=== PATIENT | female | born 1945 | race African-American/Black ===

== ENCOUNTER → 2016-07-31 | Outpatient (CLI) | payer MEDICARE ==
[2016-05-04 09:45] VITALS: BP 132/86
[~2016-07-31] MED LIST: ALLO300T PO; AMLO5TAB2 PO; ASPI325T4 PO; BIOT25005 PO; CA C1TAB28 PO; COLE625T2 PO; CRESTOR10 MG PO; DIAZ5TAB PO; ESOM40CA PO; HYDR-2666 PO; HYDR10SO PO; LIDO700A4 TP; LOSA50TA6 PO; METO-269 PO; MOVANTIK25 MG PO; SULF1TAB24 PO; SULI150T PO
--- NOTE | 2016-07-31 11:24 | RAD ---
Indication lung cancer. Lymphoma. Follow-up. Noncontrast imaging through the chest was performed and is compared to a study 01/31/2016. The ascending thoracic aorta is prominent measuring approximately 4.3 cm in greatest dimension similar to the previous exam. Some coronary artery calcification is noted. An acute finding in the mediastinum is not seen. Significant hilar or mediastinal adenopathy is not seen. No significant axillary adenopathy is seen. Imaging through the upper abdomen demonstrates several low-density masses in the liver compatible with cysts. The appearance is very similar to the previous exam. Some scarring is noted in the left upper lobe, likely on a postradiation basis. The appearance is similar. An acute finding in the chest is not seen. There is no dominant soft tissue mass. Evidence of tumor recurrence is not seen. IMPRESSION: Stable chest. No evidence of an acute process or tumor recurrence. Stable scarring in the left upper lobe likely on a postradiation basis. Hepatic cysts. Unchanged dilatation of the ascending thoracic aorta PQRS Compliance Statement: One or more of the following individualized dose reduction techniques were utilized for this examination: 1. Automated exposure control 2. Adjustment of the mA and/or kV according to patient size 3. Use of iterative reconstruction technique
== END | disposition home or self-care (01) ==
LOC: CT 10:15
PROVIDERS: ATTEND Radiology Radiation Oncology
DX: C34.90 Malignant neoplasm of unspecified part of unspecified bronchus or lung (principal); Z85.72 Personal history of non-Hodgkin lymphomas; K76.89 Other specified diseases of liver
CPT/HCPCS: 71250

== ENCOUNTER → 2017-02-05 | Outpatient (CLI) | payer MEDICARE ==
[2016-05-04 09:45] VITALS: BP 132/86
[~2017-02-05] MED LIST changes: -ASPI325T4 PO; +ASPI325T8 PO; -BIOT25005 PO; +BIOT25006 PO; +COLE625T12 PO; -COLE625T2 PO; -HYDR-2666 PO; +HYDR-2758 PO
--- NOTE | 2017-02-05 10:44 | RAD ---
EXAM: CT of the chest without intravenous contrast. HISTORY: Left upper lobe lung cancer. TECHNIQUE: Computed tomography of the chest was performed without intravenous contrast. COMPARISON: 07/31/2016. FINDINGS: Images of the upper abdomen reveal multiple stable cysts in the liver that measure up to 5 cm. Bone windows reveal no suspicious lesions. There is a nondisplaced fracture of the left anterior 3rd rib. There are no pathologically enlarged mediastinal or axillary lymph nodes. There is no pleural or pericardial effusion. The heart is not enlarged. There are atherosclerotic calcifications of the coronary arteries. A scarlike density in the left upper lobe measures 5.7 x 2.7 cm and is decreased in size. This is mostly posttreatment change about the previously noted lesion. There are no clearly new nodules. IMPRESSION: 1. A region of posttreatment change in the left upper lobe has decreased in size. No evidence of metastatic disease. *One or more of the following individualized dose reduction techniques were utilized for this examination: 1. Automated exposure control. 2. Adjustment of the mA and/or kV according to patient size. 3. Use of iterative reconstruction technique.
== END | disposition home or self-care (01) ==
LOC: CT 09:32
PROVIDERS: ATTEND Radiology Radiation Oncology
DX: C34.12 Malignant neoplasm of upper lobe, left bronchus or lung (principal)
CPT/HCPCS: 71250

== ENCOUNTER 2017-07-03 08:10 | Emergency (ER) | payer MEDICARE ==
[2017-07-03 08:47] LABS: ADD MAN DIFF? YES; BASO % 1 % (0-3); EOS # 0.1 x10^3/uL (0.0-0.7); EOS % 1 % (0-3); HEMATOCRIT 42.1 % (36.0-47.0); HEMOGLOBIN 14.2 g/dL (12.0-15.5); LYMPH # 2.3 x10^3/uL (1.0-4.8); LYMPH % 47 % (24-48); MEAN CORPUSCULAR HEMOGLOBIN 31 pg (25-35); MEAN CORPUSCULAR HGB CONC 34 g/dL (31-37); MEAN CORPUSCULAR VOLUME 92 fL (79-100); MONO # 0.4 x10^3/uL (0.0-1.1); MONO % 9 % (0-9); NEUT # 2.2 x10^3uL (1.8-7.7); NEUT % 43 % (31-73); PLATELET COUNT 236 x10^3/uL (140-400); RED BLOOD COUNT 4.59 x10^6/uL (3.50-5.40); RED CELL DISTRIBUTION WIDTH 14.1 % (11.5-14.5)
[2017-07-03] MEDS: DOCUSATE 100 MG/10 ML SOLUTION. AS (08:51)
[2017-07-03] MEDS: MECLIZINE HCL 12.5 MG TABLET. PO (08:51)
[2017-07-03] MEDS: ONDANSETRON PF 4 MG/2 ML VIAL. IV (08:51)
[2017-07-03] MEDS: IV NORMAL SALINE 1000ML BAG 1,000 ML IV (08:51)
[2017-07-03 08:57] LABS: ANION GAP 10 (6-14); BLOOD UREA NITROGEN 15 mg/dL (7-20); BUN/CREATININE RATIO 19 (6-20); CALCIUM 9.4 mg/dL (8.5-10.1); CARBON DIOXIDE 30 mmol/L (21-32); CHLORIDE 101 mmol/L (98-107); CREATININE 0.8 mg/dL (0.6-1.0); GFR 85.3; GLUCOSE 115 mg/dL (70-99); POTASSIUM 3.4 mmol/L (3.5-5.1); SODIUM 141 mmol/L (136-145)
[2017-07-03 09:03] LABS: ALBUMIN 3.6 g/dL (3.4-5.0); ALBUMIN/GLOBULIN RATIO 0.7 (1.0-1.7); ALK PHOS 91 U/L (46-116); ALT (SGPT) 37 U/L (14-59); AST (SGOT) 35 U/L (15-37); LIPASE 191 U/L (73-393); MAGNESIUM 1.6 mg/dL (1.8-2.4); TOTAL BILIRUBIN 0.4 mg/dL (0.2-1.0); TOTAL PROTEIN 8.6 g/dL (6.4-8.2)
[2017-07-03 09:05] LABS: TROPONINI < 0.017 ng/mL (0.000-0.055)
[2017-07-03 09:10] LABS: CKMB INDEX 0.9 % (0-4); CKMB MASS 1.4 ng/mL (0.0-3.6); CREATINE KINASE 163 U/L (26-192)
[2017-07-03 09:10] LABS: NT-PRO BNP 102 pg/mL (0-124)
[2017-07-03 09:11] LABS: THYROID STIM HORMONE (TSH) 2.718 uIU/mL (0.358-3.74)
[2017-07-03 11:07] LABS: % BANDS 1 % (0-9); % EOS 1 % (0-5); % LYMPHS 43 % (24-48); % MONOS 9 % (0-10); % SEGS 46 % (35-66); PLT ESTIMATE ADEQUATE (ADEQUATE)
== END 2017-07-03 11:17 | disposition home or self-care (01) ==
LOC: ER 08:10
DX: R42 Dizziness and giddiness (principal); H61.23 Impacted cerumen, bilateral; K21.9 Gastro-esophageal reflux disease without esophagitis; E78.00 Pure hypercholesterolemia, unspecified; I10 Essential (primary) hypertension; Z90.710 Acquired absence of both cervix and uterus; Z88.5 Allergy status to narcotic agent
CPT/HCPCS: 36415; 71045; 80053; 82553; 83690; 83735; 83880; 84443; 84484; 85007; 85025; 93005; 96361; 96374; 99285-25; J2405; J7030; J8597

== ENCOUNTER → 2017-07-26 | Outpatient (CLI) | payer MEDICARE ==
[2017-07-26] MEDS: IOHEXOL 300 MG/ML 100ML VIAL. IV (09:04)
[2017-07-26] MEDS: IOHEXOL 240 MG/ML 50ML VIAL. PO (09:05)
== END | disposition home or self-care (01) ==
LOC: CT 07:22
DX: C83.39 Diffuse large B-cell lymphoma, extranodal and solid organ sites (principal); M47.896 Other spondylosis, lumbar region; K42.9 Umbilical hernia without obstruction or gangrene; R91.1 Solitary pulmonary nodule
CPT/HCPCS: 71260; 74177; Q9966; Q9967

== ENCOUNTER → 2017-08-05 | Outpatient (CLI) | payer MEDICARE | END | disposition home or self-care (01) | LOC: PETSC 11:13 | DX: C34.92 Malignant neoplasm of unspecified part of left bronchus or lung (principal); K76.9 Liver disease, unspecified; Z90.710 Acquired absence of both cervix and uterus | CPT/HCPCS: 78815; A9552 ==

== ENCOUNTER 2017-10-03 08:48 | Emergency (ER) | payer MEDICARE ==
[2017-10-03] MEDS: DIPHTH,PERTUSS(ACELL),TET TOX 0.5 ML DISP.SYRIN. VAX IM (10:14)
== END 2017-10-03 10:28 | disposition home or self-care (01) ==
LOC: ER 08:48
DX: L02.211 Cutaneous abscess of abdominal wall (principal); E78.00 Pure hypercholesterolemia, unspecified; E03.9 Hypothyroidism, unspecified; I10 Essential (primary) hypertension; Z90.710 Acquired absence of both cervix and uterus
CPT/HCPCS: 90471; 90715; 99283-25

== ENCOUNTER → 2018-02-14 | Outpatient (CLI) | payer MEDICARE ==
[2017-10-03 09:19] VITALS: BP 132/76
[~2018-02-14] MED LIST changes: -AMLO5TAB2 PO; +AMLO5TAB7 PO; +CLIN150C14 PO; +CONTRAST GIVEN. MC PRN; +IOHEXOL 240 MG/ML 50ML VIAL. PO ONE; +IOHEXOL 300 MG/ML 100ML VIAL. IV ONE; -LOSA50TA6 PO; +LOSA50TA7 PO; +MECL12.52 PO; +MUPI15CR TP
--- NOTE | 2018-02-14 10:59 | RAD ---
CT of the chest, abdomen, and pelvis with contrast 02/14/2018 INDICATION: History of lymphoma. COMPARISON STUDY: PET/CT August 05, 2017 TECHNIQUE: Multidetector CT imaging of the chest was performed following administration of IV contrast. FINDINGS: CHEST: No pathologically enlarged axillary adenopathy or supraclavicular adenopathy is identified. No mediastinal adenopathy is seen. Heart size is top normal. No pericardial effusion is seen. Some coronary calcification is noted. Area of consolidation in the left upper lobe with associated volume loss is stable in the interim since comparison exam. Small subpleural nodule in the left upper lobe measuring 3 mm in diameter is also stable (axial image 15). No other new masses or consolidations are identified. No pleural effusion is seen. Abdomen pelvis: Multiple low density lesions involving the liver are unchanged from comparison study, consistent with cysts/hamartoma. Solid viscera of the abdomen demonstrate no acute abnormality. There is no evidence of bowel obstruction. No acute inflammatory changes involving visualized bowel are identified. The appendix is unremarkable. The bladder is unremarkable. No free fluid or free air is seen in the abdomen or pelvis. Patient is status post hysterectomy. No pathologically enlarged inguinal, abdominal, or pelvic adenopathy is identified. No evidence of acute osseous abnormality is seen. Degenerative changes of the thoracic and lumbosacral spine noted. IMPRESSION: 1.Stable CT appearance of the chest abdomen and pelvis 2. Stable focal consolidation the left upper lobe with associated mild volume loss 3. No acute intra-abdominal findings CT DOSING PQRS STATEMENT: One or more of the following individualized dose reduction techniques were utilized for this examination: 1. Automated exposure control 2. Adjustment of the mA and/or kV according to patient size 3. Use of iterative reconstruction technique Electronically signed by: Ricco Jay MD (02/14/2018 10:56 AM) [id number]
== END | disposition home or self-care (01) ==
LOC: CT 08:54
PROVIDERS: ATTEND Internal Medicine Hematology & Oncology
DX: M51.37 Other intervertebral disc degeneration, lumbosacral region (principal); M51.34 Other intervertebral disc degeneration, thoracic region; Z90.710 Acquired absence of both cervix and uterus; Z85.71 Personal history of Hodgkin lymphoma
CPT/HCPCS: 71260; 74177; Q9966; Q9967

== ENCOUNTER 2018-05-02 04:29 | Emergency (ER) | payer MEDICARE ==
[~2018-05-02] VITALS: Ht 154.9 cm; Wt 88.5 kg
[~2018-05-02 04:29] MED LIST changes: -CONTRAST GIVEN. MC PRN; -HYDR-2758 PO; +HYDR-2761 PO; -IOHEXOL 240 MG/ML 50ML VIAL. PO ONE; -IOHEXOL 300 MG/ML 100ML VIAL. IV ONE; +LOSA-73 PO; -LOSA50TA7 PO
--- NOTE | 2018-05-02 05:00 | PHYS DOC ---
Past Medical History Past Medical History: Cancer, GERD, High Cholesterol, Hypertension, Other Additional Past Medical Histor: Non-Hodgkins lymphoma Past Surgical History: Hysterectomy, Tonsillectomy, Other Additional Past Surgical Histo: CATARACT SX Alcohol Use: None Drug Use: None Adult General Chief Complaint Chief Complaint: COUGH HPI HPI Patient is a 72 year old female who presents with coughing up blood. This started as a small amount approximately 8 days ago but became much worse since she woke up this morning. Patient denies any recent changes in weight. Cough seems to make this worse. Patient called her division chair and had doxycycline as well as prednisone prescribed which she has been on for the past 8 days. Patient notes that she has had some subjective fever, no chills, and has not taken her temperature. [] Review of Systems Review of Systems Constitutional: Denies fever or chills [] Eyes: Denies change in visual acuity, redness, or eye pain [] HENT: Denies nasal congestion or sore throat [] Respiratory: See history of present illness[] Cardiovascular: No chest pain or palpitations[] GI: Denies abdominal pain, nausea, vomiting, bloody stools or diarrhea [] : Denies dysuria or hematuria [] Musculoskeletal: Denies back pain or joint pain [] Integument: Denies rash or skin lesions [] Neurologic: Denies headache, focal weakness or sensory changes [] Endocrine: Denies polyuria or polydipsia [] All other systems were reviewed and found to be within normal limits, except as documented in this note. Current Medications Current Medications Current Medications Medications (Trade) Dose Ordered Sig/Gerardo Start Time Stop Time Status Last Admin Dose Admin Info (CONTRAST GIVEN -- Rx MONITORING) 1 each PRN DAILY PRN 05/02/18 05:45 05/04/18 05:44 Iohexol (Omnipaque 300 Mg/ml) 75 ml 1X ONCE 05/02/18 06:00 05/02/18 06:01 DC 05/02/18 05:49 75 ML Magnesium Sulfate 50 ml @ 25 mls/hr 1X ONCE 05/02/18 06:30 05/02/18 08:29 05/02/18 06:29 25 MLS/HR Potassium Chloride (Klor-Con) 40 meq 1X ONCE 05/02/18 06:00 05/02/18 06:01 DC 05/02/18 06:29 40 MEQ Allergies Allergies Allergies Coded Allergies Type Severity Reaction Last Updated Verified codeine Allergy Intermediate Itching 08/17/13 Yes Penicillins Allergy Unknown 10/03/17 Yes Physical Exam Physical Exam Constitutional: Well developed, well nourished, no acute distress, non-toxic appearance. [] HENT: Normocephalic, atraumatic, bilateral external ears normal, oropharynx moist, no oral exudates, nose normal. [] Eyes: PERRLA, EOMI, conjunctiva normal, no discharge. [] Neck: Normal range of motion, no tenderness, supple, no stridor. [] Cardiovascular:Heart rate regular rhythm, no murmur [] Lungs & Thorax: Bilateral breath sounds clear to auscultation [] Abdomen: Bowel sounds normal, soft, no tenderness, no masses, no pulsatile masses. [] Skin: Warm, dry, no erythema, no rash. [] Back: No tenderness, no CVA tenderness. [] Extremities: No tenderness, no cyanosis, no clubbing, ROM intact, no edema. [] Neurologic: Alert and oriented X 3, normal motor function, normal sensory function, no focal deficits noted. [] Psychologic: Affect normal, judgement normal, mood normal. [] Current Patient Data Vital Signs Vital Signs Date Time Temp Pulse Resp B/P (MAP) Pulse Ox O2 Delivery O2 Flow Rate FiO2 05/02/18 05:15 71 117/69 (85) 94 Room Air 05/02/18 04:35 98.2 15 98.2 Lab Values Laboratory Tests Test 05/02/18 05:10 White Blood Count 8.1 x10^3/uL (4.0-11.0) Red Blood Count 4.21 x10^6/uL (3.50-5.40) Hemoglobin 13.2 g/dL (12.0-15.5) Hematocrit 38.6 % (36.0-47.0) Mean Corpuscular Volume 92 fL (79-100) Mean Corpuscular Hemoglobin 31 pg (25-35) Mean Corpuscular Hemoglobin Concent 34 g/dL (31-37) Red Cell Distribution Width 13.5 % (11.5-14.5) Platelet Count 234 x10^3/uL (140-400) Neutrophils (%) (Auto) 43 % (31-73) Lymphocytes (%) (Auto) 49 % (24-48) H Monocytes (%) (Auto) 7 % (0-9) Eosinophils (%) (Auto) 0 % (0-3) Basophils (%) (Auto) 1 % (0-3) Neutrophils # (Auto) 3.5 x10^3uL (1.8-7.7) Lymphocytes # (Auto) 4.0 x10^3/uL (1.0-4.8) Monocytes # (Auto) 0.6 x10^3/uL (0.0-1.1) Eosinophils # (Auto) 0.0 x10^3/uL (0.0-0.7) Basophils # (Auto) 0.1 x10^3/uL (0.0-0.2) Prothrombin Time 14.0 SEC (11.7-14.0) Prothrombin Time INR 1.1 (0.8-1.1) Sodium Level 144 mmol/L (136-145) Potassium Level 2.8 mmol/L (3.5-5.1) *L Chloride Level 106 mmol/L (98-107) Carbon Dioxide Level 33 mmol/L (21-32) H Anion Gap 5 (6-14) L Blood Urea Nitrogen 23 mg/dL (7-20) H Creatinine 1.0 mg/dL (0.6-1.0) Estimated GFR (Cockcroft-Gault) 65.9 Glucose Level 103 mg/dL (70-99) H Calcium Level 9.6 mg/dL (8.5-10.1) Magnesium Level 1.4 mg/dL (1.8-2.4) L Laboratory Tests 05/02/18 05:10 Laboratory Tests 05/02/18 05:10 EKG EKG [] Radiology/Procedures Radiology/Procedures [PROCEDURE: CT CHEST W/CONTRAST CT chest with contrast 05/02/2018. Reason for exam: Worsening hemoptysis. History of lung cancer. Helical CT images were made through the chest using an infusion of 75 mL Omnipaque 300. Sagittal and coronal reconstructions were obtained. Exposure: One or more of the following individualized dose reduction techniques were utilized for this examination: 1. Automated exposure control 2. Adjustment of the mA and/or kV according to patient size 3. Use of iterative reconstruction technique. Comparison is made with a prior study of 07/26/2017. FINDINGS: A bandlike opacity persists in the left upper lobe and appears similar to the prior exam. This could be posttreatment in nature. There is now a small area of groundglass infiltrate medially in the right lower lobe. It is noted that there is a vessel supplying this region apparently arising from the aorta, and this is consistent with pulmonary sequestration. No other pulmonary parenchymal abnormality is seen. The central airways show no obstruction. There appear to be secretions or fluid in right lower lobe bronchi. No enlarged lymph nodes have become apparent. Images through the upper abdomen again show multiple well-defined low-density liver lesions possibly indicating cysts. These appear unchanged. No new abnormality is seen. IMPRESSION: There is a small area of infiltrate in the right lower lobe. This could indicate an area of hemorrhage in the lung. There is a small systemic artery arising from the aorta and supplying this region. This suggests pulmonary sequestration, although the cause for hemorrhage, if present, is unknown. ] Course & Med Decision Making Course & Med Decision Making Pertinent Labs and Imaging studies reviewed. (See chart for details) ED course: Patient arrived, was placed in bed, in tolerated exam well. After the return of the low potassium, oral supplementation was administered and a magnesium level was ordered. Patient was transported to and from CT without any complications. At 6 AM, patient care was endorsed to Dr. Alvarado with CT results pending. Magnesium replacement was additionally ordered. Medical decision making: Patient does not appear to be anemic. Patient does have hypokalemia and hypomagnesemia. Given her history of previous lung cancer and the hemoptysis, concern is present for new tumor versus infection. Less likely based on her history is pulmonary embolism.[] 6:35 AM: Pt care assumed from Dr Ritter at 6 AM shift change. Patient has been reassessed. Patient states that for the past 10 days or so, she has had a cough productive of some sputum, which initially started out as whitish, but became increasingly bloody. She states that over the past 24 hours she has coughed up 3 specimens of mucus, none bigger than a quarter dollar, but the last one of which this morning was more bright red blood and mucus. She states that yesterday the blood that was mixed with her mucus seemed somewhat darker and she thought that it was clearing up. She called her division chair office, as she has a past history of lung cancer, and was prescribed doxycycline and prednisone, which she has been taking for the past 8 days. She denies any significant shortness of breath, different than her baseline. She does use an inhaler chronically. She has not had any pleuritic pain. On exam, she appears nontoxic, is coherent, has some faint expiratory wheezes in her right lower lobe. Her CT and labs have been reviewed. She feels well enough to go home. I discussed the patient's case and imaging and lab results with her division chair , Dr. Echols. He recommended starting the patient on a quinolone, and will see the patient in the office on Wednesday at 3:30 PM. The patient feels well enough to go home, and I discussed test results, the need for close follow-up and return precautions. Dragon Disclaimer Dragon Disclaimer This electronic medical record was generated, in whole or in part, using a voice recognition dictation system. Departure Departure Impression: Primary Impression: Pneumonia Additional Impressions: Hemoptysis Hypokalemia Hypomagnesemia Disposition: 01 HOME, SELF-CARE Condition: STABLE Referrals: ANNE LUNA MD (PCP) KENIA ECHOLS MD Patient Instructions: Hemoptysis, Pneumonia, Adult Additional Instructions: Return to medical care for any new or worsening symptoms, development of increasing shortness of breath, development of significant or increased blood and urine mucus, fevers, dizziness, lightheadedness, or any other new, or concerning symptoms. Dr. Echols will see you in the office at 3:30 PM on Wednesday. Please call Wednesday morning to confirm the appointment time. Scripts Magnesium Oxide (MAGNESIUM OXIDE) 400 Mg Tablet 1 TAB PO BID for 14 Days, #28 TAB 0 Refills Prov: MAGED ALVARADO MD 05/02/18 Potassium Chloride (POTASSIUM CHLORIDE) 20 Meq Tablet.er 20 MEQ PO DAILY for 14 Days, #14 TAB.SR Prov: MAGED ALVARADO MD 05/02/18 Levofloxacin (LEVAQUIN) 750 Mg Tablet 1 TAB PO DAILY, #7 TAB Prov: MAGED ALVARADO MD 05/02/18 Problem Qualifiers EZRARASHADDIANA DO May 02, 2018 05:00 MAGED ALVARADO MD May 02, 2018 06:41
[2018-05-02 05:22] LABS: BASO # 0.1 x10^3/uL (0.0-0.2); BASO % 1 % (0-3); EOS % 0 % (0-3); HEMATOCRIT 38.6 % (36.0-47.0); HEMOGLOBIN 13.2 g/dL (12.0-15.5); LYMPH % 49 % (24-48); MEAN CORPUSCULAR HEMOGLOBIN 31 pg (25-35); MEAN CORPUSCULAR HGB CONC 34 g/dL (31-37); MEAN CORPUSCULAR VOLUME 92 fL (79-100); MONO # 0.6 x10^3/uL (0.0-1.1); MONO % 7 % (0-9); NEUT # 3.5 x10^3uL (1.8-7.7); NEUT % 43 % (31-73); PLATELET COUNT 234 x10^3/uL (140-400); RED BLOOD COUNT 4.21 x10^6/uL (3.50-5.40); RED CELL DISTRIBUTION WIDTH 13.5 % (11.5-14.5); WHITE BLOOD COUNT 8.1 x10^3/uL (4.0-11.0)
[2018-05-02 05:27] LABS: CALCIUM 9.6 mg/dL (8.5-10.1); GFR 65.9
[2018-05-02 05:30] LABS: POTASSIUM 2.8 mmol/L (3.5-5.1)
[2018-05-02] MEDS ORDERED: CONTRAST GIVEN. MC PRN (05:45)
[2018-05-02] MEDS ORDERED: POTASSIUM CHLORIDE 20 MEQ TABLET.ER. PO ONE (06:00)
[2018-05-02] MEDS ORDERED: IOHEXOL 300 MG/ML 100ML VIAL. IV ONE (06:00)
--- NOTE | 2018-05-02 06:13 | RAD ---
CT chest with contrast 05/02/2018. Reason for exam: Worsening hemoptysis. History of lung cancer. Helical CT images were made through the chest using an infusion of 75 mL Omnipaque 300. Sagittal and coronal reconstructions were obtained. Exposure: One or more of the following individualized dose reduction techniques were utilized for this examination: 1. Automated exposure control 2. Adjustment of the mA and/or kV according to patient size 3. Use of iterative reconstruction technique. Comparison is made with a prior study of 07/26/2017. FINDINGS: A bandlike opacity persists in the left upper lobe and appears similar to the prior exam. This could be posttreatment in nature. There is now a small area of groundglass infiltrate medially in the right lower lobe. It is noted that there is a vessel supplying this region apparently arising from the aorta, and this is consistent with pulmonary sequestration. No other pulmonary parenchymal abnormality is seen. The central airways show no obstruction. There appear to be secretions or fluid in right lower lobe bronchi. No enlarged lymph nodes have become apparent. Images through the upper abdomen again show multiple well-defined low-density liver lesions possibly indicating cysts. These appear unchanged. No new abnormality is seen. IMPRESSION: There is a small area of infiltrate in the right lower lobe. This could indicate an area of hemorrhage in the lung. There is a small systemic artery arising from the aorta and supplying this region. This suggests pulmonary sequestration, although the cause for hemorrhage, if present, is unknown. Electronically signed by: Rancho Pedroza Jr., MD (05/02/2018 6:09 AM) [facility]
[2018-05-02] MEDS ORDERED: MAGNESIUM SULFATE 2GM 50 ML IV ONE (06:30)
[2018-05-02] MEDS ORDERED: POTA20TA82 PO (06:46)
[2018-05-02] MEDS ORDERED: MAGN400T3 PO (06:46)
[2018-05-02] MEDS ORDERED: LEVO750T31 PO (06:46)
[2018-05-02 07:24] VITALS: BP 133/69
== END 2018-05-02 07:38 | disposition home or self-care (01) ==
LOC: ER 04:29
DX: J18.9 Pneumonia, unspecified organism (principal); R04.2 Hemoptysis; E87.6 Hypokalemia; E83.42 Hypomagnesemia; E78.00 Pure hypercholesterolemia, unspecified; K21.9 Gastro-esophageal reflux disease without esophagitis; I10 Essential (primary) hypertension; Z88.0 Allergy status to penicillin; Z88.5 Allergy status to narcotic agent
CPT/HCPCS: 36415; 71260; 80048; 83735; 85025; 85610; 96365; 99283; J3475; Q9967

== ENCOUNTER 2018-07-17 09:04 | Inpatient (IN) | payer MEDICARE ==
[~2018-07-17] VITALS: Ht 165.1 cm; Wt 88.9 kg
[~2018-07-17 09:04] MED LIST changes: +AMLO5TAB10 PO; -AMLO5TAB7 PO; +LEVO750T31 PO; +MAGN400T3 PO; +POTA20TA82 PO
[2018-07-17] MEDS ORDERED: ALBUTEROL SULFATE 2.5 MG/3 ML NEBU. NEB ONE (09:15)
[2018-07-17] MEDS ORDERED: IPRATRPIUM/ALBUTEROL 0.5/2.5MG 3 ML NEBU. NEB ONE (09:15)
[2018-07-17 09:35] LABS: BASO % 1 % (0-3); EOS % 1 % (0-3); HEMATOCRIT 42.6 % (36.0-47.0); HEMOGLOBIN 14.1 g/dL (12.0-15.5); LYMPH # 2.7 x10^3/uL (1.0-4.8); LYMPH % 38 % (24-48); MEAN CORPUSCULAR HEMOGLOBIN 31 pg (25-35); MEAN CORPUSCULAR HGB CONC 33 g/dL (31-37); MEAN CORPUSCULAR VOLUME 93 fL (79-100); MONO # 0.4 x10^3/uL (0.0-1.1); MONO % 6 % (0-9); NEUT # 3.9 x10^3uL (1.8-7.7); NEUT % 55 % (31-73); PLATELET COUNT 238 x10^3/uL (140-400); RED CELL DISTRIBUTION WIDTH 14.6 % (11.5-14.5); WHITE BLOOD COUNT 7.1 x10^3/uL (4.0-11.0)
--- NOTE | 2018-07-17 09:45 | RAD ---
AP chest. HISTORY: Cough, short of breath AP view was taken of the chest. There is linear scarring on the left without change compared to an old study from June 2017. Heart is normal in size. There are no acute infiltrates. There is no effusion. There is arthritis in both shoulders. IMPRESSION: 1. No acute infiltrates. Electronically signed by: Chavez Bautista MD (07/17/2018 9:42 AM) [facility]
[2018-07-17 09:55] LABS: CALCIUM 9.2 mg/dL (8.5-10.1); CREATININE 0.9 mg/dL (0.6-1.0); GFR 74.3; POTASSIUM 3.6 mmol/L (3.5-5.1)
[2018-07-17 10:00] LABS: ALBUMIN 3.5 g/dL (3.4-5.0); ALBUMIN/GLOBULIN RATIO 0.9 (1.0-1.7); TOTAL BILIRUBIN 0.4 mg/dL (0.2-1.0); TOTAL PROTEIN 7.4 g/dL (6.4-8.2)
[2018-07-17 10:19] LABS: INFLUENZA A PATIENT NEGATIVE (NEGATIVE); INFLUENZA B PATIENT NEGATIVE (NEGATIVE)
[2018-07-17] MEDS ORDERED: methylPREDNISolone SOD SUCC PF 125 MG/2 ML VIAL. IV ONE (11:00)
[2018-07-17] MEDS ORDERED: ALBUTEROL SULFATE 2.5 MG/3 ML NEBU. CONT NEB ONE (11:00)
--- NOTE | 2018-07-17 11:02 | PHYS DOC ---
Past Medical History Past Medical History: Cancer, GERD, High Cholesterol, Hypertension, Other Additional Past Medical Histor: Non-Hodgkins lymphoma Past Surgical History: Hysterectomy, Tonsillectomy, Other Additional Past Surgical Histo: CATARACT SX Alcohol Use: None Drug Use: None Adult General Chief Complaint Chief Complaint: DYSPNEA/RESPIRATOY DISTRESS HPI HPI Patient is a 73 year old female who presents with shortness of breath. This is been going on for approximately the past week or so. Patient was seen by her heel edge inker machine and started on additional treatment to include doxycycline. She reports that this is not getting any better and in fact getting worse over time. Patient notes that she is unable to lay flat due to increased shortness of breath which is also new for her. Exertion as well as laying flat make it worse. Her medicines help but not fully. Denies any fever. Notes that there is a cough that is nonproductive.[] Review of Systems Review of Systems Constitutional: Denies fever or chills [] Eyes: Denies change in visual acuity, redness, or eye pain [] HENT: Denies nasal congestion or sore throat [] Respiratory: See history of present illness[] Cardiovascular: No chest pain or palpitations[] GI: Denies abdominal pain, nausea, vomiting, bloody stools or diarrhea [] : Denies dysuria or hematuria [] Musculoskeletal: Denies back pain or joint pain [] Integument: Denies rash or skin lesions [] Neurologic: Denies headache, focal weakness or sensory changes [] Endocrine: Denies polyuria or polydipsia [] All other systems were reviewed and found to be within normal limits, except as documented in this note. Current Medications Current Medications Current Medications Medications (Trade) Dose Ordered Sig/Gerardo Start Time Stop Time Status Last Admin Dose Admin Albuterol Sulfate (Ventolin Neb Soln) 10 mg 1X ONCE 07/17/18 11:00 07/17/18 11:01 DC 07/17/18 11:20 10 MG Albuterol/ Ipratropium (Duoneb) 3 ml 1X ONCE 07/17/18 09:15 07/17/18 09:16 DC 07/17/18 09:32 3 ML Methylprednisolone Sodium Succinate (SOLU-Medrol 125MG VIAL) 125 mg 1X ONCE 07/17/18 11:00 07/17/18 11:01 DC 07/17/18 11:00 125 MG Allergies Allergies Allergies Coded Allergies Type Severity Reaction Last Updated Verified codeine Allergy Intermediate Itching 08/17/13 Yes Penicillins Allergy Unknown 10/03/17 Yes Physical Exam Physical Exam Constitutional: Well developed, well nourished, moderate discomfort, non-toxic appearance. [] HENT: Normocephalic, atraumatic, bilateral external ears normal, oropharynx moist, no oral exudates, nose normal. [] Eyes: PERRLA, EOMI, conjunctiva normal, no discharge. [] Neck: Normal range of motion, no tenderness, supple, no stridor. [] Cardiovascular:Heart rate regular rhythm, no murmur [] Lungs & Thorax: Bilateral breath sounds with inspiratory and expiratory wheezes , increased work of breathing[] Abdomen: Bowel sounds normal, soft, no tenderness, no masses, no pulsatile masses. [] Skin: Warm, dry, no erythema, no rash. [] Back: No tenderness, no CVA tenderness. [] Extremities: No tenderness, no cyanosis, no clubbing, ROM intact, no edema. [] Neurologic: Alert and oriented X 3, normal motor function, normal sensory function, no focal deficits noted. [] Psychologic: Affect normal, judgement normal, mood normal. [] Current Patient Data Vital Signs Vital Signs Date Time Temp Pulse Resp B/P (MAP) Pulse Ox O2 Delivery O2 Flow Rate FiO2 07/17/18 11:27 94 Nasal Cannula 3.0 07/17/18 09:10 97.4 106 24 164/94 (117) 97.4 Lab Values Laboratory Tests Test 07/17/18 09:20 07/17/18 09:50 White Blood Count 7.1 x10^3/uL (4.0-11.0) Red Blood Count 4.60 x10^6/uL (3.50-5.40) Hemoglobin 14.1 g/dL (12.0-15.5) Hematocrit 42.6 % (36.0-47.0) Mean Corpuscular Volume 93 fL (79-100) Mean Corpuscular Hemoglobin 31 pg (25-35) Mean Corpuscular Hemoglobin Concent 33 g/dL (31-37) Red Cell Distribution Width 14.6 % (11.5-14.5) H Platelet Count 238 x10^3/uL (140-400) Neutrophils (%) (Auto) 55 % (31-73) Lymphocytes (%) (Auto) 38 % (24-48) Monocytes (%) (Auto) 6 % (0-9) Eosinophils (%) (Auto) 1 % (0-3) Basophils (%) (Auto) 1 % (0-3) Neutrophils # (Auto) 3.9 x10^3uL (1.8-7.7) Lymphocytes # (Auto) 2.7 x10^3/uL (1.0-4.8) Monocytes # (Auto) 0.4 x10^3/uL (0.0-1.1) Eosinophils # (Auto) 0.0 x10^3/uL (0.0-0.7) Basophils # (Auto) 0.0 x10^3/uL (0.0-0.2) D-Dimer (Mary Beth) 0.68 ug/mlFEU (0.00-0.50) H Sodium Level 140 mmol/L (136-145) Potassium Level 3.6 mmol/L (3.5-5.1) Chloride Level 99 mmol/L (98-107) Carbon Dioxide Level 32 mmol/L (21-32) Anion Gap 9 (6-14) Blood Urea Nitrogen 12 mg/dL (7-20) Creatinine 0.9 mg/dL (0.6-1.0) Estimated GFR (Cockcroft-Gault) 74.3 BUN/Creatinine Ratio 13 (6-20) Glucose Level 144 mg/dL (70-99) H Calcium Level 9.2 mg/dL (8.5-10.1) Total Bilirubin 0.4 mg/dL (0.2-1.0) Aspartate Amino Transferase (AST) 24 U/L (15-37) Alanine Aminotransferase (ALT) 28 U/L (14-59) Alkaline Phosphatase 81 U/L (46-116) Troponin I Quantitative < 0.017 ng/mL (0.000-0.055) MT-Svg-V-Type Natriuretic Peptide 129 pg/mL (0-124) H Total Protein 7.4 g/dL (6.4-8.2) Albumin 3.5 g/dL (3.4-5.0) Albumin/Globulin Ratio 0.9 (1.0-1.7) L Influenza Type A Antigen Negative (NEGATIVE) Influenza Type B Antigen Negative (NEGATIVE) Laboratory Tests 07/17/18 09:20 Laboratory Tests 07/17/18 09:20 EKG EKG EKG shows a sinus rhythm at 72 bpm, left axis deviation, QTC of 429 ms, no ST elevations, interpreted by me at 0946 [] Radiology/Procedures Radiology/Procedures AP chest. HISTORY: Cough, short of breath AP view was taken of the chest. There is linear scarring on the left without change compared to an old study from June 2017. Heart is normal in size. There are no acute infiltrates. There is no effusion. There is arthritis in both shoulders. IMPRESSION: 1. No acute infiltrates. [] Course & Med Decision Making Course & Med Decision Making Pertinent Labs and Imaging studies reviewed. (See chart for details) ED course: Patient arrived, was placed in bed, in tolerated exam well. She was given a breathing treatment which didn't improve airflow and patient reported feeling better however there was still significant inspiratory and expiratory wheezes so an hour-long nebulizer treatment was administered along with IV steroids. 1240: After hour-long nebulizer treatment, lung sounds were improved however with trial of ambulation she desaturated to 88% with walking 10-15 feet. Consultation was made with her primary care physician who graciously admitted her. Medical decision making: Do not see any evidence of this being acute coronary syndrome nor CHF. Concerned about possibility of pulmonary embolism however her age-adjusted d-dimer is within normal limits and there is no respirophasic chest pain. Believe this to be asthma/COPD exacerbation especially in light of clearing with nebulizer treatments.[] Dragon Disclaimer Dragon Disclaimer This electronic medical record was generated, in whole or in part, using a voice recognition dictation system. Departure Departure Impression: Primary Impression: COPD exacerbation Disposition: ADMITTED INPATIENT Admitting Physician: Andres Fernández Condition: IMPROVED Referrals: ANDRES FERNÁNDEZ MD (PCP) DIANA MUNGUIA DO Jul 17, 2018 11:02
[2018-07-17] MEDS ORDERED: ONDANSETRON PF 4 MG/2 ML VIAL. IV PRN (13:00)
[2018-07-17] MEDS ORDERED: ACETAMINOPHEN 325 MG TABLET. PO PRN ×2 (13:00→15:15)
[2018-07-17 15:00] VITALS: BP 117/61
[2018-07-17] MEDS ORDERED: HYDROcodone/APAP 5/325MG 1 TAB TABLET PO PRN (15:15)
[2018-07-17] MEDS ORDERED: MAGNESIUM HYDROXIDE 2,400 MG/30 ML ORAL.SUSP. PO PRN (15:15)
[2018-07-17] MEDS ORDERED: guaiFENesin DM 200MG/20MG 10 ML SYRUP PO PRN (15:15)
[2018-07-17] MEDS ORDERED: diazePAM 5 MG TABLET PO PRN (15:15)
--- NOTE | 2018-07-17 15:17 | PDOC ---
Provider Note Provider Note history and physical dictated # [id number] ANNE LUNA MD Jul 17, 2018 15:17
[2018-07-17] MEDS ORDERED: ALBUTEROL SULFATE 2.5 MG/3 ML NEBU. NEB PRN (15:30)
[2018-07-17] MEDS: amLODIPine BESYLATE 10 MG TABLET PO SCH (16:00)
[2018-07-17] MEDS: METOPROLOL SUCC 24HR ER 25 MG TAB.ER.24H. PO SCH (16:00)
[2018-07-17] MEDS: IPRATRPIUM/ALBUTEROL 0.5/2.5MG 3 ML NEBU. NEB SCH ×2 (16:00→20:14)
[2018-07-17] MEDS: LOSARTAN POTASSIUM 50 MG TABLET. PO SCH (16:00)
[2018-07-17] MEDS: PANTOPRAZOLE 40 MG TABLET.DR. PO SCH (16:30)
[2018-07-17] MEDS ORDERED: MULT-317 PO (16:51)
[2018-07-17] MEDS ORDERED: CALC600T4 PO (16:51)
[2018-07-17] MEDS ORDERED: DOXY100C2 PO (16:58)
[2018-07-17] MEDS ORDERED: PRED-220 PO (16:58)
[2018-07-17] MEDS ORDERED: BENZ-8 PO (16:58)
[2018-07-17 16:59] LABS: BILIRUBIN,URINE NEGATIVE (NEG); CLARITY,URINE CLEAR; COLOR,URINE YELLOW; NITRITE,URINE NEGATIVE (NEG); PROTEIN,URINE NEGATIVE (NEG-TRACE); UROBILINOGEN,URINE 0.2 mg/dL (0.2 mg/dL)
[2018-07-17] MEDS: methylPREDNISolone SOD SUCC PF 40 MG/ML VIAL. IV SCH ×2 (17:10→21:04)
[2018-07-17] MEDS: ENOXAPARIN 40 MG/0.4 ML SYRINGE. SQ SCH (17:11)
[2018-07-17 17:14] LABS: BACTERIA,URINE 0 /HPF (0-FEW); RBC,URINE RARE /HPF (0-2); SQUAMOUS EPITHELIAL CELL,UR MOD /LPF; WBC,URINE 0 /HPF (0-4)
[2018-07-17] MEDS ORDERED: C.DIFF MED SCREEN BY RX. MC ONE (18:15)
--- NOTE | 2018-07-17 19:11 | HP ---
ADMIT DATE: 07/17/2018 LOCATION: She is in room 434. 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 She was short of breath with walking short distances and also when lying supine. She apparently spoke with her customer support agent, Dr. Echols who ordered doxycycline 100 mg b.i.d. and prednisone 30 mg daily for 5 days and Tessalon Perles 100 mg b.i.d., but her symptoms worsened and she sought help in the [facility] Emergency Room where she was noted to be hypoxic with oxygen saturations dropping to about 88% with walking in the Emergency Room. The patient's chest x-ray showed no infiltrate, but due to the hypoxia and dyspnea on exertion and bronchospasm, she was subsequently admitted to the hospital for further evaluation and treatment. ALLERGIES AND INTOLERANCES: INCLUDE PENICILLIN AND CODEINE. MEDICATIONS: Include amlodipine 10 mg every day, Crestor 10 mg every day, Wallace 5/325 one every 4 hours p.r.n., losartan 50 mg every day, metoprolol succinate 50 mg every day, Nexium 40 mg every day, potassium chloride 20 mEq every day, sulindac mg b.i.d., Valium 5 mg at bedtime p.r.n. and vitamin D 1000 units every day. 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 She also has a history of diverticulosis, non-Hodgkin's lymphoma in 2013, treated with chemo and radiation therapy. She had a colonoscopy in 2009, tonsillectomy, cataract extractions, colon polypectomy, bladder tacking procedure. SOCIAL HISTORY: She does not drink alcohol nor does she smoke cigarettes and she has not done so in the past. FAMILY HISTORY: Noncontributory. REVIEW OF SYSTEMS: GENERAL: There has been no fever, chills or sweats in the last 3 days. CARDIOVASCULAR: No chest pain. PULMONARY: She had shortness of breath and wheezing and coughing, dyspnea on exertion. GASTROINTESTINAL: She has had some loose stools since she started on her oral medication 3 days ago for her cough, which included the doxycycline, Tessalon Perles and the prednisone. SKIN: No rashes. The rest of systems reviewed are negative except as stated in history of present illness. PHYSICAL EXAMINATION: VITAL SIGNS: The temperature is 97.4 degrees, apical pulse is 80, respiratory rate is 18, blood pressure is 121/65, oxygen saturation 95% on 3 liters per nasal cannula. HEENT: Eyes: Gaze is conjugate. Mouth: Tongue is midline. NECK: There is no cervical lymphadenopathy or thyroid enlargement. HEART: Reveals an S1, S2. There is no S3 or murmur. LUNGS: Reveal some decreased breath sounds and bilateral expiratory wheezes. ABDOMEN: Soft, nontender. EXTREMITIES: Lower extremities without edema. SKIN: No rashes. NEUROLOGIC: Revealed no focal weakness of the extremity or facial asymmetry. She is coughing quite a bit in the room and had a dry cough while I was there. LABORATORY TESTS: White count was normal at 7.1, hemoglobin 14.1, platelet count 238,000, 55 polys, 38 lymphocytes. D-dimer was 0.68. Sodium 140, potassium 3.6, chloride 99, total CO2 is 32, BUN 12, creatinine 0.9, blood sugar 144. Liver function tests normal, proBNP 129. Troponin level less than 0.017. Albumin 3.5. Influenza A and B serology negative. Chest x-ray showed no acute infiltrate. Heart is normal in size. No pleural effusion seen. An electrocardiogram was ordered, but I do not see the EKG in the chart as of yet. ASSESSMENT: 1. Acute bronchitis with bronchospasm. She failed outpatient oral antibiotics and oral prednisone. 2. Hypoxia noted in the Emergency Room, the oxygen saturation is dropping 88% on room air with walking. She had dyspnea on exertion also then. 3. 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 4. History of non-Hodgkin's lymphoma treated with chemo and radiation therapy in 2013. 5. Hypertension. 6. Hyperlipidemia. 7. Fibromyalgia. PLAN: At this time is admitted to the hospital. She will be treated with oxygen, DuoNeb nebulizer treatments, IV Solu-Medrol and Levaquin. We will order a sputum culture. We will get a CAT scan of the chest to rule out pneumonia and also, we will consult Dr. Echols for Pulmonary. As mentioned, we will obtain a sputum for Gram stain and culture. We will put her on Lovenox for deep vein thrombosis prophylaxis. We will also decrease the metoprolol and maybe we can even taper off of it. Other medications will be resumed except the Crestor is not formulary and she can get that from home. We will hold sulindac for the time being as she is going to be on some IV Solu-Medrol. Repeat CBC and BMP tomorrow. ANNE LUNA MD DR: ALBAN/josé JOB#: [id number] / [id number]
[2018-07-17 19:30] VITALS: BP 137/76
[2018-07-17 23:00] VITALS: BP 108/68
[2018-07-18 03:00] VITALS: BP 144/89
[2018-07-18 05:40] LABS: CALCIUM 9.5 mg/dL (8.5-10.1); CREATININE 0.8 mg/dL (0.6-1.0); GFR 85.1; POTASSIUM 4.2 mmol/L (3.5-5.1)
[2018-07-18 05:49] LABS: BASO % 0 % (0-3); EOS % 0 % (0-3); HEMATOCRIT 40.9 % (36.0-47.0); HEMOGLOBIN 13.7 g/dL (12.0-15.5); LYMPH % 22 % (24-48); MEAN CORPUSCULAR HEMOGLOBIN 31 pg (25-35); MEAN CORPUSCULAR HGB CONC 34 g/dL (31-37); MEAN CORPUSCULAR VOLUME 92 fL (79-100); MONO # 0.2 x10^3/uL (0.0-1.1); MONO % 3 % (0-9); NEUT # 3.5 x10^3uL (1.8-7.7); NEUT % 74 % (31-73); PLATELET COUNT 237 x10^3/uL (140-400); RED BLOOD COUNT 4.43 x10^6/uL (3.50-5.40); RED CELL DISTRIBUTION WIDTH 14.4 % (11.5-14.5); WHITE BLOOD COUNT 4.7 x10^3/uL (4.0-11.0)
[2018-07-18] MEDS: methylPREDNISolone SOD SUCC PF 40 MG/ML VIAL. IV SCH ×3 (05:55→22:13)
[2018-07-18 07:00] VITALS: BP 138/84
--- NOTE | 2018-07-18 07:07 | EKG ---
[facility] [address] [place] [address] Test Date: 2018-07-17 Test Time: 09:41:25 Pat Name: REYNALDO RICO Department: Room: 434 1 Gender: F Cremator: : 1945 Requested By: DIANA MUNGUIA Order Number: [id number] Reading MD: Jordan Jorge MD Measurements Intervals [place] Rate: 72 P: 45 AK: 164 QRS: -41 QRSD: 94 T: 74 QT: 390 QTc: 429 Interpretive Statements SINUS RHYTHM ABNORMAL LEFT AXIS DEVIATION LEFT ANTERIOR FASCICULAR BLOCK T ABNORMALITY IN HIGH LATERAL LEADS ABNORMAL ECG Electronically Signed On 07-26-2018 22:19:25 CDT by Jordan Jorge MD
[2018-07-18] MEDS: PANTOPRAZOLE 40 MG TABLET.DR. PO SCH (07:30)
[2018-07-18] MEDS: IPRATRPIUM/ALBUTEROL 0.5/2.5MG 3 ML NEBU. NEB SCH ×4 (07:32→19:54)
[2018-07-18] MEDS ORDERED: POTASSIUM CHLORIDE 20 MEQ TABLET.ER. PO SCH (08:00)
[2018-07-18] MEDS: LOSARTAN POTASSIUM 50 MG TABLET. PO SCH (08:10)
[2018-07-18] MEDS: CHOLECALCIFEROL (VITAMIN D3) 1,000 UNIT TABLET PO SCH (08:10)
[2018-07-18] MEDS: amLODIPine BESYLATE 10 MG TABLET PO SCH (08:10)
[2018-07-18] MEDS: METOPROLOL SUCC 24HR ER 25 MG TAB.ER.24H. PO SCH (09:00)
[2018-07-18] MEDS ORDERED: C.DIFF MED SCREEN BY RX. MC PRN (09:00)
--- NOTE | 2018-07-18 09:42 | RAD ---
PQRS Compliance Statement: One or more of the following individualized dose reduction techniques were utilized for this examination: 1. Automated exposure control 2. Adjustment of the mA and/or kV according to patient size 3. Use of iterative reconstruction technique CT CHEST WO CONTRAST Clinical Indication: COUGH /pneumonia HX: LUNG CA Comparison: CT chest with contrast, some are 2017. TECHNIQUE: Helical CT imaging of the chest is performed without IV contrast. Findings: No adenopathy in the chest. Limited evaluation of the mike without IV contrast. Ectasia of the ascending thoracic aorta is stable. Coronary artery disease. Cardiac size normal, no pericardial effusion. There is no pleural effusion. Linear opacity in the left upper lobe is stable and may be sequela of prior therapy. Tiny tracheal diverticulum is stable, image 10. 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 Groundglass opacity in this location on the prior study has resolved. The lungs are otherwise clear. Multiple probable hepatic cysts are stable. Old nonunited fracture of the left anterolateral third rib. Degenerative endplate spurring of the thoracic spine. IMPRESSION: 1. Groundglass opacity in the medial right lower lobe noted on the prior study has resolved. 2. Stable probable scarring in the left upper lobe. Electronically signed by: Jose Sloan MD (07/18/2018 9:39 AM) [id number]
--- NOTE | 2018-07-18 10:07 | PDOC2 ---
GI CONSULT Reason For Consult: Solid food dysphagia HPI: HPI: 73 y/o female admitted w/ bronchitis. H/o lung cancer s/p radiation and h/o NHL s/p chemo/radiation. GI asked to see re: dysphagia. She reports intermittent dysphagia w/ pills and solid foods x 1 month. Gets stuck in upper throat or midchest - no regurg, coughing, vomiting - eventually passes. No odynophagia. Denies h/o GERD but takes Nexium QD. Had some abdominal pain prior to admission - says was really sore from coughing and this has resolved. No diarrhea, constipation, hematemesis, hematochezia, or melena. Not really sure about weight loss but doesn't think so. Hungry this morning - was NPO for chest CT. Reports having EGD w/ dilation for similar symptoms w/ Dr. Snyder ~2 years ago. Other notes indicate last colonoscopy was in 2009, also h/o colon polyps. Past imaging notes diverticulosis and chest CT this admission notes hepatic cysts. No GB or pancreas history. Takes ASA 325mg QD and recently prednisone for pulm issues. PMH: PMH: lung cancer and NHL as above, HTN, HLD, ?GERD, diverticulosis, colon polyp bone marrow biopsy, hysterectomy, bladder tuck, tonsillectomy, cataract removal FH: Family History: Cancer (niece - breast cancer in her 30s) Social History: Smoke: No ALCOHOL: none Drugs: None ROS: GEN: Denies fevers, chills, sweats HEENT: Denies blurred vision, sore throat CV: Denies chest pain RESP: +SOA +cough GI: Per HPI : Denies hematuria, dysuria ENDO: Denies weight changes NEURO: Denies confusion, dizziness MSK: Denies weakness, joint pain/swelling SKIN: Denies jaundice, pruritus Vitals: Vitals: Vital Signs Date Time Temp Pulse Resp B/P (MAP) Pulse Ox O2 Delivery O2 Flow Rate FiO2 07/18/18 07:34 94 Nasal Cannula 2.0 07/18/18 07:00 98.4 98 3 138/84 (102) 98.4 Labs: Labs: Laboratory Tests Test 07/17/18 16:45 07/18/18 05:05 Urine Collection Type Unknown Urine Color Yellow Urine Clarity Clear Urine pH 6.0 Urine Specific [place] <=1.005 Urine Protein Negative mg/dL (NEG-TRACE) Urine Glucose (UA) Negative mg/dL (NEG) Urine Ketones (Stick) Negative mg/dL (NEG) Urine Blood Negative (NEG) Urine Nitrite Negative (NEG) Urine Bilirubin Negative (NEG) Urine Urobilinogen Dipstick 0.2 mg/dL (0.2 mg/dL) Urine Leukocyte Esterase Negative (NEG) Urine RBC Rare /HPF (0-2) Urine WBC 0 /HPF (0-4) Urine Squamous Epithelial Cells Mod /LPF Urine Bacteria 0 /HPF (0-FEW) White Blood Count 4.7 x10^3/uL (4.0-11.0) Red Blood Count 4.43 x10^6/uL (3.50-5.40) Hemoglobin 13.7 g/dL (12.0-15.5) Hematocrit 40.9 % (36.0-47.0) Mean Corpuscular Volume 92 fL (79-100) Mean Corpuscular Hemoglobin 31 pg (25-35) Mean Corpuscular Hemoglobin Concent 34 g/dL (31-37) Red Cell Distribution Width 14.4 % (11.5-14.5) Platelet Count 237 x10^3/uL (140-400) Neutrophils (%) (Auto) 74 % (31-73) Lymphocytes (%) (Auto) 22 % (24-48) Monocytes (%) (Auto) 3 % (0-9) Eosinophils (%) (Auto) 0 % (0-3) Basophils (%) (Auto) 0 % (0-3) Neutrophils # (Auto) 3.5 x10^3uL (1.8-7.7) Lymphocytes # (Auto) 1.0 x10^3/uL (1.0-4.8) Monocytes # (Auto) 0.2 x10^3/uL (0.0-1.1) Eosinophils # (Auto) 0.0 x10^3/uL (0.0-0.7) Basophils # (Auto) 0.0 x10^3/uL (0.0-0.2) Sodium Level 140 mmol/L (136-145) Potassium Level 4.2 mmol/L (3.5-5.1) Chloride Level 100 mmol/L (98-107) Carbon Dioxide Level 33 mmol/L (21-32) Anion Gap 7 (6-14) Blood Urea Nitrogen 15 mg/dL (7-20) Creatinine 0.8 mg/dL (0.6-1.0) Estimated GFR (Cockcroft-Gault) 85.1 Glucose Level 137 mg/dL (70-99) Calcium Level 9.5 mg/dL (8.5-10.1) Allergies: Coded Allergies: codeine (Verified Allergy, Intermediate, Itching, 08/17/13) Penicillins (Verified Allergy, Unknown, 10/03/17) Medications: Current Medications Medications (Trade) Dose Ordered Sig/Gerardo Route PRN Reason Start Time Stop Time Status Last Admin Dose Admin Albuterol Sulfate (Ventolin Neb Soln) 10 mg 1X ONCE CONT NEB 07/17/18 11:00 07/17/18 11:01 DC 07/17/18 11:20 Methylprednisolone Sodium Succinate (SOLU-Medrol 125MG VIAL) 125 mg 1X ONCE IV 07/17/18 11:00 07/17/18 11:01 DC 07/17/18 11:00 Levofloxacin/ Dextrose 150 ml @ 100 mls/hr 1X ONCE IV 07/17/18 14:15 07/17/18 15:44 DC 07/17/18 15:08 Methylprednisolone Sodium Succinate (SOLU-Medrol 40MG VIAL) 40 mg Q8HRS IV 07/17/18 15:30 07/18/18 05:55 Albuterol/ Ipratropium (Duoneb) 3 ml RTQID NEB 07/17/18 16:00 07/18/18 07:32 Enoxaparin Sodium (Lovenox 40mg Syringe) 40 mg Q24H SQ 07/17/18 16:00 07/17/18 17:11 Diazepam (Valium) 5 mg PRN QHS PRN PO ANXIETY 07/17/18 15:15 07/18/18 00:57 Imaging: Imaging: CXR IMPRESSION: 1. No acute infiltrates. Chest CT IMPRESSION: 1. Groundglass opacity in the medial right lower lobe noted on the prior study has resolved. 2. Stable probable scarring in the left upper lobe. PE: GEN: NAD HEENT: Atraumatic, PERRL LUNGS: NC, clear anteriorly HEART: RRR ABD: NABS, S/ND/NT EXTREMITY: No edema SKIN: No rashes, no jaundice NEURO/PSYCH: A & O 3 A/P: A/P: Bronchitis H/o lung cancer and NHL w/ chemo/rad Dysphagia - intermittent, solids and pills, past EGD w/ esophageal dilation ?GERD CRC screen, h/o polyp Diverticulosis Probable hepatic cysts - stable on chest CT -- Agree w/ PPI. Consider EGD at some point. Okay for PO today per GI. Will attempt to review records of past 'scopes. FELICIA QUEVEDO Jul 18, 2018 10:06
--- NOTE | 2018-07-18 10:17 | PDOC ---
PROGRESS NOTES Subjective Subjective coughing a lot. difficulty expectorating sputum and is thick and white when she does. afebrile. wbc normal. ct chest showed no pneumonia or recurrent tumor Objective Objective Vital Signs Date Time Temp Pulse Resp B/P (MAP) Pulse Ox O2 Delivery O2 Flow Rate FiO2 07/18/18 07:34 94 Nasal Cannula 2.0 07/18/18 07:00 98.4 98 3 138/84 (102) 98.4 Intake and Output 07/18/18 06:59 Intake Total 900 ml Output Total 1300 ml Balance -400 ml Intake Oral 900 ml Output Urine Total 1300 ml Physical Exam Abdomen: Soft Heart: Normal S1, Normal S2 Extremities: No edema General: Alert HEENT: Atraumatic Lungs: Other (mild rhonchi) Neuro: Normal speech Psych/Mental Status: Mental status NL Skin: No rashes Assessment Assessment 1. Acute bronchitis with bronchospasm. She failed outpatient oral antibiotics and oral prednisone. 2. Hypoxia noted in the Emergency Room, the oxygen saturation is dropping 88% on room air with walking. She had dyspnea on exertion also then. 3. 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 4. History of non-Hodgkin's lymphoma treated with chemo and radiation therapy in 2013. 5. Hypertension. 6. Hyperlipidemia. 7. Fibromyalgia. solid food and pill dysphagia Plan Plan of Care continue oxygen and nebulizer rx and iv solumedrol add mucinex sputum culture pulmonary consult GI consult noted consult SP for swallow eval. video swallow if necessary start mucinex 6 min RA walk today continue protonix Comment Review of Relevant I have reviewed the following items bernard (where applicable) has been applied. Labs Laboratory Tests Test 07/17/18 09:20 07/17/18 09:50 07/17/18 16:45 07/18/18 05:05 White Blood Count 7.1 x10^3/uL (4.0-11.0) 4.7 x10^3/uL (4.0-11.0) Red Blood Count 4.60 x10^6/uL (3.50-5.40) 4.43 x10^6/uL (3.50-5.40) Hemoglobin 14.1 g/dL (12.0-15.5) 13.7 g/dL (12.0-15.5) Hematocrit 42.6 % (36.0-47.0) 40.9 % (36.0-47.0) Mean Corpuscular Volume 93 fL (79-100) 92 fL (79-100) Mean Corpuscular Hemoglobin 31 pg (25-35) 31 pg (25-35) Mean Corpuscular Hemoglobin Concent 33 g/dL (31-37) 34 g/dL (31-37) Red Cell Distribution Width 14.6 % (11.5-14.5) 14.4 % (11.5-14.5) Platelet Count 238 x10^3/uL (140-400) 237 x10^3/uL (140-400) Neutrophils (%) (Auto) 55 % (31-73) 74 % (31-73) Lymphocytes (%) (Auto) 38 % (24-48) 22 % (24-48) Monocytes (%) (Auto) 6 % (0-9) 3 % (0-9) Eosinophils (%) (Auto) 1 % (0-3) 0 % (0-3) Basophils (%) (Auto) 1 % (0-3) 0 % (0-3) Neutrophils # (Auto) 3.9 x10^3uL (1.8-7.7) 3.5 x10^3uL (1.8-7.7) Lymphocytes # (Auto) 2.7 x10^3/uL (1.0-4.8) 1.0 x10^3/uL (1.0-4.8) Monocytes # (Auto) 0.4 x10^3/uL (0.0-1.1) 0.2 x10^3/uL (0.0-1.1) Eosinophils # (Auto) 0.0 x10^3/uL (0.0-0.7) 0.0 x10^3/uL (0.0-0.7) Basophils # (Auto) 0.0 x10^3/uL (0.0-0.2) 0.0 x10^3/uL (0.0-0.2) D-Dimer (Mary Beth) 0.68 ug/mlFEU (0.00-0.50) Sodium Level 140 mmol/L (136-145) 140 mmol/L (136-145) Potassium Level 3.6 mmol/L (3.5-5.1) 4.2 mmol/L (3.5-5.1) Chloride Level 99 mmol/L (98-107) 100 mmol/L (98-107) Carbon Dioxide Level 32 mmol/L (21-32) 33 mmol/L (21-32) Anion Gap 9 (6-14) 7 (6-14) Blood Urea Nitrogen 12 mg/dL (7-20) 15 mg/dL (7-20) Creatinine 0.9 mg/dL (0.6-1.0) 0.8 mg/dL (0.6-1.0) Estimated GFR (Cockcroft-Gault) 74.3 85.1 BUN/Creatinine Ratio 13 (6-20) Glucose Level 144 mg/dL (70-99) 137 mg/dL (70-99) Calcium Level 9.2 mg/dL (8.5-10.1) 9.5 mg/dL (8.5-10.1) Total Bilirubin 0.4 mg/dL (0.2-1.0) Aspartate Amino Transf (AST/SGOT) 24 U/L (15-37) Alanine Aminotransferase (ALT/SGPT) 28 U/L (14-59) Alkaline Phosphatase 81 U/L (46-116) Troponin I Quantitative < 0.017 ng/mL (0.000-0.055) VH-Uyo-O-Type Natriuretic Peptide 129 pg/mL (0-124) Total Protein 7.4 g/dL (6.4-8.2) Albumin 3.5 g/dL (3.4-5.0) Albumin/Globulin Ratio 0.9 (1.0-1.7) Influenza Type A Antigen Negative (NEGATIVE) Influenza Type B Antigen Negative (NEGATIVE) Urine Collection Type Unknown Urine Color Yellow Urine Clarity Clear Urine pH 6.0 Urine Specific [place] <=1.005 Urine Protein Negative mg/dL (NEG-TRACE) Urine Glucose (UA) Negative mg/dL (NEG) Urine Ketones (Stick) Negative mg/dL (NEG) Urine Blood Negative (NEG) Urine Nitrite Negative (NEG) Urine Bilirubin Negative (NEG) Urine Urobilinogen Dipstick 0.2 mg/dL (0.2 mg/dL) Urine Leukocyte Esterase Negative (NEG) Urine RBC Rare /HPF (0-2) Urine WBC 0 /HPF (0-4) Urine Squamous Epithelial Cells Mod /LPF Urine Bacteria 0 /HPF (0-FEW) Laboratory Tests Test 07/17/18 16:45 07/18/18 05:05 Urine Collection Type Unknown Urine Color Yellow Urine Clarity Clear Urine pH 6.0 Urine Specific [place] <=1.005 Urine Protein Negative mg/dL (NEG-TRACE) Urine Glucose (UA) Negative mg/dL (NEG) Urine Ketones (Stick) Negative mg/dL (NEG) Urine Blood Negative (NEG) Urine Nitrite Negative (NEG) Urine Bilirubin Negative (NEG) Urine Urobilinogen Dipstick 0.2 mg/dL (0.2 mg/dL) Urine Leukocyte Esterase Negative (NEG) Urine RBC Rare /HPF (0-2) Urine WBC 0 /HPF (0-4) Urine Squamous Epithelial Cells Mod /LPF Urine Bacteria 0 /HPF (0-FEW) White Blood Count 4.7 x10^3/uL (4.0-11.0) Red Blood Count 4.43 x10^6/uL (3.50-5.40) Hemoglobin 13.7 g/dL (12.0-15.5) Hematocrit 40.9 % (36.0-47.0) Mean Corpuscular Volume 92 fL (79-100) Mean Corpuscular Hemoglobin 31 pg (25-35) Mean Corpuscular Hemoglobin Concent 34 g/dL (31-37) Red Cell Distribution Width 14.4 % (11.5-14.5) Platelet Count 237 x10^3/uL (140-400) Neutrophils (%) (Auto) 74 % (31-73) Lymphocytes (%) (Auto) 22 % (24-48) Monocytes (%) (Auto) 3 % (0-9) Eosinophils (%) (Auto) 0 % (0-3) Basophils (%) (Auto) 0 % (0-3) Neutrophils # (Auto) 3.5 x10^3uL (1.8-7.7) Lymphocytes # (Auto) 1.0 x10^3/uL (1.0-4.8) Monocytes # (Auto) 0.2 x10^3/uL (0.0-1.1) Eosinophils # (Auto) 0.0 x10^3/uL (0.0-0.7) Basophils # (Auto) 0.0 x10^3/uL (0.0-0.2) Sodium Level 140 mmol/L (136-145) Potassium Level 4.2 mmol/L (3.5-5.1) Chloride Level 100 mmol/L (98-107) Carbon Dioxide Level 33 mmol/L (21-32) Anion Gap 7 (6-14) Blood Urea Nitrogen 15 mg/dL (7-20) Creatinine 0.8 mg/dL (0.6-1.0) Estimated GFR (Cockcroft-Gault) 85.1 Glucose Level 137 mg/dL (70-99) Calcium Level 9.5 mg/dL (8.5-10.1) Medications Current Medications Albuterol/ Ipratropium (Duoneb) 3 ml 1X ONCE NEB Last administered on at 09:32; Start 07/17/18 at 09:15; Stop 07/17/18 at 09:16; Status DC Albuterol Sulfate (Ventolin Neb Soln) 2.5 mg 1X ONCE NEB Last administered on 07/17/18at 09:32; Start 07/17/18 at 09:15; Stop 07/17/18 at 09:16; Status DC Albuterol Sulfate (Ventolin Neb Soln) 10 mg 1X ONCE CONT NEB Last administered on 07/17/18at 11:20; Start 07/17/18 at 11:00; Stop 07/17/18 at 11:01 ; Status DC Methylprednisolone Sodium Succinate (SOLU-Medrol 125MG VIAL) 125 mg 1X ONCE IV Last administered on 07/17/18at 11:00; Start 07/17/18 at 11:00; Stop 07/17/18 at 11:01; Status DC Ondansetron HCl (Zofran) 4 mg PRN Q8HRS PRN IV NAUSEA/VOMITING; Start 07/17/18 at 13:00; Stop 07/18/18 at 12:59 Acetaminophen (Tylenol) 650 mg PRN Q4HRS PRN PO FEVER; Start 07/17/18 at 13:00 ; Stop 07/18/18 at 12:59 Levofloxacin/ Dextrose 150 ml @ 100 mls/hr 1X ONCE IV Last administered on 02/25at 15:08; Start 07/17/18 at 14:15; Stop 07/17/18 at 15:44; Status DC Methylprednisolone Sodium Succinate (SOLU-Medrol 40MG VIAL) 40 mg Q8HRS IV Last administered on 07/18/18at 05:55; Start 07/17/18 at 15:30 Albuterol/ Ipratropium (Duoneb) 3 ml RTQID NEB Last administered on 07/18/18at 07:32; Start 07/17/18 at 16:00 Albuterol Sulfate (Ventolin Neb Soln) 2.5 mg PRN Q4HRS PRN NEB WHEEZING; Start 07/17/18 at 15:30 Enoxaparin Sodium (Lovenox 40mg Syringe) 40 mg Q24H SQ Last administered on 02/25at 17:11; Start 07/17/18 at 16:00 Amlodipine Besylate (Norvasc) 10 mg DAILY PO ; Start 07/17/18 at 16:00 Acetaminophen/ Hydrocodone Bitart (Lortab 5/325) 1 tab PRN Q4HRS PRN PO MODERATE PAIN; Start 07/17/18 at 15:15 Losartan Potassium (Cozaar) 50 mg DAILY PO ; Start 07/17/18 at 16:00 Metoprolol Succinate (Toprol Xl) 25 mg DAILY PO ; Start 07/17/18 at 16:00 Pantoprazole Sodium (Protonix) 40 mg DAILYAC PO ; Start 07/17/18 at 16:30 Potassium Chloride (Klor-Con) 20 meq DAILYWBKFT PO ; Start 07/18/18 at 08:00 Diazepam (Valium) 5 mg PRN QHS PRN PO ANXIETY Last administered on 07/18/18at 00 :57; Start 07/17/18 at 15:15 Vitamin D (Vitamin D3) 1,000 unit DAILY PO ; Start 07/18/18 at 09:00 Guaifenesin (Robitussin Dm) 10 ml PRN Q6HRS PRN PO COUGH; Start 07/17/18 at 15: 15 Acetaminophen (Tylenol) 650 mg PRN Q6HRS PRN PO MILD PAIN / TEMP; Start at 15:15 Magnesium Hydroxide (Milk Of Magnesia) 2,400 mg PRN DAILY PRN PO CONSTIPATION; Start 07/17/18 at 15:15 Levofloxacin (Levaquin) 500 mg DAILY06 PO ; Start 07/17/18 at 16:00 Pharmacy Consult (C.diff Med Screen By Rx) 1 each 1X ONCE MC ; Start 07/17/18 at 18:15; Stop 07/17/18 at 18:20; Status DC Pharmacy Consult (C.diff Med Screen By Rx) 1 each PRN 1X PRN MC PER PHARMACY; Start 07/18/18 at 09:00; Stop 07/18/18 at 09:01; Status DC Active Scripts Active Reported Benzonatate 100 Mg Capsule 1 Cap PO BID Prednisone (Prednisone) 10 Mg Tablet 30 Mg PO DAILY 5 Days Doxycycline Hyclate 100 Mg Capsule 1 Cap PO BID One Daily Complete (Multivitamin With Minerals) 1 Each Tablet 1 Each PO DAILY Calcium (Calcium Carbonate) 600 Mg Tablet 600 Mg PO DAILY Aspirin 325 Mg Tablet 1 Tab PO DAILY Biotin 2,500 Mcg Capsule 5,000 Mcg PO DAILY Nexium Capsule (Esomeprazole Magnesium) 40 Mg Capsule.dr 40 Mg PO DAILY Amlodipine Besylate 5 Mg Tablet 10 Mg PO DAILY Crestor (Rosuvastatin Calcium) 10 Mg Tablet 10 Mg PO DAILY Valium (Diazepam) 5 Mg Tablet 5 Mg PO Q 6 HRS PRN Losartan Potassium 50 Mg Tablet 50 Mg PO DAILY Toprol Xl (Metoprolol Succinate) 50 Mg Tab.er.24h 50 Mg PO DAILY 1/2 TAB Sulindac 150 Mg Tablet 150 Mg PO BID Vitamin D3 1,000 Unit Tablet (Ca Cmb No.1/Vit D3/B-6/Fa/B12) 1 Each Tablet 1 Each PO DAILY Vitals/I & O Vital Sign - Last 24 Hours 07/17/18 07/17/18 07/17/18 07/17/18 10:30 11:00 11:27 11:30 Pulse 68 70 70 B/P (MAP) 119/63 (81) 114/61 (78) 125/65 (85) Pulse Ox 94 93 94 93 O2 Delivery Nasal Cannula Nasal Cannula Nasal Cannula Nasal Cannula O2 Flow Rate 3.0 3.0 3.0 3.0 07/17/18 07/17/18 07/17/18 07/17/18 12:00 13:00 15:00 16:59 Temp 97.9 97.9 Pulse 70 80 83 Resp 19 B/P (MAP) 121/65 (83) 117/61 (79) Pulse Ox 93 95 94 O2 Delivery Nasal Cannula Nasal Cannula Nasal Cannula Nasal Cannula O2 Flow Rate 3.0 3.0 3.0 3.0 07/17/18 07/17/18 07/17/18 07/17/18 19:30 19:30 19:56 23:00 Temp 98.1 98.2 98.1 98.2 Pulse 89 79 Resp 18 18 B/P (MAP) 137/76 (96) 108/68 (81) Pulse Ox 93 96 97 O2 Delivery Nasal Cannula Nasal Cannula Nasal Cannula Nasal Cannula O2 Flow Rate 3.0 3.0 3.0 2.0 07/18/18 07/18/18 07/18/18 03:00 07:00 07:34 Temp 97.6 98.4 97.6 98.4 Pulse 94 98 Resp 18 3 B/P (MAP) 144/89 (107) 138/84 (102) Pulse Ox 95 91 94 O2 Delivery Room Air Nasal Cannula Nasal Cannula O2 Flow Rate 2.0 Intake and Output 07/17/18 07/17/18 07/18/18 14:59 22:59 06:59 Intake Total 900 ml Output Total 1300 ml Balance 900 ml -1300 ml ANNE LUNA MD Jul 18, 2018 10:17
[2018-07-18 11:00] VITALS: BP 150/81
[2018-07-18 15:00] VITALS: BP 106/71
--- NOTE | 2018-07-18 16:00 | CONS ---
DATE OF CONSULTATION: ATTENDING PHYSICIAN: Dr. Fernández. REASON FOR CONSULTATION: Dyspnea. HISTORY OF PRESENT ILLNESS: The patient is a 73-year-old who usually sees my partner, Dr. Echols. She has history of adenocarcinoma of the left upper lobe, status post radiation treatment. She also has prior history of diffuse large cell non-Hodgkin lymphoma and completed chemoradiation in 2013. The patient was brought into the hospital with 1 week history of a cough productive of clear to white sputum. She had some shortness of breath and wheezing. The patient talked to Dr. Echols who ordered outpatient doxycycline and oral prednisone and Tessalon Perles, but symptoms did not improve. As a result, she was seen in the ER, she was noted to be hypoxic on arrival at 88% saturation. Her chest x-ray did not reveal any definite infiltrates. The patient feels much better. I have been asked to see her for further evaluation. She underwent a noncontrast CT chest today, which was reviewed by me. The previously seen ground glass opacity in the right lower lobe has resolved. She has unchanged and stable left upper lobe parenchymal opacity. I have reviewed the scans as far back as 2014 and it has been not significantly changed. Her PET scan from 07/2017 did not show any hypermetabolic activity in the left upper lobe. PAST MEDICAL HISTORY: As discussed above. History of adenocarcinoma of the left upper lobe treated with radiation in 2014, history of non-Hodgkin lymphoma in 2013 treated with chemo and radiation. Other past medical history and surgical history per Dr. Fernández's note. SOCIAL HISTORY: Does not drink and does not smoke cigarettes. FAMILY HISTORY: Noncontributory to lungs. REVIEW OF SYSTEMS: Twelve-point system obtained. Pertinent positives discussed in my history of present illness, otherwise noncontributory. All systems that were negative were reviewed as well. ALLERGIES: PENICILLIN AND CODEINE. MEDICATIONS: All reviewed as listed in the [facility]AD including IV steroids, DuoNeb, and Lovenox for DVT prophylaxis. PHYSICAL EXAMINATION: VITAL SIGNS: Reviewed, stable. Pulse ox 92% on room air now. HEENT: Sclerae nonicteric. NECK: Supple. LUNGS: Clear. CARDIOVASCULAR: Regular rate and rhythm. ABDOMEN: Soft and obese. EXTREMITIES: With no pitting edema. LABORATORY DATA: Reviewed. White cell count 4.7, hemoglobin 13.7 and platelets are 237. BUN and creatinine 15 and 0.8. IMPRESSION: 1. Dyspnea with bronchospasm along with cough. This is a patient who failed outpatient oral antibiotics and oral steroids, now admitted with bronchospasm and acute bronchitis. She has no known tobacco history, no known history of asthma. Bronchospasm is probably triggered by acute bronchitis. 2. The patient with history of left upper lobe adenocarcinoma, status post radiation treatment and latest scans and PET scan showing stability with unchanged, stable left upper lobe chronic parenchymal scarring. 3. History of non-Hodgkin lymphoma treated with chemoradiation in 2013. 4. Fibromyalgia. RECOMMENDATIONS: 1. From a pulmonary standpoint, she is doing reasonably well. I will wean her off of oxygen. I will also recommend tapering off the steroids and continue with oral antibiotics. 2. Continue DuoNebs. 3. Lovenox for venous thrombosis prophylaxis. 4. Likely discharge in the next 24 hours. Discussed with the patient. KLAUDIA PLUNKETT MD DR: KISHORE/josé JOB#: [id number] / [id number]
--- NOTE | 2018-07-18 16:13 | NUR ---
SW following. Discussed with RN, pt is from home alone. Pt using O2 here but not at home. Per Pulmonary note, pt will be weaned off O2. SW will continue to follow.
[2018-07-18] MEDS: ENOXAPARIN 40 MG/0.4 ML SYRINGE. SQ SCH (16:46)
[2018-07-18 19:00] VITALS: BP 130/73
[2018-07-18] MEDS: LACTOBACILLUS RHAMNOSUS GG 1 CAPSULE. PO SCH (20:58)
[2018-07-18 23:00] VITALS: BP 125/72
[2018-07-19 03:00] VITALS: BP 121/72
[2018-07-19] MEDS: methylPREDNISolone SOD SUCC PF 40 MG/ML VIAL. IV SCH (06:05)
[2018-07-19 07:00] VITALS: BP 142/68
[2018-07-19] MEDS: IPRATRPIUM/ALBUTEROL 0.5/2.5MG 3 ML NEBU. NEB SCH (07:14)
[2018-07-19] MEDS: PANTOPRAZOLE 40 MG TABLET.DR. PO SCH (07:48)
[2018-07-19] MEDS: LACTOBACILLUS RHAMNOSUS GG 1 CAPSULE. PO SCH (08:33)
[2018-07-19] MEDS: CHOLECALCIFEROL (VITAMIN D3) 1,000 UNIT TABLET PO SCH (08:33)
[2018-07-19] MEDS: LOSARTAN POTASSIUM 50 MG TABLET. PO SCH (08:33)
[2018-07-19 08:34] VITALS: BP 142/68
[2018-07-19] MEDS: amLODIPine BESYLATE 10 MG TABLET PO SCH (08:34)
--- NOTE | 2018-07-19 09:53 | PDOC ---
PROGRESS NOTES Subjective Subjective feels better. breathing well. off of oxygen. passed ST swallow evaluation. Objective Objective Vital Signs Date Time Temp Pulse Resp B/P (MAP) Pulse Ox O2 Delivery O2 Flow Rate FiO2 07/19/18 08:34 110 142/68 07/19/18 07:15 93 Room Air 07/19/18 07:00 97.9 18 97.9 07/18/18 20:00 2.0 Intake and Output 07/19/18 06:59 Intake Total 480 ml Balance 480 ml Intake Oral 480 ml # Voids 2 Physical Exam Abdomen: Soft Heart: Regular rate, Normal S1, Normal S2 Extremities: No edema General: Alert HEENT: Atraumatic Lungs: Clear to auscultation Neuro: Normal speech Psych/Mental Status: Mental status NL Skin: No rashes Assessment Assessment 1. Acute bronchitis with bronchospasm. She failed outpatient oral antibiotics and oral prednisone. improved 2. Hypoxia noted in the Emergency Room, the oxygen saturation is dropping 88% on room air with walking. She had dyspnea on exertion also then. hypoxia resolved 3. 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 4. History of non-Hodgkin's lymphoma treated with chemo and radiation therapy in 2013. 5. Hypertension. 6. Hyperlipidemia. 7. Fibromyalgia. solid food and pill dysphagia Plan Plan of Care switch to prednisone taper levaquin out patient egd dismiss today Comment Review of Relevant I have reviewed the following items bernard (where applicable) has been applied. Labs Laboratory Tests Test 07/17/18 16:45 07/18/18 05:05 Urine Collection Type Unknown Urine Color Yellow Urine Clarity Clear Urine pH 6.0 Urine Specific Norris <=1.005 Urine Protein Negative mg/dL (NEG-TRACE) Urine Glucose (UA) Negative mg/dL (NEG) Urine Ketones (Stick) Negative mg/dL (NEG) Urine Blood Negative (NEG) Urine Nitrite Negative (NEG) Urine Bilirubin Negative (NEG) Urine Urobilinogen Dipstick 0.2 mg/dL (0.2 mg/dL) Urine Leukocyte Esterase Negative (NEG) Urine RBC Rare /HPF (0-2) Urine WBC 0 /HPF (0-4) Urine Squamous Epithelial Cells Mod /LPF Urine Bacteria 0 /HPF (0-FEW) White Blood Count 4.7 x10^3/uL (4.0-11.0) Red Blood Count 4.43 x10^6/uL (3.50-5.40) Hemoglobin 13.7 g/dL (12.0-15.5) Hematocrit 40.9 % (36.0-47.0) Mean Corpuscular Volume 92 fL (79-100) Mean Corpuscular Hemoglobin 31 pg (25-35) Mean Corpuscular Hemoglobin Concent 34 g/dL (31-37) Red Cell Distribution Width 14.4 % (11.5-14.5) Platelet Count 237 x10^3/uL (140-400) Neutrophils (%) (Auto) 74 % (31-73) Lymphocytes (%) (Auto) 22 % (24-48) Monocytes (%) (Auto) 3 % (0-9) Eosinophils (%) (Auto) 0 % (0-3) Basophils (%) (Auto) 0 % (0-3) Neutrophils # (Auto) 3.5 x10^3uL (1.8-7.7) Lymphocytes # (Auto) 1.0 x10^3/uL (1.0-4.8) Monocytes # (Auto) 0.2 x10^3/uL (0.0-1.1) Eosinophils # (Auto) 0.0 x10^3/uL (0.0-0.7) Basophils # (Auto) 0.0 x10^3/uL (0.0-0.2) Sodium Level 140 mmol/L (136-145) Potassium Level 4.2 mmol/L (3.5-5.1) Chloride Level 100 mmol/L (98-107) Carbon Dioxide Level 33 mmol/L (21-32) Anion Gap 7 (6-14) Blood Urea Nitrogen 15 mg/dL (7-20) Creatinine 0.8 mg/dL (0.6-1.0) Estimated GFR (Cockcroft-Gault) 85.1 Glucose Level 137 mg/dL (70-99) Calcium Level 9.5 mg/dL (8.5-10.1) Medications Current Medications Albuterol/ Ipratropium (Duoneb) 3 ml 1X ONCE NEB Last administered on at 09:32; Start 07/17/18 at 09:15; Stop 07/17/18 at 09:16; Status DC Albuterol Sulfate (Ventolin Neb Soln) 2.5 mg 1X ONCE NEB Last administered on 07/17/18at 09:32; Start 07/17/18 at 09:15; Stop 07/17/18 at 09:16; Status DC Albuterol Sulfate (Ventolin Neb Soln) 10 mg 1X ONCE CONT NEB Last administered on 07/17/18at 11:20; Start 07/17/18 at 11:00; Stop 07/17/18 at 11:01 ; Status DC Methylprednisolone Sodium Succinate (SOLU-Medrol 125MG VIAL) 125 mg 1X ONCE IV Last administered on 07/17/18at 11:00; Start 07/17/18 at 11:00; Stop 07/17/18 at 11:01; Status DC Ondansetron HCl (Zofran) 4 mg PRN Q8HRS PRN IV NAUSEA/VOMITING; Start 07/17/18 at 13:00; Stop 07/18/18 at 12:59; Status DC Acetaminophen (Tylenol) 650 mg PRN Q4HRS PRN PO FEVER; Start 07/17/18 at 13:00 ; Stop 07/18/18 at 12:03; Status DC Levofloxacin/ Dextrose 150 ml @ 100 mls/hr 1X ONCE IV Last administered on 02/25at 15:08; Start 07/17/18 at 14:15; Stop 07/17/18 at 15:44; Status DC Methylprednisolone Sodium Succinate (SOLU-Medrol 40MG VIAL) 40 mg Q8HRS IV Last administered on 07/19/18at 06:05; Start 07/17/18 at 15:30 Albuterol/ Ipratropium (Duoneb) 3 ml RTQID NEB Last administered on 07/19/18at 07:14; Start 07/17/18 at 16:00 Albuterol Sulfate (Ventolin Neb Soln) 2.5 mg PRN Q4HRS PRN NEB WHEEZING; Start 07/17/18 at 15:30 Enoxaparin Sodium (Lovenox 40mg Syringe) 40 mg Q24H SQ Last administered on 03/28at 16:46; Start 07/17/18 at 16:00 Amlodipine Besylate (Norvasc) 10 mg DAILY PO Last administered on 07/19/18at 08: 34; Start 07/17/18 at 16:00 Acetaminophen/ Hydrocodone Bitart (Lortab 5/325) 1 tab PRN Q4HRS PRN PO MODERATE PAIN; Start 07/17/18 at 15:15 Losartan Potassium (Cozaar) 50 mg DAILY PO Last administered on 07/19/18at 08:33 ; Start 07/17/18 at 16:00 Metoprolol Succinate (Toprol Xl) 25 mg DAILY PO ; Start 07/17/18 at 16:00; Stop 07/18/18 at 10:20; Status DC Pantoprazole Sodium (Protonix) 40 mg DAILYAC PO Last administered on 07/19/18at 07:48; Start 07/17/18 at 16:30 Potassium Chloride (Klor-Con) 20 meq DAILYWBKFT PO ; Start 07/18/18 at 08:00; Stop 07/18/18 at 10:20; Status DC Diazepam (Valium) 5 mg PRN QHS PRN PO ANXIETY Last administered on 07/18/18at 00 :57; Start 07/17/18 at 15:15 Vitamin D (Vitamin D3) 1,000 unit DAILY PO Last administered on 07/19/18at 08:33 ; Start 07/18/18 at 09:00 Guaifenesin (Robitussin Dm) 10 ml PRN Q6HRS PRN PO COUGH; Start 07/17/18 at 15: 15 Acetaminophen (Tylenol) 650 mg PRN Q6HRS PRN PO MILD PAIN / TEMP; Start at 15:15 Magnesium Hydroxide (Milk Of Magnesia) 2,400 mg PRN DAILY PRN PO CONSTIPATION; Start 07/17/18 at 15:15 Levofloxacin (Levaquin) 500 mg DAILY06 PO Last administered on 07/19/18at 06:03 ; Start 07/17/18 at 16:00 Pharmacy Consult (C.diff Med Screen By Rx) 1 each 1X ONCE MC ; Start 07/17/18 at 18:15; Stop 07/17/18 at 18:20; Status DC Pharmacy Consult (C.diff Med Screen By Rx) 1 each PRN 1X PRN [facility] PER PHARMACY; Start 07/18/18 at 09:00; Stop 07/18/18 at 09:01; Status DC Guaifenesin (Mucinex) 1,200 mg BID PO Last administered on 07/19/18at 08:34; Start 07/18/18 at 11:00 Lactobacillus Rhamnosus (Culturelle) 1 cap BID PO Last administered on at 08:33; Start 07/18/18 at 21:00 Active Scripts Active Reported Benzonatate 100 Mg Capsule 1 Cap PO BID Prednisone (Prednisone) 10 Mg Tablet 30 Mg PO DAILY 5 Days Doxycycline Hyclate 100 Mg Capsule 1 Cap PO BID One Daily Complete (Multivitamin With Minerals) 1 Each Tablet 1 Each PO DAILY Calcium (Calcium Carbonate) 600 Mg Tablet 600 Mg PO DAILY Aspirin 325 Mg Tablet 1 Tab PO DAILY Biotin 2,500 Mcg Capsule 5,000 Mcg PO DAILY Nexium Capsule (Esomeprazole Magnesium) 40 Mg Capsule.dr 40 Mg PO DAILY Amlodipine Besylate 5 Mg Tablet 10 Mg PO DAILY Crestor (Rosuvastatin Calcium) 10 Mg Tablet 10 Mg PO DAILY Valium (Diazepam) 5 Mg Tablet 5 Mg PO Q 6 HRS PRN Losartan Potassium 50 Mg Tablet 50 Mg PO DAILY Toprol Xl (Metoprolol Succinate) 50 Mg Tab.er.24h 50 Mg PO DAILY 1/2 TAB Sulindac 150 Mg Tablet 150 Mg PO BID Vitamin D3 1,000 Unit Tablet (Ca Cmb No.1/Vit D3/B-6/Fa/B12) 1 Each Tablet 1 Each PO DAILY Vitals/I & O Vital Sign - Last 24 Hours 07/18/18 07/18/18 07/18/18 07/18/18 11:00 15:00 19:00 19:55 Temp 98.1 97.9 97.7 98.1 97.9 97.7 Pulse 107 100 96 Resp 18 B/P (MAP) 150/81 (104) 106/71 (83) 130/73 (92) Pulse Ox 92 91 97 93 O2 Delivery Room Air Room Air Room Air Room Air 07/18/18 07/18/18 07/18/18 07/19/18 20:00 20:00 23:00 03:00 Temp 98.2 98.1 98.2 98.1 Pulse 89 78 Resp 18 18 B/P (MAP) 125/72 (89) 121/72 (88) Pulse Ox 92 93 O2 Delivery Nasal Cannula Nasal Cannula Room Air Room Air O2 Flow Rate 2.0 2.0 07/19/18 07/19/18 07/19/18 07/19/18 07:00 07:15 08:33 08:34 Temp 97.9 97.9 Pulse 119 110 110 Resp 18 B/P (MAP) 142/68 (92) 142/68 142/68 Pulse Ox 92 93 O2 Delivery Room Air Room Air Intake and Output 07/18/18 07/18/18 07/19/18 14:59 22:59 06:59 Intake Total 240 ml 240 ml Balance 240 ml 240 ml ANNE LUNA MD Jul 19, 2018 09:53
[2018-07-19] MEDS ORDERED: LEVO500T59 PO (10:01)
[2018-07-19] MEDS ORDERED: GUAI600T47 PO (10:01)
[2018-07-19] MEDS ORDERED: DIAZ5TAB4 PO (10:01)
[2018-07-19] MEDS ORDERED: PRED20TA PO (10:01)
--- NOTE | 2018-07-19 10:02 | DISCH ---
DISCHARGE INSTRUCTIONS Condition on Discharge Condition on Discharge: Stable Activity After Discharge Activity Instructions for Disc: Activity as tolerated, Avoid exertion Bathing Instructions: Shower-keep dressing dry Lifting Instructions after Dis: No heavy lifting, No pulling or pushing Exercise Instruction after Dis: Walk 30 min, 3 x per week Driving Instructions after Dis: Do not drive today Weight Bearing Status after Di: As tolerated Diet after Discharge Diet after Discharge: Regular Wound Incision Care Wound/Incision Care: Other, see below Contacting the DR. after DC Call your doctor for: If your condition worsens Follow-Up Follow up with: dr. luna next week Follow Up With: dr. tucker in 2 weeks . will need out patient EGD ANNE LUNA MD Jul 19, 2018 10:02
--- NOTE | 2018-07-19 10:06 | PDOC ---
Provider Note Provider Note discharge summary dictated # [id number] ANNE LUNA MD Jul 19, 2018 10:06
--- NOTE | 2018-07-19 10:41 | NUR ---
Discharge instructions and belongings reviewed with patient, verbalized understanding. Patient escorted out of hospital via ambulation by this nurse, Cristobal HARRINGTON.
--- NOTE | 2018-07-19 17:54 | DS ---
DATE OF DISCHARGE: 07/19/2018 CONSULTANTS: Dr. Meier, and Dr. Rosales. FINAL DIAGNOSES: 1. Acute bronchitis with bronchospasm. 2. Acute hypoxic respiratory failure. 3. Oropharyngeal dysphagia. 4. 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 5. History of non-Hodgkin's lymphoma treated with chemo and radiation therapy in 2013. 6. Hypertension. 7. Hyperlipidemia. 8. Fibromyalgia. HOSPITAL COURSE: The patient is a 73-year-old -[place] female with history of adenocarcinoma of the right upper lobe of the lung treated with chemoradiation therapy in 2014, non-Hodgkin's lymphoma treated with chemo and radiation therapy in 2013, noted a 1-week history of cough productive of clear sputum, shortness of breath and wheezing. She contacted her plush weaver, Dr. Echols and prescribed doxycycline 100 mg b.i.d., prednisone 30 mg daily for 5 days and Tessalon Perles 100 mg b.i.d., but her symptoms worsened and she was dyspneic on exertion, went to the [facility] Emergency Room 07/17/2018 where she was noted to be hypoxic with oxygen saturation dropping to 88% with walking in the Emergency Room on room air. Chest x-ray showed no infiltrate and was subsequently admitted to the hospital as she failed outpatient therapy. In the hospital, she was started on IV Solu-Medrol, oral Levaquin, nebulizer treatments q.i.d. and every 4 hours p.r.n. and oxygen. The patient's CAT scan of the chest was normal without any infiltrate or tumor. She was seen in consultation by Dr. Meier for Pulmonary and Dr. Rosales for GI. Speech therapist to evaluate her swallow, she had some solid food and pill dysphagia. She passed her swallow evaluation and Dr. Rosales saw the patient and felt that she might have a stricture from radiation and recommended an outpatient EGD to further evaluate her pill and solid food dysphagia. The patient was eating and drinking okay and with her wheezing, her metoprolol was discontinued. She was started on Mucinex 1200 mg p.o. b.i.d. and felt much better and then she was weaned off oxygen, oxygen saturation 93% on room air at rest. She will be dismissed to home on amlodipine 10 mg every day, Crestor 10 mg every day, Agate 5/325 mg 1 every 4 hours p.r.n., losartan 50 mg every day, Nexium 40 mg everyday, sulindac 150 mg b.i.d., Valium 5 mg at bedtime p.r.n., vitamin D 1000 units every day and also will be dismissed on Levaquin 500 mg 1 every day for 4 more days, 4 tablets, no refill, prednisone taper 20 mg tablets 10 tablets, no refill, should take 40 mg daily for 2 days, 30 mg daily for 2 days, 20 mg daily for 2 days, and 10 mg daily for 2 days. She will take Mucinex 1200 mg b.i.d. for another 4 days and make an appointment to see Dr. Fernández in the office in 1 week and make an appointment to see Dr. Rosales in the office in 2 weeks, so we can schedule an EGD as an outpatient and follow up with her and we also discontinued her potassium chloride. ANNE FERNÁNDEZ MD DR: ALBAN/josé JOB#: [id number] / [id number]
[2018-07-20] MEDS ORDERED: predniSONE 10 MG TABLET PO SCH (08:00)
[2018-08-23] MEDS ORDERED: ALBU2.5V8 INH (15:58)
== END 2018-07-19 11:01 | disposition home or self-care (01) | DRG 202 ==
LOC: ER 09:04 → 4 NORTH 13:15
PROVIDERS: ADMIT Internal Medicine; ATTEND Internal Medicine
DX: J20.9 Acute bronchitis, unspecified (principal); J96.01 Acute respiratory failure with hypoxia; K21.9 Gastro-esophageal reflux disease without esophagitis; I10 Essential (primary) hypertension; E78.00 Pure hypercholesterolemia, unspecified; E78.5 Hyperlipidemia, unspecified; M79.7 Fibromyalgia; K57.90 Diverticulosis of intestine, part unspecified, without perforation or abscess without bleeding; K76.89 Other specified diseases of liver; R13.12 Dysphagia, oropharyngeal phase; Z86.010 Personal history of colon polyps; Z79.899 Other long term (current) drug therapy; Z90.710 Acquired absence of both cervix and uterus; Z98.49 Cataract extraction status, unspecified eye; Z85.72 Personal history of non-Hodgkin lymphomas; Z92.3 Personal history of irradiation; Z85.118 Personal history of other malignant neoplasm of bronchus and lung; Z92.21 Personal history of antineoplastic chemotherapy; Z79.82 Long term (current) use of aspirin; Z80.3 Family history of malignant neoplasm of breast
CPT/HCPCS: 36415; 71045; 71250; 80048; 80053; 81001; 83880; 84484; 85025; 85379; 87804; 93005; 94618; 94640; 94644; 96374; J1650; J1956; J2920; J2930; J7613; J7620; 92610; 99285-25

== ENCOUNTER → 2018-08-15 | Outpatient (CLI) | payer MEDICARE ==
[2018-07-19 08:34] VITALS: BP 142/68
[~2018-08-15] MED LIST changes: +ALBU2.5V8 INH; +BENZ-8 PO; +CALC600T4 PO; +CONTRAST GIVEN. MC PRN; +DIAZ5TAB4 PO; +DOXY100C2 PO; +GUAI600T47 PO; +IOHEXOL 240 MG/ML 50ML VIAL. PO ONE; +IOHEXOL 300 MG/ML 100ML VIAL. IV ONE; +LEVO500T59 PO; +MULT-317 PO; +PRED-220 PO; +PRED20TA PO
--- NOTE | 2018-08-15 11:23 | RAD ---
PQRS Compliance Statement: One or more of the following individualized dose reduction techniques were utilized for this examination: 1. Automated exposure control 2. Adjustment of the mA and/or kV according to patient size 3. Use of iterative reconstruction technique CT chest, abdomen and pelvis with contrast 08/15/2018 INDICATION: Lung cancer; restaging. COMPARISON: CT chest, May 02, 2018, CT chest, abdomen and pelvis February 14, 2018 TECHNIQUE: Multiple axial CT images of the chest, abdomen and pelvis were obtained after the intravenous administration of 75 cc Omnipaque 300. Coronal and sagittal reformats are provided. FINDINGS: CHEST: The thyroid gland is normal in appearance. There are no pathologically enlarged axillary, mediastinal or hilar lymph nodes. Heart size is within normal limits. There is no pericardial effusion. Thoracic aorta is ectatic measuring 4.1 cm, stable. Heart size within normal limits. Coronary artery vascular calcific effusions are present. There is no pericardial effusion. Stable appearance of a small area of groundglass changes in the medial right costophrenic angle with a systemic artery supplying this region suggestive of an area of pulmonary sequestration. There is stable left lingular airspace consolidation suggestive of posttreatment related changes. No new solid noncalcified pulmonary nodule is identified. There are no pleural effusions. No pulmonary vascular congestion or pneumothorax. Abdomen/pelvis: No new or enlarging hepatic lesions are identified. Previously described simple cysts appear stable. Spleen is nonenlarged. Adrenal glands are normal in appearance. Pancreas is normal in appearance. Gallbladder is present. No intrahepatic or extrahepatic biliary ductal dilatation is identified. Abdominal aorta is normal in course and caliber. No pathologically enlarged lymph nodes are identified in the abdomen and pelvis. There is no free fluid or free intraperitoneal air. There is mild colonic diverticulosis. There is a lipoma of the ileocecal valve. Oral contrast was administered. Opacified bowel loops demonstrate normal mucosal fold pattern. Small and large bowel are normal in caliber. There is no evidence for bowel obstruction. There are no pericolonic inflammatory changes. Appendix is not visualized. No pericecal inflammatory changes are identified. The kidneys enhance symmetrically. There is no suspicious renal mass. There is no hydronephrosis. There are no suspected calculi within the kidneys, ureters or urinary bladder. Urinary bladder is within normal limits given degree of distention. No suspicious pelvic mass is identified. No suspicious osseous abnormality is identified. There is minimal anterolisthesis of L4 on L5. Moderate degenerative disc disease identified at L4-L5 and L5-S1 vacuum disc phenomena. IMPRESSION: 1. Stable left suprahilar focal wedge-shaped airspace consolidation which most favors posttreatment related changes. No new or enlarging solid noncalcified pulmonary nodule is identified. 2. Similar appearance of medial right lower lobe pulmonary sequestration. 3. Similar appearance of the abdomen and pelvis without evidence for new or enlarging soft tissue mass. Electronically signed by: Salena Strange MD (08/15/2018 11:20 AM) [id number]
== END | disposition home or self-care (01) ==
LOC: CT 09:15
PROVIDERS: ATTEND Internal Medicine Hematology & Oncology
DX: C34.92 Malignant neoplasm of unspecified part of left bronchus or lung (principal); K57.30 Diverticulosis of large intestine without perforation or abscess without bleeding; M43.16 Spondylolisthesis, lumbar region; K76.89 Other specified diseases of liver; M51.37 Other intervertebral disc degeneration, lumbosacral region; I77.810 Thoracic aortic ectasia; D17.79 Benign lipomatous neoplasm of other sites
CPT/HCPCS: 71260; 74177; Q9966; Q9967

== ENCOUNTER → 2019-03-07 | Outpatient (CLI) | payer MEDICARE ==
[~2019-03-07] MED LIST changes: -MAGN400T3 PO; +MAGN400T5 PO
--- NOTE | 2019-03-09 08:31 | RAD ---
CT CHEST ABD PELVIS W/CONTRAST Indication: Lymphoma Technique: Postcontrast CT imaging was performed of the chest, abdomen, pelvis, multiplanar reconstruction images submitted. Oral contrast was also given. One or more of the following individualized dose reduction techniques were utilized for this examination: 1. Automated exposure control 2. Adjustment of the mA and/or kV according to patient size 3. Use of iterative reconstruction technique. Comparison: August 15, 2018; PET/CT August 05, 2017 CHEST: Findings: There is a right submental node in the neck about 0.7 cm short axis dimension slightly larger than previous PET/CT when measured about 0.5 cm short axis dimension, this area not included on previous chest CT. Noncalcified left upper lobe density about 3.2 cm transverse by 3.5 cm AP by 1.1 cm CC is similar in appearance compared with August CT exam. No new suspicious pulmonary nodularity is identified. There is no new pericardial or pleural fluid, new infiltrate, pneumothorax. Ascending thoracic aorta is dilated about 4.1 cm as seen previously, no intraluminal flap. There is again likely small area of likely sequestration of the medial right lower lobe. There is coronary calcification. IMPRESSION: 1. Left upper lobe density is similar in appearance, no new suspicious pulmonary nodularity or new significantly enlarged nodes of the chest. Not included on previous chest CT exam, there is a right submental node which measures slightly larger than previous PET/CT July 2017 although not considered significantly enlarged based on short axis dimension, attention on follow-up advised. 2. There is stable dilatation of the ascending thoracic aorta. 3. There is coronary calcification. Abdomen pelvis FINDINGS: There are multiple hypodense foci of the liver, largest with density characteristics of cysts, smaller foci difficult to accurately characterize although size similar. There is again visualization of pancreatic duct. No new abnormality is identified of the pancreas or spleen. Both kidneys enhance, no hydronephrosis or focal lesion. There is no adrenal nodularity. No new significantly enlarged nodes are identified of the abdomen or pelvis. Bowel is not dilated. There is no free fluid or free air. There is lipomatous hypertrophy of the ileocecal valve. There is multilevel lumbar facet hypertrophic change, grade 1 anterior spondylolisthesis L4-5 and to lesser degree at L5-S1. There is degree of lateral recess stenosis greatest at L4-5, also at least mild spinal stenosis L3-4. There is degenerative disc disease greatest L4-5 and L5-S1. There is lumbar dextroscoliosis. IMPRESSION: 1. No new lymphadenopathy is identified of the abdomen or pelvis. 2. There are again hypodense foci of the liver, largest compatible with cysts. Electronically signed by: Bao Zaidi MD (03/09/2019 8:28 AM) [id number]
== END | disposition home or self-care (01) ==
LOC: CT 09:17
PROVIDERS: ATTEND Internal Medicine Hematology & Oncology
DX: I77.810 Thoracic aortic ectasia (principal); I25.10 Atherosclerotic heart disease of native coronary artery without angina pectoris; K63.89 Other specified diseases of intestine; C83.39 Diffuse large B-cell lymphoma, extranodal and solid organ sites; M48.061 Spinal stenosis, lumbar region without neurogenic claudication; M51.37 Other intervertebral disc degeneration, lumbosacral region; M43.17 Spondylolisthesis, lumbosacral region; M41.86 Other forms of scoliosis, lumbar region
CPT/HCPCS: 71260; 74177; Q9966; Q9967

== ENCOUNTER → 2019-08-22 | Outpatient (CLI) | payer MEDICARE ==
[~2019-08-22] MED LIST changes: +BUPIVACAINE MPF 0.25% 10 ML VIAL. ONE; +CALC600T23 PO; -CONTRAST GIVEN. MC PRN; +IOHEXOL 180 MG/ML 10 ML VIAL. ONE; -IOHEXOL 240 MG/ML 50ML VIAL. PO ONE; -IOHEXOL 300 MG/ML 100ML VIAL. IV ONE; -MECL12.52 PO; +MECL12.573 PO; +METO-239 PO; +OMEG10005 PO; +POTA20TA4 PO; -POTA20TA82 PO; +areds EACHEYE; +methylPREDNISolone ACETATE 80 MG/ML VIAL. ONE
--- NOTE | 2019-08-22 12:26 | PAIN ---
DATE OF SERVICE: 08/22/2019 INITIAL CONSULTATION FOR PAIN CLINIC CHIEF COMPLAINT: Left hip and lower extremity pain. HISTORY OF PRESENT ILLNESS: The patient is a 74-year-old female who presents with history of pain in the left hip for about 2-3 months. The patient reports it has been increasing with walking, standing, putting any weight on her left leg, especially if she is climbing upstairs or stepping up on a curb. The patient reports she has the significant knee pain as well as low back pain, but her left hip is her primary complaint. The patient has seen her orthopedic surgeon with x-rays showing only some mild degenerative changes in the left hip joint with severe right hip joint osteoarthritis, and the left hip joint grossly preserved without significant proliferative or degenerative change, but still significant pain. The patient did have a greater trochanter injection with her orthopedist on the left, which was not significantly helpful. The patient has tried trigger point injections in the past, physical therapy, exercise. Exercise and injections have helped but the therapy has not. The patient reports she is still doing some stretching at home, but is finding it more difficult to walk with pain in the left hip, posterior gluteus as well as radiating into the left groin, significantly into the anterior medial thigh with walking and standing. The patient reports it does not awaken her from sleep at night, it is much better with sitting or lying down, standing and walking exacerbate it significantly. The patient does have some urinary incontinence, but does not relate it to the pain. She has had significant difficulty walking, she is using a cane in her right hand currently. The patient describes the pain as sharp and throbbing, shooting and stabbing into the left groin, intermittent in intensity and only with walking, standing, putting weightbearing on the left leg. PAST MEDICAL HISTORY: Significant for hypertension, arthritis, lung cancer in remission since 2016, status post radiation and chemotherapy, gastroesophageal reflux. PREVIOUS SURGERY: Include bilateral cataract extraction and a total hysterectomy. CURRENT MEDICATIONS: Include omeprazole, inhalers, hydrocodone, diazepam, metoprolol, sulindac, losartan, vitamins, omega 3, amlodipine, and rosuvastatin. ALLERGIES: THE PATIENT IS ALLERGIC TO PENICILLIN, AND CODEINE. FAMILY HISTORY: Significant for no major medical conditions or illnesses that she lists. SOCIAL HISTORY: The patient does not drink alcohol, does not smoke. Denies any illegal, illicit or recreational drugs. She is , lives with her spouse, lives locally in [place], [place] and is currently retired. REVIEW OF SYSTEMS: The patient's review of systems is positive for those items mentioned in history of present illness. All systems reviewed and otherwise negative. It is complete, full and well documented on the patient's chart. PHYSICAL EXAMINATION: VITAL SIGNS: The patient's blood pressure is 154/94, pulse 76, respirations 16, temperature 98.7 degrees Fahrenheit, height is 5 feet 1 inch, weight is 200 pounds. GENERAL: The patient is awake, alert, oriented, appropriate, very pleasant demeanor. HEENT: Exam shows normocephalic, atraumatic. Extraocular movements are intact and symmetrical. Oral cavity shows mucous membranes moist and pink. Dentition is intact. NECK: Shows anterior throat supple without palpable lymphadenopathy noted. Swallow reflex symmetrical. CHEST: Shows normal on inspection. Breath sounds are clear bilaterally. HEART: Shows S1, S2 clear. No murmurs auscultated. ABDOMEN: Soft, nontender, nondistended, obese. No organomegaly is noted. No rebound or guarding demonstrated. BACK: Shows spine grossly in the midline, normal-appearing cervical lordotic curvature, thoracic kyphotic curvature is slightly exaggerated and some minor flattening of lumbar lordotic curvature. Paraspinous muscle shows symmetrical on inspection in the lumbar distribution with palpation. Lumbar paraspinous muscle shows mild tenderness in the inferior aspect of the paraspinous musculature bilaterally, but only diffusely without radiation, without atrophy or hypertrophy. No tenderness over the spinous processes, sacrum or sacroiliac regions. The patient has good rotational motion of lumbar spine, both laterally greater than 10 degrees right and left as well as extension greater than 10 degrees, forward flexion 45 degrees without significant pain reported. EXTREMITIES: Lower extremities show deep tendon reflexes 1+ in the patellar and tendo calcaneus tendons are symmetrical. Motor exam is approximately 4 on a scale of 5 on the left and 5/5 on the right with dorsiflexion, extension, quadriceps and hamstring flexion and significant tenderness exacerbated with hip flexion on the left side, but not the right, but still intact with strength at about 4 on a scale of 5 bilaterally. The patient does have a positive Yoel's maneuver on the left with external rotation of the left hip and lateral displacement, significant tenderness in the hip and the posterior gluteus as well as in the groin with this maneuver. Right side is negative. The patient's lower extremities warm and dry, equal in color and appearance. The patient is standing, but has difficulty placing all of her weight on her left leg as it causes significant pain in the hip as well as the groin on the left only. Right side is nontender with weightbearing with one leg. The patient is walking with a significant limping gait, favors the left lower extremity significantly using a cane in her right hand. SKIN: Shows warm and dry, good turgor. No edema. No sores, rashes or bruising throughout. IMPRESSION: 1. This is a 74-year-old female with approximate 2-3 month history of increasing pain in left hip and groin and lower extremity. 2. Plain films of left and right hips as noted. 3. Arthritis. 4. Hypertension. 5. History of lung cancer. PLAN: Options were discussed with the patient including conservative medical managements, continued physical therapies, interventional techniques. She would like to pursue interventional techniques. We discussed a left intra-articular hip joint injection using description as well as anatomical models to describe the procedure. The patient would like to proceed. Risks were then discussed including, but not limited to bleeding, infection, possibility of intravascular injection sequelae, spread of local anesthetic and numbness, side effects of steroid medication and poor results regarding pain control. The patient understands and wished to proceed. The patient will return to clinic in approximately 4 weeks for followup. She was counseled as to return appointment, activity level and side effects to be aware of. DIAGNOSIS: Left hip joint pain with primary osteoarthritis of left hip joint. PROCEDURE: Left intraarticular hip joint injection using C-arm fluoroscopic guidance under sterile prep and drape using local anesthetic. MEDICATION INJECTED: A total of 80 mg Depo-Medrol plus 3 mL of 0.25% bupivacaine as well as 3 mL of contrast. CONDITION AT DISCHARGE: Stable. The patient tolerated the procedure well, had no complications. NANCY GROSS MD DR: STEPHENIE/josé JOB#: [id number] / [id number] ANNE Edmonds MD
== END ==
LOC: PNCL 10:18
PROVIDERS: ATTEND Anesthesiology
DX: M16.12 Unilateral primary osteoarthritis, left hip (principal); I10 Essential (primary) hypertension; K21.9 Gastro-esophageal reflux disease without esophagitis; Z87.39 Personal history of other diseases of the musculoskeletal system and connective tissue; Z98.42 Cataract extraction status, left eye; Z98.41 Cataract extraction status, right eye; Z85.118 Personal history of other malignant neoplasm of bronchus and lung; Z90.710 Acquired absence of both cervix and uterus; Z88.5 Allergy status to narcotic agent; Z88.0 Allergy status to penicillin; Z96.1 Presence of intraocular lens
CPT/HCPCS: 20610; 77002; J1040; J3490; Q9965

== ENCOUNTER → 2019-09-12 | Outpatient (CLI) | payer MEDICARE ==
[~2019-09-12] MED LIST changes: -BUPIVACAINE MPF 0.25% 10 ML VIAL. ONE; +CONTRAST GIVEN. MC PRN; -IOHEXOL 180 MG/ML 10 ML VIAL. ONE; +IOHEXOL 240 MG/ML 50ML VIAL. PO ONE; +IOHEXOL 300 MG/ML 100ML VIAL. IV ONE; -methylPREDNISolone ACETATE 80 MG/ML VIAL. ONE
--- NOTE | 2019-09-12 10:56 | RAD ---
Examination: CT chest abdomen pelvis with IV contrast HISTORY: History of lymphoma COMPARISON: 03/07/2019 TECHNIQUE: Axial CT images of the chest abdomen pelvis were performed with IV contrast. Coronal and sagittal reformats are performed. Exposure: One or more of the following individualized dose reduction techniques were utilized for this examination: 1. Automated exposure control 2. Adjustment of the mA and/or kV according to patient size 3. Use of iterative reconstruction technique FINDINGS: The visualized thyroid gland grossly appears unremarkable. The central airways are patent. Coronary artery calcification is identified. Noncalcified 3.2 cm left upper lobe density similar to prior CT exam. Faint groundglass infiltrates identified in the right middle lobe of the lung. Multiple cystic structures identified in the liver similar to prior exam. The spleen, adrenals grossly appears unremarkable. Gallbladder is mildly distended. The stomach is mildly distended. The visualized pancreas grossly appears unremarkable. The small bowel is nondilated. Feces and gas noted in the colon. The appendix is normal. Urinary bladder is mildly distended The bilateral kidneys enhance symmetrically. Small amount of fluid identified in the left iliopsoas bursa. Moderate degenerative changes thoracolumbar spine. IMPRESSION: 1. No new lymphadenopathy identified. 2. Stable left upper lobe lung density. Faint groundglass opacities identified below the lung likely atelectasis or infiltrates. 3. Multiple liver cysts again identified. Electronically signed by: Dutch Patton MD (09/12/2019 10:53 AM) [id number]
== END | disposition home or self-care (01) ==
LOC: CT 08:42
PROVIDERS: ATTEND Internal Medicine Hematology & Oncology
DX: K76.89 Other specified diseases of liver (principal); M47.815 Spondylosis without myelopathy or radiculopathy, thoracolumbar region; I25.10 Atherosclerotic heart disease of native coronary artery without angina pectoris; N32.89 Other specified disorders of bladder; Q44.6 Cystic disease of liver; C83.39 Diffuse large B-cell lymphoma, extranodal and solid organ sites
CPT/HCPCS: 71260; 74177; Q9966; Q9967

== ENCOUNTER → 2019-12-01 | Outpatient (CLI) | payer MEDICARE ==
[~2019-12-01] MED LIST changes: -CALC600T4 PO; +CALC600T5 PO; -CONTRAST GIVEN. MC PRN; -IOHEXOL 240 MG/ML 50ML VIAL. PO ONE; -IOHEXOL 300 MG/ML 100ML VIAL. IV ONE; +OXYB5TAB10 PO
[2019-12-01 13:16] LABS: CLARITY,URINE CLEAR; COLOR,URINE YELLOW
[2019-12-01 13:17] LABS: BILIRUBIN,URINE NEGATIVE (NEG); NITRITE,URINE NEGATIVE (NEG); PH,URINE 5.5 (<5.0-8.0); PROTEIN,URINE NEGATIVE (NEG-TRACE); UROBILINOGEN,URINE 0.2 mg/dL (0.2 mg/dL)
[2019-12-01 13:37] LABS: BASO % 1 % (0-3); EOS % 1 % (0-3); HEMATOCRIT 37.4 % (36.0-47.0); LYMPH # 2.4 x10^3/uL (1.0-4.8); LYMPH % 38 % (24-48); MEAN CORPUSCULAR HEMOGLOBIN 32 pg (25-35); MEAN CORPUSCULAR HGB CONC 35 g/dL (31-37); MEAN CORPUSCULAR VOLUME 92 fL (79-100); MONO # 0.4 x10^3/uL (0.0-1.1); MONO % 7 % (0-9); NEUT # 3.3 x10^3/uL (1.8-7.7); NEUT % 54 % (31-73); PLATELET COUNT 221 x10^3/uL (140-400); RED BLOOD COUNT 4.08 x10^6/uL (3.50-5.40); RED CELL DISTRIBUTION WIDTH 14.1 % (11.5-14.5); WHITE BLOOD COUNT 6.2 x10^3/uL (4.0-11.0)
[2019-12-01 13:44] LABS: BACTERIA,URINE MANY /HPF (0-FEW); SQUAMOUS EPITHELIAL CELL,UR MANY /LPF
[2019-12-01 13:46] LABS: RBC,URINE 0 /HPF (0-2); WBC,URINE 0 /HPF (0-4)
[2019-12-01 13:59] LABS: ALBUMIN 3.3 g/dL (3.4-5.0); ALBUMIN/GLOBULIN RATIO 0.8 (1.0-1.7); CALCIUM 8.8 mg/dL (8.5-10.1); CREATININE 0.9 mg/dL (0.6-1.0); GFR 74.1; POTASSIUM 3.6 mmol/L (3.5-5.1); TOTAL BILIRUBIN 0.5 mg/dL (0.2-1.0); TOTAL PROTEIN 7.2 g/dL (6.4-8.2)
--- NOTE | 2019-12-01 14:06 | EKG ---
[facility] [address] [place] [address] Test Date: 2019-12-01 Test Time: 13:43:02 Pat Name: REYNALDO RICO Department: Room: Gender: F Deburrer Strip: : 1945 Requested By: GALE LEE Order Number: [id number] Reading MD: Philip Hancock Measurements Intervals [place] Rate: 62 P: 36 OH: 160 QRS: -32 QRSD: 100 T: 53 QT: 444 QTc: 453 Interpretive Statements SINUS RHYTHM ABNORMAL LEFT AXIS DEVIATION CONSIDER LEFT VENTRICULAR HYPERTROPHY T ABNORMALITY IN HIGH LATERAL LEADS ABNORMAL ECG Electronically Signed On 12-04-2019 10:42:35 CDT by Philip Hancock
--- NOTE | 2019-12-01 15:45 | RAD ---
AP and Lateral Views of the Chest 12/01/2019 3:13 PM Indication: Reason: Pre Op evaluation for bladder and colon tuck / Spl. Instructions: / History: Comparison: Chest radiograph July 17, 2018 CT chest March 07, 2019, September 12, 2019 Findings: Stable left upper lobe opacity. No pneumothorax or definitive effusion is seen. No new focal infiltrates are identified. No acute osseous changes are identified. IMPRESSION: Stable left upper lobe opacity. Otherwise stable chest radiograph. Electronically signed by: Ricco Jay MD (12/01/2019 3:42 PM) [id number]
--- NOTE | 2019-12-05 09:00 | NUR ---
Dr Quigley reviewed EKG. No further orders. Faxed pretesting results to Dr Gibbons's office.
== END | disposition home or self-care (01) ==
LOC: SURGPAT 12:38
PROVIDERS: ATTEND Obstetrics & Gynecology
DX: Z01.818 Encounter for other preprocedural examination (principal); Z11.59 Encounter for screening for other viral diseases; R94.31 Abnormal electrocardiogram [ECG] [EKG]; I51.7 Cardiomegaly
CPT/HCPCS: 71046; 80053; 81001; 85025; 87086; 93005; U0003

== ENCOUNTER 2019-12-07 05:39 | Observation (INO) | payer MEDICARE ==
[2019-12-06 10:45] VITALS: BP 122/71
[~2019-12-07] VITALS: Ht 157.5 cm; Wt 91.6 kg
[2019-12-07] VITALS (8 sets, daily range): BP systolic 110–133; BP diastolic 53–71
[~2019-12-07 05:39] MED LIST changes: -CALC600T5 PO; +CALC600T6 PO
[2019-12-07] MEDS ORDERED: CLINDAMYCIN 900MG PREMIX 50 ML IV ONE (06:00)
[2019-12-07] MEDS ORDERED: DEXAMETHASONE SOD PHOS 4 MG/ML VIAL ONE (06:45)
[2019-12-07] MEDS ORDERED: ONDANSETRON PF 4 MG/2 ML VIAL. ONE (06:45)
[2019-12-07] MEDS ORDERED: LIDOCAINE 2% PF 5 ML VIAL. ONE (06:45)
[2019-12-07] MEDS ORDERED: PROPOFOL 10 MG/ML (20ML) VIAL. IV ONE (06:45)
[2019-12-07] MEDS ORDERED: PROCHLORPERAZINE 10 MG/2 ML VIAL. IV PRN (07:00)
[2019-12-07] MEDS ORDERED: HYDROmorphone 2 MG/ML VIAL IV PRN (07:00)
[2019-12-07] MEDS ORDERED: MORPHINE SULFATE 2 MG/ML VIAL. IV PRN ×2 (07:00→10:00)
[2019-12-07] MEDS ORDERED: IV RINGERS,LACTATED 1000ML 1,000 ML IV SCH (07:00)
[2019-12-07] MEDS ORDERED: LIDOCAINE 1% PF 2 ML VIAL. ID PRN (07:00)
[2019-12-07] MEDS ORDERED: fentaNYL PF VIAL 100 MCG/2 ML VIAL IV PRN (07:00)
[2019-12-07] MEDS ORDERED: ONDANSETRON PF 4 MG/2 ML VIAL. IV PRN ×2 (07:00→10:00)
[2019-12-07] MEDS ORDERED: fentaNYL PF VIAL 100 MCG/2 ML VIAL ONE ×2 (07:01→09:31)
[2019-12-07] MEDS ORDERED: BUPIVACAINE-EPI 0.25%-1:200000 MPF 30 ML VIAL. ONE ×2 (07:03→07:11)
[2019-12-07] MEDS ORDERED: ESTROGENS, CONJ VAGINAL CREAM 30GM TUBE. ONE (07:03)
[2019-12-07] MEDS ORDERED: 0.9 % SODIUM CHLORIDE 20 ML VIAL. IJ ONE (07:04)
[2019-12-07] MEDS ORDERED: ePHEDrine PF IN SALINE 50 MG/10 ML SYRINGE. IV ONE (07:37)
--- NOTE | 2019-12-07 09:45 | PDOC ---
BRIEF OPERATIVE NOTE Date: Dec 07, 2019 Pre-Op Diagnosis large 3 degree rectocele, 2 cystocele Post-Op Diagnosis same Procedure Performed anterior and posterior repairs Surgeon Dr. Joanna Gibbons Newspaper Inserter INA Burgess Anesthesiologist Dr. Rossi Anesthesia Type: General Blood Loss 10cc IV Fluid 400cc Urine Output 200cc clear via benoit Specimens Obtained vaginal mucosa (not sent) Findings 2 cystocele, 3rd degree rectocele Complications none Operative Note [id number] JOANNA GIBBONS MD Dec 07, 2019 09:44
[2019-12-07] MEDS: fentaNYL PF VIAL 100 MCG/2 ML VIAL IV PRN ×2 (09:53→10:00)
[2019-12-07] MEDS ORDERED: CALCIUM CARBONATE 500 MG TAB.CHEW PO PRN (10:00)
[2019-12-07] MEDS ORDERED: diphenhydrAMINE 50 MG/ML VIAL IV PRN (10:00)
[2019-12-07] MEDS ORDERED: LACTULOSE 20 GM/30 ML SOLUTION. PO PRN (10:00)
[2019-12-07] MEDS ORDERED: ZOLPIDEM 5 MG TABLET. PO PRN (10:00)
[2019-12-07] MEDS ORDERED: NALOXONE 0.4 MG/ML VIAL. IV PRN (10:00)
[2019-12-07] MEDS ORDERED: 0.9 % SODIUM CHLORIDE 10 ML DISP.SYRIN. IV PRN (10:00)
[2019-12-07] MEDS ORDERED: SIMETHICONE 80 MG TAB.CHEW PO PRN (10:00)
[2019-12-07] MEDS ORDERED: MAG HYDROX/ALUMINUM HYD/SIMETH 30 ML ORAL.SUSP PO PRN (10:00)
[2019-12-07] MEDS ORDERED: diphenhydrAMINE HCL 25 MG CAPSULE PO PRN (10:00)
--- NOTE | 2019-12-07 10:20 | OP ---
DATE OF SURGERY: 12/07/2019 PREOPERATIVE DIAGNOSES: Large symptomatic third-degree rectocele and she also had a small second-degree cystocele. POSTOPERATIVE DIAGNOSES: Large symptomatic third-degree rectocele and she also had a small second-degree cystocele. PROCEDURE: Anterior and posterior colporrhaphies with a perineoplasty on the posterior repair. SURGEON: Gale Gibbons MD EDGER TAILER: INA Castellon ANESTHESIA: General. ANESTHESIOLOGIST: Riley Rossi MD BLOOD LOSS: 10 mL. URINE OUTPUT: 200 mL clear via Corrales catheter. INTRAVENOUS FLUIDS: 400 mL of crystalloid. SPECIMEN: Just the anterior and posterior vaginal mucosa that was trimmed, but it was not sent. FINDINGS: Again second-degree cystocele, third-degree rectocele. COMPLICATIONS: None. DESCRIPTION OF PROCEDURE: This patient was taken to the operating room where general anesthesia was placed. The patient was placed in a dorsal lithotomy position in [facility]. The patient's vagina was prepped and draped in the normal sterile fashion and a Corrales catheter had been inserted under sterile technique. Upon my arrival, a timeout was performed. Once everyone agreed, the procedure was initiated. A weighted speculum was placed in the patient's vagina. Allis clamps were used to grasp the vaginal cuff from her prior hysterectomy and it was decided to go ahead and perform the anterior repair. A 30 mL of a dilute solution of 0.25% Marcaine with epinephrine, they diluted a 50 of local into 200 of injectable saline, so it was a dilute mixture of 1 part local to 4 parts injectable saline. A total of 90 was used. The dilute solution 30 was injected anteriorly and I believe 60 was injected posteriorly. Scalpel was used to make a small vertical incision. Allis clamps were placed on either side of this and Metzenbaum scissors were used to open up the anterior defect, spreading out the Allises using the Metzenbaums and the Ray-John, sharp and blunt dissection was done to release the defect from the anterior vaginal mucosa. Once it was reduced, 3 or 4 interrupted 2-0 Vicryl sutures were placed to reduce it. A tiny bit was trimmed off and it was sewn back together in a running locked fashion with a 2-0 Vicryl. Once this was done, Yeimy's were placed at 4 and 7 o'clock at the introitus. Again, that dilute solution was used to inject the perineal body and the rectocele. Once this was done, the scalpel was used to make a wedge resection out of the opening of the vagina and the top of the perineal body. Metzenbaum scissors were used to open up the posterior defect placing Allises along the way going within 0.5 cm to 1 cm of that vaginal cuff line. Once this was done, again opening up using the Metzenbaums to sharply and then the 4 x 4 to bluntly release that posterior defect from the posterior vaginal mucosa reducing it greatly, this one was much larger and 6 or 7 interrupted sutures were used to reduce this and then a few interrupteds over the top as well, making sure we went buttonholing and then a larger amount of tissue was trimmed off both sides, taking off the excess tissue and then closing it with a full length 2-0 Vicryl as well in a running locked fashion through the vagina, bringing together the introitus going under reapproximating the perineal body and then closing the perineal body in a subcutaneous fashion like an episiotomy going back in and tying it off vaginally. Everything was hemostatic. The anterior and posterior repair looked good. A small vaginal packing with Premarin cream was used just to pack the vagina. The Corrales catheter was left in. All sponge, lap and needle counts were correct x 2 by OR personnel. The patient was awakened from anesthesia and brought to recovery room in stable condition. GALE GIBBONS MD DR: PORTILLO/josé JOB#: [id number] / [id number]
[2019-12-07] MEDS: MAGNESIUM HYDROXIDE 2,400 MG/30 ML ORAL.SUSP. PO PRN (14:19)
[2019-12-07] MEDS: HYDROcodone/APAP 5/325MG 1 TAB TABLET PO PRN ×2 (14:19→20:30)
[2019-12-08 04:41] VITALS: BP 114/53
[2019-12-08] MEDS: HYDROcodone/APAP 5/325MG 1 TAB TABLET PO PRN ×2 (06:17→11:09)
[2019-12-08 08:32] LABS: CALCIUM 8.4 mg/dL (8.5-10.1); CREATININE 0.8 mg/dL (0.6-1.0); GFR 84.8; POTASSIUM 3.5 mmol/L (3.5-5.1)
[2019-12-08 11:01] VITALS: BP 111/65
[2019-12-08] MEDS: MAGNESIUM HYDROXIDE 2,400 MG/30 ML ORAL.SUSP. PO PRN (11:09)
--- NOTE | 2019-12-08 13:06 | PDOC ---
SURGICAL PROGRESS NOTE Subjective Doing well without complaints. +flatus, voiding without catheter, tolerating regular diet; minimal pain Vital Signs Vital Signs Date Time Temp Pulse Resp B/P (MAP) Pulse Ox O2 Delivery O2 Flow Rate FiO2 12/08/19 11:09 18 Room Air 12/08/19 11:01 98.0 69 111/65 (80) 95 98.0 12/07/19 12:45 1.0 I&O Intake and Output 12/08/19 07:00 Intake Total 2350 ml Output Total 3960 ml Balance -1610 ml Intake Oral 800 ml IV Total 750 ml Other 800 ml Output Urine Total 2950 ml Stool Total 1000 ml Estimated Blood Loss 10 ml PATIENT HAS A MATUTE: No General: Alert, Oriented X3, Cooperative, No acute distress HEENT: Atraumatic Heart: Regular rate Abdomen: Soft, No tenderness Extremities: No clubbing, No cyanosis, No edema Skin: No rashes, No breakdown Neuro: Normal speech Psych/Mental Status: Mental status NL, Mood NL Labs Laboratory Tests Test 12/08/19 07:32 Hematocrit 34.4 % (36.0-47.0) Sodium Level 139 mmol/L (136-145) Potassium Level 3.5 mmol/L (3.5-5.1) Chloride Level 102 mmol/L (98-107) Carbon Dioxide Level 33 mmol/L (21-32) Anion Gap 4 (6-14) Blood Urea Nitrogen 10 mg/dL (7-20) Creatinine 0.8 mg/dL (0.6-1.0) Estimated GFR (Cockcroft-Gault) 84.8 Glucose Level 91 mg/dL (70-99) Calcium Level 8.4 mg/dL (8.5-10.1) Laboratory Tests Test 12/08/19 07:32 Hematocrit 34.4 % (36.0-47.0) Sodium Level 139 mmol/L (136-145) Potassium Level 3.5 mmol/L (3.5-5.1) Chloride Level 102 mmol/L (98-107) Carbon Dioxide Level 33 mmol/L (21-32) Anion Gap 4 (6-14) Blood Urea Nitrogen 10 mg/dL (7-20) Creatinine 0.8 mg/dL (0.6-1.0) Estimated GFR (Cockcroft-Gault) 84.8 Glucose Level 91 mg/dL (70-99) Calcium Level 8.4 mg/dL (8.5-10.1) I have reviewed the following labs, vitals, nursing Cardiovascular: HTN Assessment/Plan POD#1 s/p anterior and posterior repairs Routine po care d/c to home NPV x 6 weeks light/limited activity x 2 weeks keep scheduled follow up with me as scheduled NO driving on narcotics hydrocodone written for home for pain meds may alternate OTC ibuprofen as needed also call or return sooner for any other questions or concerns not limited to but including pain unrelieved with pain meds, increased or unexplained vag bleeding, T>100.4 Justicifation of Admission Dx: Justifications for Admission: Justification of Admission Dx: Yes GALE LEE MD Dec 08, 2019 13:06
--- NOTE | 2019-12-08 13:14 | PDOC3 ---
Discharge Summary Visit Information Date of Admission: Dec 07, 2019 Date of Discharge: Dec 08, 2019 Final Diagnosis cystocele and rectocele Brief Hospital Course Allergies Allergies Coded Allergies Type Severity Reaction Last Updated Verified Penicillins Allergy Intermediate Itching 12/01/19 Yes codeine Allergy Intermediate Itching 08/17/13 Yes Vital Signs Vital Signs Date Time Temp Pulse Resp B/P (MAP) Pulse Ox O2 Delivery O2 Flow Rate FiO2 12/08/19 11:09 18 Room Air 12/08/19 11:01 98.0 69 111/65 (80) 95 98.0 12/07/19 12:45 1.0 Lab Results Laboratory Tests Test 12/08/19 07:32 Hematocrit 34.4 % (36.0-47.0) Sodium Level 139 mmol/L (136-145) Potassium Level 3.5 mmol/L (3.5-5.1) Chloride Level 102 mmol/L (98-107) Carbon Dioxide Level 33 mmol/L (21-32) Anion Gap 4 (6-14) Blood Urea Nitrogen 10 mg/dL (7-20) Creatinine 0.8 mg/dL (0.6-1.0) Estimated GFR (Cockcroft-Gault) 84.8 Glucose Level 91 mg/dL (70-99) Calcium Level 8.4 mg/dL (8.5-10.1) Laboratory Tests Test 12/08/19 07:32 Hematocrit 34.4 % (36.0-47.0) Sodium Level 139 mmol/L (136-145) Potassium Level 3.5 mmol/L (3.5-5.1) Chloride Level 102 mmol/L (98-107) Carbon Dioxide Level 33 mmol/L (21-32) Anion Gap 4 (6-14) Blood Urea Nitrogen 10 mg/dL (7-20) Creatinine 0.8 mg/dL (0.6-1.0) Estimated GFR (Cockcroft-Gault) 84.8 Glucose Level 91 mg/dL (70-99) Calcium Level 8.4 mg/dL (8.5-10.1) Brief Hospital Course Ms. Kemp is a 74 old female who presented with symptomatic cystocele and rectoceles. She underwent repair yesterday without problems and has had an unremarkable postoperative course. She is AFVSS, tolerating regular diet, ambulating well and voiding without catheter. Assessment Assessment POD#1 s/p anterior and posterior repairs Routine po care d/c to home NPV x 6 weeks light/limited activity x 2 weeks keep scheduled follow up with me as scheduled NO driving on narcotics hydrocodone written for home for pain meds may alternate OTC ibuprofen as needed also call or return sooner for any other questions or concerns not limited to but including pain unrelieved with pain meds, increased or unexplained vag bleeding, T>100.4 Discharge Information Condition at Discharge: Stable Follow Up: Weeks Disposition/Orders: D/C to Home Scheduled Amlodipine Besylate (Amlodipine Besylate) 5 Mg Tablet, 10 MG PO DAILY for hypertension, (Reported) Entered as Reported by: MAGED OLSON on 05/12/131351 Last Taken: Unknown Dose on 12/07/190 Last Action: Last Taken Edited on 12/07/19 0650 by RADHA KHANNA Ca Cmb No.1/Vit D3/B-6/Fa/B12 (Vitamin D3 1,000 Unit Tablet) 1 Each Tablet, 1 EACH PO DAILY, (Reported) Entered as Reported by: MAGED OLSON on 05/12/131351 Last Taken: Unknown Dose on 12/01/19 Last Action: Last Taken Edited on 12/07/19 0650 by RADHA JEY Calcium Carbonate (Calcium Carbonate) 600 Mg Tablet, 1 TAB PO DAILY for Supplement for 30 Days, #30 Ref 0 (Reported) Entered as Reported by: RUTH CULLEN on 08/22/19 1144 Last Taken: Unknown Dose on 12/01/19 Last Action: Last Taken Edited on 12/07/19 0650 by RADHATODD KHANNA Esomeprazole Magnesium (Nexium Capsule) 40 Mg Capsule.dr, 40 MG PO DAILY for gerd, (Reported) Entered as Reported by: MAGED OLSON on 05/12/131351 Last Taken: Unknown Dose on 12/06/19 Last Action: Last Taken Edited on 12/07/19 0650 by RADHA JEY Losartan Potassium (Losartan Potassium) 50 Mg Tablet, 50 MG PO DAILY for HTN, (Reported) Entered as Reported by: MAGED OLSON on 05/12/131351 Last Taken: Unknown Dose on 12/07/190 Last Action: Last Taken Edited on 12/07/19 0650 by RADHA JEY Multivitamin With Minerals (One Daily Complete) 1 Each Tablet, 1 EACH PO DAILY for supplement, (Reported) Entered as Reported by: Laci Olivares on 07/17/18 1651 Last Taken: Unknown Dose on 12/01/19 Last Action: Last Taken Edited on 12/07/19 0650 by RADHA KHANNA [place]-3 Fatty Acids ([place]-3) 1,000 Mg Capsule, 1,000 MG PO DAILY for heart health, (Reported) Entered as Reported by: RUTH CULLEN on 08/22/19 1104 Last Taken: Unknown Dose on 12/01/19 Last Action: Last Taken Edited on 12/07/19 0650 by RADHA KHANNA Oxybutynin Chloride (Oxybutynin Chloride) 5 Mg Tablet, 1 TAB PO DAILY for incontinence, #60 Ref 11 (Reported) Entered as Reported by: MALIK HESTER on 12/01/19 1308 Rosuvastatin Calcium (Crestor) 10 Mg Tablet, 10 MG PO DAILY for HLD, (Reported) Entered as Reported by: MAGED OLSON on 05/12/13 1352 Sulindac (Sulindac) 150 Mg Tablet, 150 MG PO BID, (Reported) Entered as Reported by: MAGED OLSON on 05/12/13 1352 [areds] , Unknown Dose EACHEYE BID, (Reported) Entered as Reported by: RUTH CULLEN on 08/22/19 1104 Scheduled PRN Albuterol Sulfate (Proair Hfa) 8.5 Gm Hfa.aer.ad, 2 PUFF INH PRN Q6HRS PRN for SHORTNESS OF BREATH, (Reported) Entered as Reported by: TIESHA BLAS on 08/23/18 1558 Last Taken: Unknown Dose on 10/07/19 Last Action: Last Taken Edited on 12/07/19 0650 by RADHA KHANNA Diazepam (Diazepam) 5 Mg Tablet, 5 MG PO PRN QHS PRN for ANXIETY, #30 Prescribed by: ANNE LUNA on 07/19/18 1001 Hydrocodone Bit/Acetaminophen (Hydrocodone-Apap 5-325 ) 1 Tab Tablet, 1 TAB PO PRN Q6HRS PRN for PAIN, Ref 0 (Reported) Entered as Reported by: RUTH CULLEN on 08/22/19 1104 Last Taken: Unknown Dose on 12/07/19 0430 Last Action: Last Taken Edited on 12/07/19 0650 by RADHA KHANNA Metoprolol Succinate (Metoprolol Succinate ( Xl )) 25 Mg Tab.er.24h, 50 MG PO DAILY PRN for HYPERTENSION, #30 Ref 0 (Reported) Entered as Reported by: RUTH CULLEN on 08/22/19 1104 Last Taken: Unknown Dose on 12/07/19 0430 Last Action: Last Taken Edited on 12/07/19649 by RADHA KHANNA Patient Instructions Patient Instructions POD#1 s/p anterior and posterior repairs Routine po care d/c to home NPV x 6 weeks light/limited activity x 2 weeks keep scheduled follow up with me as scheduled NO driving on narcotics hydrocodone written for home for pain meds may alternate OTC ibuprofen as needed also call or return sooner for any other questions or concerns not limited to but including pain unrelieved with pain meds, increased or unexplained vag bleeding, T>100.4 Justicifation of Admission Dx: Justifications for Admission: Justification of Admission Dx: Yes GALE LEE MD Dec 08, 2019 13:13
[2019-12-08 15:15] VITALS: BP 141/73
--- NOTE | 2019-12-08 16:00 | NUR ---
Discharge and follow up instructions reviewed and given to pt along with a RX for [place]. Pt denied questions or complaints at this time. Pt taken out of the hospital per w/C to her daughter who was waiting in the car.
== END 2019-12-08 17:00 | disposition home or self-care (01) ==
LOC: SURG 05:39 → 3 NORTH 10:25
PROVIDERS: ADMIT Obstetrics & Gynecology; ATTEND Obstetrics & Gynecology
DX: N81.6 Rectocele (principal); N81.10 Cystocele, unspecified
CPT/HCPCS: 36415; 57260; 80048; 85014; 86850; 86900; 86901; 96374; A7015; G0378; G0379; J1100; J1200; J1956; J2405; J2704; J3010; J3490; J7120

== ENCOUNTER → 2020-07-25 | Outpatient (CLI) | payer MEDICARE ==
[~2020-07-25] MED LIST changes: +AMLO-186 PO; -AMLO5TAB10 PO; -CLIN150C14 PO; +CLIN150C15 PO; -MECL12.573 PO; +MECL12.582 PO
[2020-07-25 10:53] LABS: BASO # 0.1 x10^3/uL (0.0-0.2); BASO % 1 % (0-3); EOS % 1 % (0-3); HEMATOCRIT 39.8 % (36.0-47.0); HEMOGLOBIN 13.3 g/dL (12.0-15.5); LYMPH # 2.3 x10^3/uL (1.0-4.8); LYMPH % 29 % (24-48); MEAN CORPUSCULAR HEMOGLOBIN 31 pg (25-35); MEAN CORPUSCULAR HGB CONC 33 g/dL (31-37); MEAN CORPUSCULAR VOLUME 92 fL (79-100); MONO # 0.6 x10^3/uL (0.0-1.1); MONO % 8 % (0-9); NEUT # 4.7 x10^3/uL (1.8-7.7); NEUT % 61 % (31-73); PLATELET COUNT 239 x10^3/uL (140-400); RED BLOOD COUNT 4.35 x10^6/uL (3.50-5.40); RED CELL DISTRIBUTION WIDTH 14.2 % (11.5-14.5); WHITE BLOOD COUNT 7.8 x10^3/uL (4.0-11.0)
[2020-07-25 11:02] LABS: CALCIUM 8.9 mg/dL (8.5-10.1); CREATININE 0.9 mg/dL (0.6-1.0); GFR 73.9; POTASSIUM 4.1 mmol/L (3.5-5.1)
[2020-07-25 11:09] LABS: ALBUMIN 3.1 g/dL (3.4-5.0); ALBUMIN/GLOBULIN RATIO 0.8 (1.0-1.7); TOTAL BILIRUBIN 0.5 mg/dL (0.2-1.0); TOTAL PROTEIN 6.9 g/dL (6.4-8.2)
== END ==
LOC: ONCLAB 10:25
PROVIDERS: ATTEND Internal Medicine Hematology & Oncology
DX: C34.12 Malignant neoplasm of upper lobe, left bronchus or lung (principal)
CPT/HCPCS: 36415; 80053; 83615; 85025

== ENCOUNTER 2020-10-27 05:20 | Emergency (ER) | payer MEDICARE ==
[~2020-10-27] VITALS: Ht 157.5 cm; Wt 84.1 kg
[~2020-10-27 05:20] MED LIST changes: -CALC600T6 PO; +CALC600T60 PO
--- NOTE | 2020-10-27 05:36 | ED.ADGEN ---
Past Medical History Past Medical History: Cancer, GERD, High Cholesterol, Hypertension, Other Additional Past Medical Histor: Non-Hodgkins lymphoma Past Surgical History: Hysterectomy, Tonsillectomy, Other Additional Past Surgical Histo: CATARACT SX Smoking Status: Never Smoker Alcohol Use: None Drug Use: None General Adult EDM: Chief Complaint: COUGH HPI: HPI: Patient is a 75 year old female coming in for cough productive of white phlegm. Patient states she has been unable to cough up the mucus because it is very thick. Cough has been going on for 2 weeks. Saw her primary care provider and is [facility]. Is 2 months out from her second Mederna vaccine. No sick contacts at home. Denies any fevers, vomiting, urinary changes, but has had a little bit of diarrhea. Patient denies any history of tobacco use or smoke exposure. Patient has a history significant for lung cancer and is status post chemo and radiation treatment in 2013. Review of Systems: Review of Systems: All other systems within normal limits except for as noted in the HPI Current Medications: Current Medications Medications (Trade) Dose Ordered Sig/Gerardo Start Time Stop Time Status Last Admin Dose Admin Albuterol Sulfate (Ventolin Neb Soln) 10 mg 1X ONCE 10/27/20 07:00 10/27/20 07:01 DC 10/27/20 07:19 10 MG Albuterol/ Ipratropium (Duoneb) 3 ml 1X ONCE 10/27/20 06:15 10/27/20 06:16 DC 10/27/20 06:01 3 ML Benzonatate (Tessalon Perle) 100 mg 1X ONCE 10/27/20 07:00 10/27/20 07:01 DC 10/27/20 07:03 100 MG Dexamethasone Sodium Phosphate (Decadron) 10 mg 1X ONCE 10/27/20 06:00 10/27/20 06:01 DC 10/27/20 05:59 10 MG Allergies: Allergies: Allergies Coded Allergies Type Severity Reaction Last Updated Verified Penicillins Allergy Intermediate Itching 12/01/19 Yes codeine Allergy Intermediate Itching 08/17/13 Yes Physical Exam: PE: Constitutional: Well developed, well nourished, no acute distress, non-toxic appearance. [] HENT: Normocephalic, atraumatic, bilateral external ears normal, nose normal. [] Eyes: PERRLA, conjunctiva normal, no discharge. [] Neck: No rigidity, supple, no stridor. [] Cardiovascular: Regular rate and rhythm, brisk cap refill [] Lungs & Thorax: Non labored symmetric respirations, bilateral wheezes] Abdomen: Soft, nondistended. Skin: Warm, dry, no erythema, no rash. [] Back: Unremarkable Extremities: No deformities, range of motion grossly intact, no lower extremity edema [] Neurologic: Alert and oriented X 3, no focal deficits noted. [] Psychologic: Affect normal, judgement normal, mood normal. [] Current Patient Data: Labs: Laboratory Tests Test 10/27/20 05:40 10/27/20 06:14 White Blood Count 5.3 x10^3/uL (4.0-11.0) Red Blood Count 4.51 x10^6/uL (3.50-5.40) Hemoglobin 13.6 g/dL (12.0-15.5) Hematocrit 40.5 % (36.0-47.0) Mean Corpuscular Volume 90 fL (79-100) Mean Corpuscular Hemoglobin 30 pg (25-35) Mean Corpuscular Hemoglobin Concent 34 g/dL (31-37) Red Cell Distribution Width 13.8 % (11.5-14.5) Platelet Count 230 x10^3/uL (140-400) Neutrophils (%) (Auto) 47 % (31-73) Lymphocytes (%) (Auto) 39 % (24-48) Monocytes (%) (Auto) 8 % (0-9) Eosinophils (%) (Auto) 5 % (0-3) H Basophils (%) (Auto) 0 % (0-3) Neutrophils # (Auto) 2.5 x10^3/uL (1.8-7.7) Lymphocytes # (Auto) 2.1 x10^3/uL (1.0-4.8) Monocytes # (Auto) 0.4 x10^3/uL (0.0-1.1) Eosinophils # (Auto) 0.2 x10^3/uL (0.0-0.7) Basophils # (Auto) 0.0 x10^3/uL (0.0-0.2) Sodium Level 143 mmol/L (136-145) Potassium Level 3.3 mmol/L (3.5-5.1) L Chloride Level 104 mmol/L (98-107) Carbon Dioxide Level 30 mmol/L (21-32) Anion Gap 9 (6-14) Blood Urea Nitrogen 10 mg/dL (7-20) Creatinine 0.9 mg/dL (0.6-1.0) Estimated GFR (Cockcroft-Gault) 73.9 BUN/Creatinine Ratio 11 (6-20) Glucose Level 117 mg/dL (70-99) H Calcium Level 8.7 mg/dL (8.5-10.1) Total Bilirubin 0.3 mg/dL (0.2-1.0) Aspartate Amino Transferase (AST) 24 U/L (15-37) Alanine Aminotransferase (ALT) 24 U/L (14-59) Alkaline Phosphatase 88 U/L (46-116) WR-Gix-Z-Type Natriuretic Peptide 146 pg/mL (0-449) Total Protein 6.7 g/dL (6.4-8.2) Albumin 3.4 g/dL (3.4-5.0) Albumin/Globulin Ratio 1.0 (1.0-1.7) POC Venous pH 7.42 (7.32-7.42) POC Venous pCO2 50 mmHg (41-51) POC Venous pO2 49 mmHg (20-40) H Venous Blood HCO3 32 mmol/L (24-28) H POC Venous O2 Saturation (Ravin) 84 % POC FiO2 21.0 Laboratory Tests 10/27/20 05:40 Laboratory Tests 10/27/20 05:40 Vital Signs: Vital Signs Date Time Temp Pulse Resp B/P (MAP) Pulse Ox O2 Delivery O2 Flow Rate FiO2 10/27/20 07:55 87 20 146/74 (98) 100 Room Air 10/27/20 05:20 98.2 98.2 EKG: EKG: [] Heart Score: C/O Chest Pain: No Risk Factors: Risk Factors: DM, Current or recent (<one month) smoker, HTN, HLP, family history of CAD, obesity. Risk Scores: Score 0 - 3: 2.5% MACE over next 6 weeks - Discharge Home Score 4 - 6: 20.3% MACE over next 6 weeks - Admit for Clinical Observation Score 7 - 10: 72.7% MACE over next 6 weeks - Early Invasive Strategies Radiology/Procedures: Radiology/Procedures: [] Course & Med Decision Making: Course & Med Decision Making Care transitioned at shift change, pending reevaluation after DuoNeb, chest x- ray, and labs. Per chart review patient was hospitalized 1019 for very similar symptoms. Patient was having uncontrollable cough after failing outpatient antibiotic treatment for pneumonia. She has a history of adenocarcinoma of the lung and non-Hodgkin's lymphoma. Assumed care of patient at check out from Dr. Patrick. At check out, lab work and chest x-ray was pending and patient is stable. At this time, patient is feeling some better. Lab work and x-ray are unremarkable. Patient is oxygenating well. At this time she will be discharged home on prednisone. She is on Levaquin at home. Patient's test results and vitals while in the ED were fully reviewed and discussed with the patient. Patient is stable and at this time does not need admission to the hospital. We have discussed strict return precautions and the importance of following up with their Primary Care Physician. Patient stated understanding and was given an opportunity to ask any questions. Patient is in agreement with plan. Mp Disclaimer: Mp Disclaimer: This electronic medical record was generated, in whole or in part, using a voice recognition dictation system. Departure Departure Impression: Primary Impression: COPD exacerbation Disposition: HOME / SELF CARE / HOMELESS Condition: IMPROVED Referrals: ANNE LUNA MD (PCP) Patient Instructions: Chronic Obstructive Pulmonary Disease Exacerbation Scripts Benzonatate (TESSALON PERLE) 100 Mg Capsule 1 CAP PO TID for cough, #21 CAP Prov: MEGAN CRUZ MD 10/27/20 Prednisone (PREDNISONE) 50 Mg Tablet 1 TAB PO DAILY, #5 TAB Prov: MEGAN CRUZ MD 10/27/20 SEBLE PATRICK MD Oct 27, 2020 05:36 MEGAN CRUZ MD Oct 27, 2020 08:09
[2020-10-27] MEDS ORDERED: DEXAMETHASONE SOD PHOS 20 MG/5 ML VIAL. IV ONE (06:00)
[2020-10-27] MEDS ORDERED: IPRATRPIUM/ALBUTEROL 0.5/2.5MG 3 ML NEBU. NEB ONE ×2 (06:00→06:15)
[2020-10-27 06:03] LABS: CALCIUM 8.7 mg/dL (8.5-10.1); CREATININE 0.9 mg/dL (0.6-1.0); GFR 73.9; POTASSIUM 3.3 mmol/L (3.5-5.1)
[2020-10-27 06:09] LABS: ALBUMIN 3.4 g/dL (3.4-5.0); TOTAL BILIRUBIN 0.3 mg/dL (0.2-1.0); TOTAL PROTEIN 6.7 g/dL (6.4-8.2)
[2020-10-27 06:13] LABS: BASO % 0 % (0-3); EOS # 0.2 x10^3/uL (0.0-0.7); EOS % 5 % (0-3); HEMATOCRIT 40.5 % (36.0-47.0); HEMOGLOBIN 13.6 g/dL (12.0-15.5); LYMPH # 2.1 x10^3/uL (1.0-4.8); LYMPH % 39 % (24-48); MEAN CORPUSCULAR HEMOGLOBIN 30 pg (25-35); MEAN CORPUSCULAR HGB CONC 34 g/dL (31-37); MEAN CORPUSCULAR VOLUME 90 fL (79-100); MONO # 0.4 x10^3/uL (0.0-1.1); MONO % 8 % (0-9); NEUT # 2.5 x10^3/uL (1.8-7.7); NEUT % 47 % (31-73); PLATELET COUNT 230 x10^3/uL (140-400); RED BLOOD COUNT 4.51 x10^6/uL (3.50-5.40); RED CELL DISTRIBUTION WIDTH 13.8 % (11.5-14.5); WHITE BLOOD COUNT 5.3 x10^3/uL (4.0-11.0)
[2020-10-27 06:19] LABS: ISTAT BE VENOUS 8 mmol/L (0-3); ISTAT HCO3 VEN 32 mmol/L (24-28); ISTAT PCO2 VEN 50 mmHg (41-51); ISTAT PH VEN 7.42 (7.32-7.42); ISTAT PO2 VEN 49 mmHg (20-40); ISTAT SAT O2 VEN 84 %; ISTAT TCO2 VEN 34 mmol/L (21-32)
--- NOTE | 2020-10-27 06:45 | RAD ---
EXAMINATION: XR CHEST 2V CLINICAL HISTORY: Cough EXAM DATE/TIME: 10/27/2020 5:57 AM COMPARISON: 04/02/2020 FINDINGS: Lines, Tubes, and Devices: None. Cardiomediastinal Silhouette: Normal heart size. Aortic atherosclerotic calcification. Lungs and Pleura: Left upper lung zone opacity, similar to prior study when accounting for difference s in imaging technique. No evidence of new consolidative opacity or pleural effusion. Pulmonary vascu lature unremarkable. Bones and Soft Tissues: Degenerative changes of the thoracic spine. IMPRESSION: No evidence of acute cardiopulmonary abnormality or significant interval change. Electronically signed by: Raffi Brown DO (10/27/2020 6:43 AM) [facility]
[2020-10-27] MEDS ORDERED: BENZONATATE 100 MG CAPSULE. PO ONE (07:00)
[2020-10-27] MEDS ORDERED: ALBUTEROL SULFATE 2.5 MG/3 ML NEBU. CONT NEB ONE (07:00)
[2020-10-27 07:55] VITALS: BP 146/74
[2020-10-27] MEDS ORDERED: PRED50TA PO (08:08)
[2020-10-27] MEDS ORDERED: BENZ100C PO (08:08)
== END 2020-10-27 08:23 | disposition home or self-care (01) ==
LOC: ER 05:20
DX: J44.1 Chronic obstructive pulmonary disease with (acute) exacerbation (principal); E78.00 Pure hypercholesterolemia, unspecified; I10 Essential (primary) hypertension; K21.9 Gastro-esophageal reflux disease without esophagitis; Z88.0 Allergy status to penicillin; Z88.5 Allergy status to narcotic agent
CPT/HCPCS: 36415; 71046; 80053; 82803; 83880; 85025; 94640; 94644; 96374; 99285; J1100; J7613

== ENCOUNTER 2020-10-29 14:46 | Emergency (ER) | payer MEDICARE ==
[~2020-10-29] VITALS: Ht 157.5 cm; Wt 85.0 kg
[~2020-10-29 14:46] MED LIST changes: +BENZ100C PO; +PRED50TA PO
--- NOTE | 2020-10-29 15:39 | PHYS DOC ---
Past Medical History Past Medical History: Cancer, GERD, High Cholesterol, Hypertension, Other Additional Past Medical Histor: Non-Hodgkins lymphoma Past Surgical History: Hysterectomy, Tonsillectomy, Other Additional Past Surgical Histo: CATARACT SX Smoking Status: Never Smoker Alcohol Use: None Drug Use: None General Adult EDM: Chief Complaint: SHORTNESS OF BREATH HPI: HPI: Patient is a 75 year old female patient with recurring cough. Reports she has had a cough intermittent for the last few months, states she seems to have been worse for the last couple days. States she has been seen in this ER 2 days ago, had a work-up, will start with Tessalon Perles, and have been given a DuoNeb treatment. She had seen her primary care provider prior to that, had been given prescription for Levaquin. Reports she is on day 5 of 7 of her Levaquin has been taking it as prescribed. States she had been feeling little bit better however she has continued this cough. States she feels the mucus is very thick in her throat, states she just cannot lay flat and she has problems trying to sleep. States she has a history of adenocarcinoma, she has been in remission for 5 years. Denies any exposure to ill persons. Denies any nausea, vomiting, diarrhea. States she has tried some Mucinex DM, with plenty fluids however she has continued to have this cough. States she coughs to her during the day but she urinates herself, this is causing her issues at home. Review of Systems: Review of Systems: Constitutional: Denies fever or chills. [] Eyes: Denies change in visual acuity. [] HENT: Reports nasal congestion, denies sore throat Respiratory: Reports cough, shortness of breath.] Cardiovascular: Denies chest pain or edema. [] GI: Denies abdominal pain, nausea, vomiting, bloody stools or diarrhea. [] : Denies dysuria. [] Musculoskeletal: Denies back pain or joint pain. [] Integument: Denies rash. [] Neurologic: Denies headache, focal weakness or sensory changes. [] Endocrine: Denies polyuria or polydipsia. [] Lymphatic: Denies swollen glands. [] Psychiatric: Denies depression or anxiety. [] Heart Score: C/O Chest Pain: N/A Risk Factors: Risk Factors: DM, Current or recent (<one month) smoker, HTN, HLP, family history of CAD, obesity. Risk Scores: Score 0 - 3: 2.5% MACE over next 6 weeks - Discharge Home Score 4 - 6: 20.3% MACE over next 6 weeks - Admit for Clinical Observation Score 7 - 10: 72.7% MACE over next 6 weeks - Early Invasive Strategies Allergies: Allergies: Allergies Coded Allergies Type Severity Reaction Last Updated Verified Penicillins Allergy Intermediate Itching 12/01/19 Yes codeine Allergy Intermediate Itching 08/17/13 Yes Physical Exam: PE: Constitutional: Well developed, well nourished, no acute distress, non-toxic appearance. [] HENT: Normocephalic, atraumatic, oropharynx moist, no oral exudates, nose normal. [] Eyes: PERRLA, EOMI, conjunctiva normal, no discharge. [] Neck: Normal range of motion, no tenderness, supple, no stridor. [] Cardiovascular:Heart rate regular rhythm, no murmur [] Lungs & Thorax: Audible inspiratory expiratory wheezes noted to chest. Patient in no air hunger, conversational in the room. Occasional coarse harsh coughing noted. Produces clear phlegm. Abdomen: Bowel sounds normal, soft, no tenderness, no masses, no pulsatile masses. [] Skin: Warm, dry, no erythema, no rash. [] Back: No tenderness, no CVA tenderness. [] Extremities: No tenderness, no cyanosis, no clubbing, ROM intact, no edema. [] Neurologic: Alert and oriented X 3, normal motor function, normal sensory function, no focal deficits noted. [] Psychologic: Affect normal, judgement normal, mood normal. [] EKG: EKG: [] Radiology/Procedures: Radiology/Procedures: AP chest. HISTORY: Short of air, cough AP view was taken of the chest. There is scarring or atelectasis in the left upper lobe without change from the recent prior study. Heart is upper normal in size. There is no effusion. There is arthritis in both shoulders. No new infiltrates are noted. IMPRESSION: 1. Left upper lobe scarring or atelectasis without change. 2. No new infiltrates. Electronically signed by: Chavez Mcdaniel MD (10/29/2020 5:13 PM) [facility] DICTATED and SIGNED BY: CHAVEZ MCDANIEL MD DATE: 10/29/20 [id number] [] Course & Med Decision Making: Course & Med Decision Making Pertinent Labs and Imaging studies reviewed. (See chart for details) []@1610 Following first duoneb, patient states she feels better, states some less coughing noted. Patient lungs with continued wheezing noted at th is time. SpO2 93% on 2 lpm canulla. normally on room air. Room air SpO2 on arrival to Er 88-90% Reviewed imaging and labs, patient joe in no apparent distress syndrome, agreeable for plan to discharge, patient that she does not want to stay. Providing dose of Solu-Medrol at this time, additional potassium to manage hypoglycemia, and will recommend patient to decrease her albuterol to daily 4 hours. Patient with no further questions or concerns at this time Dragon Disclaimer: Mp Disclaimer: This electronic medical record was generated, in whole or in part, using a voice recognition dictation system. Departure Departure Impression: Primary Impression: COPD exacerbation Additional Impression: Cough Disposition: 01 HOME / SELF CARE / HOMELESS Condition: IMPROVED Referrals: ANNE LUNA MD (PCP) Patient Instructions: Chronic Obstructive Pulmonary Disease Exacerbation, Cough, Adult Additional Instructions: Continue to use your inhaler as prescribed for your breathing. Use it once every 4 hours. Continue your final two doses of Levaquin Continue to take the Mucinex DM for your cough, with plenty of fluids as you have been You can continue to use your tessalon if you found it improved your coughing KIRAN FERNANDEZ APRN Oct 29, 2020 15:39
[2020-10-29] MEDS ORDERED: IPRATRPIUM/ALBUTEROL 0.5/2.5MG 3 ML NEBU. NEB ONE (15:45)
[2020-10-29 16:17] LABS: BASO % 0 % (0-3); EOS % 0 % (0-3); HEMOGLOBIN 14.6 g/dL (12.0-15.5); LYMPH # 3.1 x10^3/uL (1.0-4.8); LYMPH % 26 % (24-48); MEAN CORPUSCULAR HEMOGLOBIN 30 pg (25-35); MEAN CORPUSCULAR HGB CONC 33 g/dL (31-37); MEAN CORPUSCULAR VOLUME 91 fL (79-100); MONO # 0.7 x10^3/uL (0.0-1.1); MONO % 6 % (0-9); NEUT # 7.9 x10^3/uL (1.8-7.7); NEUT % 67 % (31-73); PLATELET COUNT 298 x10^3/uL (140-400); RED BLOOD COUNT 4.85 x10^6/uL (3.50-5.40); RED CELL DISTRIBUTION WIDTH 14.1 % (11.5-14.5); WHITE BLOOD COUNT 11.8 x10^3/uL (4.0-11.0)
[2020-10-29 16:26] VITALS: BP 121/70
[2020-10-29 16:32] LABS: CALCIUM 9.5 mg/dL (8.5-10.1); GFR 65.4; POTASSIUM 3.1 mmol/L (3.5-5.1)
[2020-10-29 16:45] LABS: ALBUMIN 3.7 g/dL (3.4-5.0); ALBUMIN/GLOBULIN RATIO 0.9 (1.0-1.7); TOTAL BILIRUBIN 0.5 mg/dL (0.2-1.0)
[2020-10-29] MEDS ORDERED: ALBUTEROL SULFATE 2.5 MG/3 ML NEBU. NEB ONE (17:00)
[2020-10-29] MEDS ORDERED: methylPREDNISolone SOD SUCC PF 125 MG/2 ML VIAL. IV ONE (17:00)
[2020-10-29] MEDS ORDERED: POTASSIUM CHLORIDE 20 MEQ TABLET.ER. PO ONE (17:00)
--- NOTE | 2020-10-29 17:16 | RAD ---
AP chest. HISTORY: Short of air, cough AP view was taken of the chest. There is scarring or atelectasis in the left upper lobe without campbell e from the recent prior study. Heart is upper normal in size. There is no effusion. There is arthriti s in both shoulders. No new infiltrates are noted. IMPRESSION: 1. Left upper lobe scarring or atelectasis without change. 2. No new infiltrates. Electronically signed by: Chavez Bautista MD (10/29/2020 5:13 PM) [facility]
== END 2020-10-29 18:46 | disposition home or self-care (01) ==
LOC: ER 14:46
DX: J44.1 Chronic obstructive pulmonary disease with (acute) exacerbation (principal); K21.9 Gastro-esophageal reflux disease without esophagitis; E78.00 Pure hypercholesterolemia, unspecified; I10 Essential (primary) hypertension; Z88.0 Allergy status to penicillin; Z88.5 Allergy status to narcotic agent
CPT/HCPCS: 36415; 71045; 80053; 83605; 85025; 94640; 96374; 99284; J2930; J7613

== ENCOUNTER → 2020-11-21 | Outpatient (CLI) | payer MEDICARE ==
[2020-10-29 16:26] VITALS: BP 121/70
[~2020-11-21] MED LIST changes: +CONTRAST GIVEN. MC PRN; +IOHEXOL 240 MG/ML 50ML VIAL. PO ONE
--- NOTE | 2020-11-21 15:41 | RAD ---
CT CHEST_ABDOMEN_ AND PELVIS WITHOUT CONTRAST History: Weight loss, lymphoma. Comparison: CT chest 04/24/2020, CT chest abdomen and pelvis 09/12/2019. Technique: CT of the chest, abdomen and pelvis with oral contrast only. Findings: Pulmonary arteries: Normal caliber Aorta and great vessels: Ascending aortic ectasia measuring 4.3 cm. Moderate atherosclerotic calcific ation. Heart: The heart is normal in size. There is no pericardial effusion. Moderate coronary artery calcif ication. Thyroid: No significant abnormalities. Mediastinum and mike: No mediastinal masses or adenopathy is seen. Esophagus: Patulous distal esophagus containing air-contrast level. Airways, Lungs, Pleura: Patent airways. There are new panlobar diffuse groundglass opacities. Bandlik e consolidation/scarring in the left upper lobe is unchanged from comparisons. General abdomen: No ascites. No free air. Liver : Normal in size and attenuation. Redemonstrated multiple hepatic cysts. Gallbladder/Biliary Tree: Decompressed gallbladder. No intrahepatic or extrahepatic biliary ductal di latation. Pancreas: Normal. Spleen: Normal in size and attenuation. Adrenal glands: Normal. Kidneys: No hydronephrosis or hydroureter. No renal masses identified. Gastrointestinal: Unremarkable. Lymph nodes: No lymphadenopathy. Vessels: Unremarkable. Pelvic Organs: Status post hysterectomy. No pelvic masses. The bladder is unremarkable. Soft tissues: Unremarkable. Bones: No acute or aggressive lesions. Degenerative changes of the spine. Impression: 1. New diffuse amador lobar groundglass opacities for which differential includes respiratory infection , pulmonary edema, hypersensitivity pneumonitis, drug toxicity, radiation pneumonitis. 2. Stable bandlike opacity in the left upper lobe. No new pulmonary nodules, chest, abdomen or pelvi c adenopathy. ------ Exposure: One or more of the following individualized dose reduction techniques were utilized for thi s examination: 1. Automated exposure control 2. Adjustment of the mA and/or kV according to patient size 3. Use of iterative reconstruction technique. Electronically signed by: Chandrakant Galvin MD (11/21/2020 3:39 PM) [facility]
== END ==
LOC: CT 09:02
PROVIDERS: ATTEND Internal Medicine
DX: T50.901A Poisoning by unspecified drugs, medicaments and biological substances, accidental (unintentional), initial encounter (principal); J81.1 Chronic pulmonary edema; J18.9 Pneumonia, unspecified organism; J98.8 Other specified respiratory disorders; R63.4 Abnormal weight loss; K76.89 Other specified diseases of liver; I70.0 Atherosclerosis of aorta; I77.810 Thoracic aortic ectasia; I25.10 Atherosclerotic heart disease of native coronary artery without angina pectoris; Z85.72 Personal history of non-Hodgkin lymphomas; Z90.710 Acquired absence of both cervix and uterus; X58.XXXA Exposure to other specified factors, initial encounter; Y93.89 Activity, other specified; Y92.89 Other specified places as the place of occurrence of the external cause; Y99.8 Other external cause status
CPT/HCPCS: 71250; 74176; Q9966

== ENCOUNTER → 2021-05-26 | Outpatient (CLI) | payer MEDICARE ==
[~2021-05-26] MED LIST changes: +ACET500T68 PO; +ASPI325T11 PO; +BIOT5000 PO; +CHOL10004 PO; -CLIN150C15 PO; +CLIN150C16 PO; -CONTRAST GIVEN. MC PRN; +DOCU50CA9 PO; -DOXY100C2 PO; +DOXY100C3 PO; -IOHEXOL 240 MG/ML 50ML VIAL. PO ONE; +MAGN400T48 PO; -MAGN400T5 PO; +METO50TA4 PO; +OXYC5CAP PO; +OXYC5TAB4 PO; +POLY119P4 PO; +SENN-209 PO; +VIT1CAPS12 PO; +prevagen PO
[2021-05-26 09:49] LABS: PROTHROMBIN TIME PATIENT 13.5 SEC (11.7-14.0)
[2021-05-26 09:53] LABS: BASO % 0 % (0-3); EOS % 1 % (0-3); HEMOGLOBIN 13.7 g/dL (12.0-15.5); LYMPH # 2.2 x10^3/uL (1.0-4.8); LYMPH % 42 % (24-48); MEAN CORPUSCULAR HEMOGLOBIN 31 pg (25-35); MEAN CORPUSCULAR HGB CONC 33 g/dL (31-37); MEAN CORPUSCULAR VOLUME 92 fL (79-100); MONO # 0.4 x10^3/uL (0.0-1.1); MONO % 8 % (0-9); NEUT # 2.6 x10^3/uL (1.8-7.7); NEUT % 49 % (31-73); PLATELET COUNT 233 x10^3/uL (140-400); RED BLOOD COUNT 4.48 x10^6/uL (3.50-5.40); WHITE BLOOD COUNT 5.2 x10^3/uL (4.0-11.0)
[2021-05-26 10:03] LABS: ALBUMIN 3.1 g/dL (3.4-5.0); CALCIUM 8.2 mg/dL (8.5-10.1); CREATININE 0.7 mg/dL (0.6-1.0); GFR 98.4
[2021-05-26 10:39] LABS: POTASSIUM 3.8 mmol/L (3.5-5.1)
--- NOTE | 2021-05-26 12:45 | EKG ---
[facility] [address] [place] [address] Test Date: 2021-05-26 Test Time: 12:29:11 Pat Name: REYNALDO RICO Department: Room: Gender: F Quality Assurance Analyst: J : 1945 Requested By: STEVE THOMAS Order Number: [id number] Reading MD: Jordan Jorge MD Measurements Intervals [place] Rate: 65 P: 31 WI: 164 QRS: -38 QRSD: 92 T: 92 QT: 414 QTc: 436 Interpretive Statements SINUS RHYTHM LAD LVH NON-SPECIFIC ST/T CHANGES Electronically Signed On 05-26-2021 16:14:09 COSTUME RENTAL CLERK by Jordan Jorge MD
[2021-05-27 02:09] LABS: HEMOGLOBIN A1C 5.8 % (4.8-5.6)
== END ==
LOC: SURGPAT 12:30
PROVIDERS: ATTEND Orthopaedic Surgery
DX: Z01.818 Encounter for other preprocedural examination (principal); M17.11 Unilateral primary osteoarthritis, right knee; E78.5 Hyperlipidemia, unspecified; I10 Essential (primary) hypertension; D62 Acute posthemorrhagic anemia; M79.7 Fibromyalgia; Z79.899 Other long term (current) drug therapy
CPT/HCPCS: 36415; 80048; 82040; 82306; 83036; 85025; 85610; 85651; 85730; 87641; 93005

== ENCOUNTER 2021-06-16 05:56 | Observation (INO) | payer MEDICARE ==
[2021-06-05 11:46] VITALS: BP 150/88
[~2021-06-16] VITALS: Ht 154.9 cm; Wt 84.0 kg
[2021-06-16] VITALS (9 sets, daily range): BP systolic 100–144; BP diastolic 61–86
[~2021-06-16 05:56] MED LIST changes: -ACET500T68 PO; -ASPI325T11 PO; -CHOL10004 PO; -METO50TA4 PO; -OXYC5CAP PO; -OXYC5TAB4 PO; -SENN-209 PO
[2021-06-16] MEDS ORDERED: TRANEXAMIC ACID 1,000 MG in IV NS 50ML -- 1ST BAG INJ ONE (06:00)
[2021-06-16] MEDS ORDERED: MELOXICAM 7.5 MG TABLET PO PRN (06:00)
[2021-06-16] MEDS ORDERED: HYDROmorphone 2 MG/ML INJ. IVP PRN (06:00)
[2021-06-16] MEDS ORDERED: GABAPENTIN 300 MG CAPSULE. PO PRN (06:00)
[2021-06-16] MEDS ORDERED: PROCHLORPERAZINE 10 MG/2 ML VIAL. IVP PRN (06:00)
[2021-06-16] MEDS ORDERED: IV RINGERS,LACTATED 1000ML 1,000 ML IV SCH (06:00)
[2021-06-16] MEDS ORDERED: ACETAMINOPHEN 500 MG TABLET PO PRN (06:00)
[2021-06-16] MEDS ORDERED: CLINDAMYCIN 900MG PREMIX 50 ML IV PRN (06:00)
[2021-06-16] MEDS ORDERED: fentaNYL PF VIAL 100 MCG/2 ML VIAL IVP PRN ×2 (06:00→09:45)
[2021-06-16] MEDS ORDERED: CLINDAMYCIN PREMIX 900 MG/50 ML BAG IV ONE (08:00)
[2021-06-16] MEDS ORDERED: TRANEXAMIC ACID 1,000 MG in IV NS 50ML -- 2ND BAG INJ ONE (08:00)
--- NOTE | 2021-06-16 08:02 | HP ---
DATE OF SERVICE: 06/16/2021 ADMIT DATE: 06/16/2021 REASON FOR HERE AT THE HOSPITALIZATION: Right knee pain, severe. BRIEF HISTORY: The patient is here today with complaints of right knee pain. This has been unremitting to conservative therapies involving injections, ice, elevation, modifying her activities, etc. Nothing is significantly helping her symptoms overall. Therefore, we have talked with her at length about treatment options and she wishes to proceed with a right knee arthroplasty. Those are her only complaints at this point. REVIEW OF SYSTEMS: Unremarkable other than her current symptoms of musculoskeletal symptoms. MEDICAL HISTORY: Remarkable for hypertension, hyperlipidemia and lung cancer. PAST SURGICAL HISTORY: Hysterectomy. HOSPITALIZATIONS: No significant hospitalizations to this point. FAMILY HISTORY: Unavailable. SOCIAL HISTORY: Never a tobacco user and no alcohol use at this point. MEDICATIONS: Include losartan, sulindac, rosuvastatin, metoprolol, amlodipine, esomeprazole, diazepam p.r.n. MEDICATION ALLERGIES: PENICILLIN. PHYSICAL EXAMINATION: She is 61 inches tall. She is 208 pounds. She has a varus deformity to the right knee. This is not correctable completely to neutral. She lacks full extension by 5 degrees and can only flex up to 95. There is no significant atrophy of musculature, but there is pain with palpation over the medial and lateral compartments with positive Apley's test in the medial and lateral compartments and a lot of apprehension of the patellofemoral joint throughout the arc of motion. Distal neurovascular status; however, is fully intact. IMPRESSION: 1. Degenerative joint disease, right knee. 2. Medical history as noted. PLAN: At this time, she has already seeing anesthesia. She has already been cleared medically for the procedure for right total knee arthroplasty, which she wishes to do. We have therefore gone over the risks, complications as well as benefits and expectations of surgery, postoperative protocol and followup and all questions were answered to her satisfaction today. We will proceed as soon as possible this morning. AUGIE/KEVIN SMALLWOOD: Gina TID: [id number]
[2021-06-16] MEDS ORDERED: PROPOFOL 10 MG/ML (20ML) VIAL. IV ONE (08:12)
[2021-06-16] MEDS ORDERED: ONDANSETRON PF 4 MG/2 ML VIAL. ONE (08:12)
[2021-06-16] MEDS ORDERED: FAMOTIDINE 20 MG/2 ML VIAL ONE (08:12)
[2021-06-16] MEDS ORDERED: DEXAMETHASONE SOD PHOS 4 MG/ML VIAL ONE (08:12)
[2021-06-16] MEDS ORDERED: fentaNYL PF VIAL 100 MCG/2 ML VIAL ONE ×2 (08:12→11:11)
[2021-06-16] MEDS ORDERED: MIDAZOLAM HCL/PF 2 MG/2 ML VIAL. ONE (08:13)
[2021-06-16] MEDS ORDERED: LIDOCAINE 2% PF 5 ML VIAL. ONE (08:13)
[2021-06-16] MEDS: TV=62ml MORPHINE 5 MG, KETOROLAC 30 MG, ROPIV, EPI INT ART ONE ×2 (08:21→09:57)
[2021-06-16] MEDS ORDERED: PHENYLEPHRINE in 0.9% NACL PF 1 MG/10 ML SYRINGE. IV ONE (09:42)
[2021-06-16] MEDS ORDERED: IV DEXTROSE 5% 250 ML BAG. IV PRN (09:45)
[2021-06-16] MEDS ORDERED: DEXTROSE 50% 25 GM / 50ML DISP.SYRIN. IV PRN (09:45)
[2021-06-16] MEDS ORDERED: ZOLPIDEM 5 MG TABLET. PO PRN (09:45)
[2021-06-16] MEDS ORDERED: CALCIUM CARBONATE 500 MG TAB.CHEW PO PRN (09:45)
[2021-06-16] MEDS ORDERED: MORPHINE SULFATE 2 MG/ML INJ. IVP PRN (09:45)
[2021-06-16] MEDS ORDERED: PROCHLORPERAZINE 5 MG TABLET. PO PRN (09:45)
[2021-06-16] MEDS ORDERED: METOCLOPRAMIDE HCL 10 MG/2 ML VIAL. IVP PRN (09:45)
[2021-06-16] MEDS ORDERED: diphenhydrAMINE 50 MG/ML VIAL IVP PRN (09:45)
[2021-06-16] MEDS ORDERED: 0.9 % SODIUM CHLORIDE 10 ML DISP.SYRIN. IV PRN (09:45)
[2021-06-16] MEDS ORDERED: TRANEXAMIC ACID in NS IVPB 50 ML ONE (10:23)
[2021-06-16] MEDS: fentaNYL PF VIAL 100 MCG/2 ML VIAL IVP PRN ×2 (11:13→11:36)
--- NOTE | 2021-06-16 11:26 | RAD ---
EXAM: Right knee, 2 views. HISTORY: Arthroplasty. COMPARISON: None. FINDINGS: 2 views of the right knee are obtained. There is a right knee arthroplasty in expected posi tion. There is soft tissue gas and joint fluid due to recent surgery. IMPRESSION: Right knee arthroplasty in expected position, with surrounding soft tissue changes due to recent surgery. Electronically signed by: Judi Soares MD (06/16/2021 11:24 AM) [id number]
--- NOTE | 2021-06-16 11:47 | OP ---
DATE OF SURGERY: 06/16/2021 PREOPERATIVE DIAGNOSIS: Severe degenerative joint disease, right knee. POSTOPERATIVE DIAGNOSIS: Severe degenerative joint disease, right knee. PROCEDURE: Right total knee arthroplasty. SURGEON: Khanh Fuentes Jr, DO CARPET INSPECTOR: Trevor Santos. ANESTHESIA: General. COMPLICATIONS: None. ESTIMATED BLOOD LOSS: 50 mL DESCRIPTION OF PROCEDURE: The patient was taken to the operative suite, given a general anesthetic. Right lower extremity had a tourniquet placed; however, was not inflated. Right lower extremity was then prepped and draped in a sterile fashion. Incision was made through skin and subcutaneous tissues down to the extensor mechanism. Superficial bleeding was coagulated using a Bovie knife. Medial parapatellar incision was then made. Then, the knee joint was noted to have severe changes in all compartments of the knee. The patella was everted, measured and cut to the appropriate size, which was a 29. The drill holes were made through the appropriate guide at that point. The knee was taken into a flexed position. The drill was placed in the distal femur and the intramedullary guide was placed in the appropriate position and the distal cutting guide was placed on the distal femur. This was held with pins and the appropriate cut was made for the distal cut. The sizing guide was placed on the distal femur, size 4 was noted to be the most appropriate size for the femur and the femoral component. Drill holes were made through this guide at appropriate rotation for the femur. The 4-in-1 guide was then affixed to the distal femur. The anterior, posterior and the chamfer cuts were then made. Excess bone was removed. The external tibial guide was placed in appropriate position and orientation in the tibia. After medial and lateral meniscal remnants were removed as well as the ACL, PCL remained intact. The sizing revealed this to be good positioning overall. Therefore, the cut was made in the proximal tibia. This was noted to be a good flush cut. Trials were then placed. This was taken through a range of motion. There was proper tracking of the patellofemoral joint. This was equal as far as flexion and extension gaps and this was rotating appropriately, motion was appropriate up to 125 degrees with full extension possible. This was marked for rotation on the tibial side and the drill was placed through the holes in the femoral trial for positioning of the femur. This was then removed and after the tibia was held with pins, appropriate retraction was placed, this was drilled to the appropriate depth and then the keel was placed at the appropriate depth as well. The trial was then removed, this was copiously irrigated and suctioned dry. The Aquamantys was used throughout the remainder of this while the irrigation was going on. After that, I irrigated further. Following this, cement was mixed on the back table. Cement was then carefully placed on the cut surfaces. The tibia was impacted first, followed by the femur. This was held in extension until hardening of cement with an 11 mm poly, which was noted to be the most appropriate size for balancing in flexion and extension. This was noted to be very stable and tracking of the patellofemoral joint was noted to be excellent. Trial poly was then removed, this was irrigated again and the polyethylene component was placed and impacted and noted to be stable and secured within the tibial component. This was then taken back through range of motion and again noted to be stable, irrigated again and suctioned dry. Betadine was then used after this to further cleanse this area and was thoroughly irrigated again to remove this. Tourniquet was deflated with good return of pulses and capillary refill. No excessive bleeding was noted. The remainder of some of the smaller bleeding was coagulated using a Bovie knife and then the medial parapatellar incision was closed using a running subcuticular stitch. After this was noted to be secured and completely closed as far as the retinacular incision, superficial tissues and skin was reapproximated. Local was placed within the capsule prior to closure. The patient was then taken from the operative bed to the postoperative bed, taken to the PACU in stable condition. VITALY SMALLWOOD: Gina TID: [id number]
[2021-06-16] MEDS: MORPHINE SULFATE 2 MG/ML INJ. IVP PRN ×2 (11:59→12:12)
[2021-06-16] MEDS: ONDANSETRON ODT 4 MG TAB.RAPDIS. PO SCH ×3 (12:00→21:08)
[2021-06-16] MEDS: ONDANSETRON PF 4 MG/2 ML VIAL. IVP SCH ×3 (12:00→21:08)
[2021-06-16] MEDS ORDERED: ASPI325T11 PO (13:13)
[2021-06-16] MEDS ORDERED: diazePAM 5 MG TABLET PO PRN (14:15)
--- NOTE | 2021-06-16 14:28 | PDOC ---
Provider Note Date of Service: DATE: 06/16/21 TIME: 14:28 Provider Note consult dictated # [id number] Justifications for Admission Other Justification ANNE LUNA MD Jun 16, 2021 14:28
[2021-06-16] MEDS: SENNOSIDES/DOCUSATE 8.6/50MG TABLET. PO SCH ×2 (14:29→21:07)
[2021-06-16] MEDS: CLINDAMYCIN 900MG PREMIX 50 ML IV SCH ×2 (14:30→21:06)
[2021-06-16] MEDS: oxyCODONE IR 5 MG TABLET PO PRN ×2 (18:01→22:50)
[2021-06-16] MEDS: POLYETHYLENE GLYCOL 3350 17 GM PACKET. PO SCH (18:01)
[2021-06-16] MEDS: ACETAMINOPHEN 500 MG TABLET PO SCH ×2 (18:03→21:06)
[2021-06-16] MEDS: IV NORMAL SALINE 1000ML BAG 1,000 ML IV SCH (18:04)
--- NOTE | 2021-06-16 20:36 | CONS ---
DATE OF CONSULTATION: 06/16/2021 LOCATION: She is in room 460. ATTENDING PHYSICIAN: Dr. Fuentes. REASON FOR CONSULTATION: Medical management. HISTORY OF PRESENT ILLNESS: The patient is a 76-year-old -[place] female who was admitted to [facility] on 06/16/2021 for same day right total knee arthroplasty for osteoarthritis. She tolerated the procedure well as expected postoperative pain. She is alert. She has not had a bowel movement today and would like to take her daily MiraLax. She does have a history of hypertension, for which she takes amlodipine 5 mg every day and also takes losartan 50 mg every day, metoprolol succinate 50 mg every day. She also has a history of hyperlipidemia, for which she takes Crestor 10 mg every day and also has a history of acid reflux, for which she takes Nexium every day. In addition, she has fibromyalgia and notes that sulindac 150 mg b.i.d. has helped a lot for that and she has declined to take Lyrica in the past. ALLERGIES AND INTOLERANCES: INCLUDE PENICILLIN AND CODEINE. SHE ALSO HAS SOME INTOLERANCES TO ELAVIL OR AUGMENTIN CAUSED VOMITING; PROBLEMS WITH LEXAPRO, IMIPRAMINE, SIMVASTATIN, VERAPAMIL, AND TRAMADOL CAUSES SOME GI SIDE EFFECTS. MEDICATIONS PRIOR TO ADMISSION: Include amlodipine 5 mg every day and she was on sulindac 150 mg b.i.d., which was probably held prior to the surgery, hydrocodone 5/325 one b.i.d. p.r.n., losartan 50 mg every day, metoprolol succinate 50 mg every day, MiraLax 17 grams daily, Senokot-S 2 tablets every day, Nexium 20 mg every day, Crestor 10 mg every day, Valium 5 mg at bedtime p.r.n., and vitamin D at 1000 units every day. 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 Also has a history of non-Hodgkin's lymphoma in the past, treated with radiation and chemotherapy, in remission. Also had a hysterectomy in the past and bilateral benign breast biopsies, tonsillectomy, appendectomy and a rectocele and cystocele repair in the past. SOCIAL HISTORY: She does not drink alcohol, nor she smoke cigarettes. FAMILY HISTORY: Noncontributory. REVIEW OF SYSTEMS: GENERAL: She denies any fever, chills or sweats in last 3 days. CARDIOVASCULAR: No chest pain. PULMONARY: No cough or shortness of breath. GASTROINTESTINAL: She has had a bowel movement today. ENDOCRINE: No diabetes mellitus. SKIN: No rashes. Rest of review of systems reviewed and are negative except as stated in history of present illness. PHYSICAL EXAMINATION: VITAL SIGNS: Temperature 97.3 degrees, heart rate 69, respiratory rate is 18, blood pressure 126/71. She is currently on oxygen 3 liters per nasal cannula. Last oxygen saturation was 97%. HEENT: Eyes, gaze is conjugate. Extraocular muscles are intact. Mouth: Tongue is midline. NECK: There is no cervical lymphadenopathy or thyroid enlargement. CARDIAC: Reveals an S1, S2. There is no S3 or murmur. LUNGS: Clear. ABDOMEN: Soft with no hepatosplenomegaly, masses or tenderness. LOWER EXTREMITIES: She has got an Minh wrap over the right knee. Left lower extremity without edema. SKIN: No rashes. NEUROLOGIC: She is coherent with no focal weakness in arms or legs. SKIN: No rashes. LABORATORY TESTS: Preop were reviewed prior to surgery and they were fine as was her EKG and chest x-ray. She had an x-ray postop involving the right knee showing a right total knee arthroplasty and surrounding soft tissue changes related to recent surgery. ASSESSMENT: 1. Right total knee arthroplasty for osteoarthritis. 2. Osteoarthritis. 3. Hypertension. 4. Hyperlipidemia. 5. Fibromyalgia. 6. History of adenocarcinoma of the right upper lobe, treated with radiation therapy. Currently, in remission. 7. History of non-Hodgkin's lymphoma in the past, treated with chemo and radiation therapy, currently in remission. PLAN: At this time is to resume her home medications for hypertension including amlodipine, losartan and metoprolol and put blood pressure parameters, to hold these medicines if her blood pressure and heart rate is too low. We will substitute the Crestor with atorvastatin for hyperlipidemia. She is on Mobic instead of the sulindac as the sulindac is non-formulary. Laboratory tests including a CBC and a BMP will be checked tomorrow. We will order MiraLax and Senokot S daily for her bowels and discontinue the Ambien and she would like to take Valium 5 mg at bedtime p.r.n. She has tolerated hydrocodone in the past without problems. We will continue with order the Protonix instead of the Nexium for acid reflux disease as Nexium is nonformulary. We will decrease the Tylenol to 500 mg 1 tablet q.i.d. instead of 1000 mg q.i.d., so she does not reach her Tylenol limit. Analgesics have been ordered by the orthopedist. Thank you very much Dr. Fuentes for this consultation. ALBAN/RICHARD/GRAZYNA DR: ALBAN/josé TID: [id number]
[2021-06-16] MEDS: ATORVASTATIN CALCIUM 20 MG TABLET PO SCH (21:07)
[2021-06-17] VITALS (7 sets, daily range): BP systolic 94–131; BP diastolic 50–69
[2021-06-17] MEDS: CLINDAMYCIN 900MG PREMIX 50 ML IV SCH (03:03)
[2021-06-17] MEDS: ONDANSETRON ODT 4 MG TAB.RAPDIS. PO SCH (05:34)
[2021-06-17] MEDS: GABAPENTIN 100 MG CAPSULE. PO SCH ×3 (05:34→20:32)
[2021-06-17] MEDS: PANTOPRAZOLE 40 MG TABLET.DR. PO SCH (05:34)
[2021-06-17] MEDS: ONDANSETRON PF 4 MG/2 ML VIAL. IVP SCH (05:39)
[2021-06-17] MEDS ORDERED: MAGNESIUM HYDROXIDE 2,400 MG/30 ML ORAL.SUSP. PO PRN (06:00)
[2021-06-17] MEDS: oxyCODONE IR 5 MG TABLET PO PRN ×4 (06:04→18:03)
[2021-06-17 06:24] LABS: BASO % 0 % (0-3); EOS % 0 % (0-3); HEMATOCRIT 35.7 % (36.0-47.0); HEMOGLOBIN 11.8 g/dL (12.0-15.5); LYMPH # 1.9 x10^3/uL (1.0-4.8); LYMPH % 21 % (24-48); MEAN CORPUSCULAR HEMOGLOBIN 31 pg (25-35); MEAN CORPUSCULAR HGB CONC 33 g/dL (31-37); MEAN CORPUSCULAR VOLUME 92 fL (79-100); MONO # 0.8 x10^3/uL (0.0-1.1); MONO % 9 % (0-9); NEUT # 6.1 x10^3/uL (1.8-7.7); NEUT % 70 % (31-73); PLATELET COUNT 199 x10^3/uL (140-400); RED BLOOD COUNT 3.86 x10^6/uL (3.50-5.40); RED CELL DISTRIBUTION WIDTH 14.7 % (11.5-14.5); WHITE BLOOD COUNT 8.7 x10^3/uL (4.0-11.0)
[2021-06-17 06:44] LABS: CALCIUM 7.9 mg/dL (8.5-10.1); CREATININE 0.7 mg/dL (0.6-1.0); GFR 98.4; POTASSIUM 3.6 mmol/L (3.5-5.1)
[2021-06-17] MEDS: MULTIVITAMIN with MINERAL TABLET. PO SCH (08:54)
[2021-06-17] MEDS: SENNOSIDES/DOCUSATE 8.6/50MG TABLET. PO SCH ×2 (08:54→20:32)
[2021-06-17] MEDS: ACETAMINOPHEN 500 MG TABLET PO SCH ×4 (08:54→20:32)
[2021-06-17] MEDS: POLYETHYLENE GLYCOL 3350 17 GM PACKET. PO SCH (08:54)
[2021-06-17] MEDS: MELOXICAM 7.5 MG TABLET PO SCH (08:55)
[2021-06-17] MEDS: CHOLECALCIFEROL (VITAMIN D3) 1,000 UNIT TABLET PO SCH (08:55)
[2021-06-17] MEDS: METOPROLOL SUCC 24HR ER 50 MG TAB.ER.24H. PO SCH (09:00)
[2021-06-17] MEDS ORDERED: LOSARTAN POTASSIUM 50 MG TABLET. PO SCH (09:00)
[2021-06-17] MEDS ORDERED: ACETAMINOPHEN 500 MG TABLET PO SCH (09:00)
[2021-06-17] MEDS: IV NORMAL SALINE 1000ML BAG 1,000 ML IV SCH (09:45)
--- NOTE | 2021-06-17 10:11 | PDOC ---
PROGRESS NOTES Date of Service DATE: 06/17/21 TIME: 10:09 Subjective Subjective lab reviewed. systolic bp 110 and bp meds held this morning. bp parameters for bp meds written. discussed with her nurse. feels well. alert. pain controlled. no BM in 2 days. Objective Objective Vital Signs Date Time Temp Pulse Resp B/P (MAP) Pulse Ox O2 Delivery O2 Flow Rate FiO2 06/17/21 09:00 66 20 110/66 (81) 06/17/21 08:00 Room Air 06/17/21 06:34 98 3.0 06/17/21 06:14 97.9 97.9 Intake and Output 06/17/21 07:00 Intake Total 3000 ml Output Total 1850 ml Balance 1150 ml Intake Oral 1450 ml IV Total 1550 ml Output Urine Total 1800 ml Estimated Blood Loss 50 ml Physical Exam Abdomen: Soft Heart: Regular rate, Normal S1, Normal S2 Extremities: No edema, Other (bahman wrap right knee) General: Alert HEENT: Atraumatic Lungs: Clear to auscultation Neck: Supple Neuro: Normal speech Psych/Mental Status: Mental status NL Skin: No rashes Assessment Assessment 1. Right total knee arthroplasty for osteoarthritis. 2. Osteoarthritis. 3. Hypertension. 4. Hyperlipidemia. 5. Fibromyalgia. 6. History of adenocarcinoma of the right upper lobe, treated with radiation therapy. Currently, in remission. 7. History of non-Hodgkin's lymphoma in the past, treated with chemo and radiation therapy, currently in remission. Plan Plan of Care continue aspirin bid for dvt prophylaxis continue bp meds but with bp parameters continue miralax and senna-s lactulose later today if necessary PT Comment Review of Relevant I have reviewed the following items bernard (where applicable) has been applied. Labs Laboratory Tests Test 06/16/21 06:15 06/17/21 05:50 POC SARS CoV-2 Antigen Negative (NEGATIVE) White Blood Count 8.7 x10^3/uL (4.0-11.0) Red Blood Count 3.86 x10^6/uL (3.50-5.40) Hemoglobin 11.8 g/dL (12.0-15.5) Hematocrit 35.7 % (36.0-47.0) Mean Corpuscular Volume 92 fL (79-100) Mean Corpuscular Hemoglobin 31 pg (25-35) Mean Corpuscular Hemoglobin Concent 33 g/dL (31-37) Red Cell Distribution Width 14.7 % (11.5-14.5) Platelet Count 199 x10^3/uL (140-400) Neutrophils (%) (Auto) 70 % (31-73) Lymphocytes (%) (Auto) 21 % (24-48) Monocytes (%) (Auto) 9 % (0-9) Eosinophils (%) (Auto) 0 % (0-3) Basophils (%) (Auto) 0 % (0-3) Neutrophils # (Auto) 6.1 x10^3/uL (1.8-7.7) Lymphocytes # (Auto) 1.9 x10^3/uL (1.0-4.8) Monocytes # (Auto) 0.8 x10^3/uL (0.0-1.1) Eosinophils # (Auto) 0.0 x10^3/uL (0.0-0.7) Basophils # (Auto) 0.0 x10^3/uL (0.0-0.2) Sodium Level 140 mmol/L (136-145) Potassium Level 3.6 mmol/L (3.5-5.1) Chloride Level 101 mmol/L (98-107) Carbon Dioxide Level 32 mmol/L (21-32) Anion Gap 7 (6-14) Blood Urea Nitrogen 14 mg/dL (7-20) Creatinine 0.7 mg/dL (0.6-1.0) Estimated GFR (Cockcroft-Gault) 98.4 Glucose Level 96 mg/dL (70-99) Calcium Level 7.9 mg/dL (8.5-10.1) Laboratory Tests Test 06/17/21 05:50 White Blood Count 8.7 x10^3/uL (4.0-11.0) Red Blood Count 3.86 x10^6/uL (3.50-5.40) Hemoglobin 11.8 g/dL (12.0-15.5) Hematocrit 35.7 % (36.0-47.0) Mean Corpuscular Volume 92 fL (79-100) Mean Corpuscular Hemoglobin 31 pg (25-35) Mean Corpuscular Hemoglobin Concent 33 g/dL (31-37) Red Cell Distribution Width 14.7 % (11.5-14.5) Platelet Count 199 x10^3/uL (140-400) Neutrophils (%) (Auto) 70 % (31-73) Lymphocytes (%) (Auto) 21 % (24-48) Monocytes (%) (Auto) 9 % (0-9) Eosinophils (%) (Auto) 0 % (0-3) Basophils (%) (Auto) 0 % (0-3) Neutrophils # (Auto) 6.1 x10^3/uL (1.8-7.7) Lymphocytes # (Auto) 1.9 x10^3/uL (1.0-4.8) Monocytes # (Auto) 0.8 x10^3/uL (0.0-1.1) Eosinophils # (Auto) 0.0 x10^3/uL (0.0-0.7) Basophils # (Auto) 0.0 x10^3/uL (0.0-0.2) Sodium Level 140 mmol/L (136-145) Potassium Level 3.6 mmol/L (3.5-5.1) Chloride Level 101 mmol/L (98-107) Carbon Dioxide Level 32 mmol/L (21-32) Anion Gap 7 (6-14) Blood Urea Nitrogen 14 mg/dL (7-20) Creatinine 0.7 mg/dL (0.6-1.0) Estimated GFR (Cockcroft-Gault) 98.4 Glucose Level 96 mg/dL (70-99) Calcium Level 7.9 mg/dL (8.5-10.1) Medications Current Medications Fentanyl Citrate (Fentanyl 2ml Vial) 25 mcg PRN Q5MIN PRN IVP MILD PAIN 1-3; Start 06/16/21 at 06:00; Stop 06/16/21 at 14:35; Status DC Fentanyl Citrate (Fentanyl 2ml Vial) 50 mcg PRN Q5MIN PRN IVP MODERATE PAIN 4-6 Last administered on 06/16/21at 11:36; Start 06/16/21 at 06:00; Stop 06/16/21 at 14:35; Status DC Morphine Sulfate (Morphine Sulfate) 1 mg PRN Q10MIN PRN IVP SEVERE PAIN 7-10 Last administered on 06/16/21at 12:12; Start 06/16/21 at 06:00; Stop 06/16/21 at 14:35; Status DC Ringer's Solution 1,000 ml @ 30 mls/hr Q24H IV Last administered on 06/16/21at 06:45; Start 06/16/21 at 06:00; Stop 06/16/21 at 17:59; Status DC Hydromorphone HCl (Dilaudid) 0.5 mg PRN Q10MIN PRN IVP SEVERE PAIN 7-10, 2nd CHOICE; Start 06/16/21 at 06:00; Stop 06/16/21 at 14:35; Status DC Prochlorperazine Edisylate (Compazine) 5 mg PACU PRN PRN IVP NAUSEA, MRX1; Start 06/16/21 at 06:00; Stop 06/16/21 at 14:35; Status DC Morphine Sulfate 5 mg/Ketorolac Tromethamine 30 mg/Ropivacaine 60 ml/Epinephrine HCl 0.5 mg/ Miscellaneous 63 ml @ 63 mls/hr 1X PERIOP ONCE INT ART Last administered on 06/16/21at 09:57; Start 06/16/21 at 06:00; Stop 06/16/21 at 06:59; Status DC Meloxicam (Mobic) 15 mg 1X PREOP PRN PO PRIOR TO PROCEDURE Last administered on 06/16/21at 06:45; Start 06/16/21 at 06:00; Stop 06/16/21 at 14:36; Status DC Gabapentin (Neurontin) 300 mg 1X PREOP PRN PO PRIOR TO PROCEDURE Last administered on 06/16/21at 06:45; Start 06/16/21 at 06:00; Stop 06/16/21 at 14:36; Status DC Acetaminophen (Tylenol) 1,000 mg 1X PREOP PRN PO PRIOR TO PROCEDURE Last administered on 06/16/21at 06:45; Start 06/16/21 at 06:00; Stop 06/16/21 at 14:36; Status DC Clindamycin Phosphate 50 ml @ 100 mls/hr 1X PREOP PRN IV PRIOR TO PROCEDURE; Start 06/16/21 at 06:00; Stop 06/16/21 at 14:26; Status DC Tranexamic Acid 50 ml @ 50 mls/hr 1X PERIOP ONCE INJ ; Start 06/16/21 at 06:00; Stop 06/16/21 at 06:59; Status DC Tranexamic Acid 50 ml @ 50 mls/hr 1X PERIOP ONCE INJ Last administered on 06/16/21at 10:28; Start 06/16/21 at 08:00; Stop 06/16/21 at 08:59; Status DC Morphine Sulfate (Morphine Sulfate) 2 mg PRN Q1HR PRN IVP PAIN-SEE COMMENTS Last administered on 06/16/21at 14:32; Start 06/16/21 at 09:45 Fentanyl Citrate (Fentanyl 2ml Vial) 25 mcg PRN Q1HR PRN IVP PAIN, 2nd CHOICE; Start 06/16/21 at 09:45 Diphenhydramine HCl (Benadryl) 25 mg PRN Q6HRS PRN IVP ITCHING; Start 06/16/21 at 09:45 Multivitamins (Thera M Plus) 1 tab DAILY PO Last administered on 06/17/21at 08:54; Start 06/17/21 at 09:00 Senna/Docusate Sodium (Senna Plus) 1 tab DAILY PO Last administered on 06/17/21at 08:54; Start 06/16/21 at 12:00 Sodium Chloride 1,000 ml @ 40 mls/hr Q24H IV Last administered on 06/16/21at 18:04; Start 06/16/21 at 09:45 Clindamycin Phosphate 50 ml @ 100 mls/hr Q6H IV Last administered on 06/17/21at 03:03; Start 06/16/21 at 15:00; Stop 06/17/21 at 03:29; Status DC Prochlorperazine Maleate (Compazine) 10 mg PRN Q4HRS PRN PO Nausea/vomiting, 2nd choice; Start 06/16/21 at 09:45 Metoclopramide HCl (Reglan Vial) 10 mg PRN Q4HRS PRN IVP NAUSEA/VOMITING, 3rd CHOICE; Start 06/16/21 at 09:45 Magnesium Hydroxide (Milk Of Magnesia) 2,400 mg 1X PRN PRN PO CONSTIPATION; Start 06/17/21 at 06:00; Stop 06/18/21 at 05:59 Bisacodyl (Dulcolax Supp) 10 mg 1X PRN PRN IN CONSTIPATION; Start 06/17/21 at 16:00; Stop 06/18/21 at 15:59 Zolpidem Tartrate (Ambien) 5 mg PRN QHS PRN PO INSOMNIA, MAY REPEAT IN 1HR; Start 06/16/21 at 09:45; Stop 06/16/21 at 14:21; Status DC Calcium Carbonate/ Glycine (Tums) 500 mg PRN QID PRN PO INDIGESTION; Start 06/16/21 at 09:45 Sodium Chloride (Normal Saline Flush) 10 ml QSHIFT PRN IV AFTER MEDS AND BLOOD DRAWS; Start 06/16/21 at 09:45 Acetaminophen (Tylenol) 1,000 mg Q6H PO ; Start 06/17/21 at 09:00; Stop 06/16/21 at 14:21; Status DC Meloxicam (Mobic) 15 mg DAILY PO Last administered on 06/17/21at 08:55; Start 06/17/21 at 09:00 Gabapentin (Neurontin) 100 mg Q8HRS PO Last administered on 06/17/21at 05:34; Start 06/17/21 at 06:00 Ondansetron HCl (Zofran) 4 mg Q6HRS IVP Last administered on 06/16/21at 18:01; Start 06/16/21 at 12:00; Stop 06/17/21 at 06:01; Status DC Ondansetron HCl (Zofran Odt) 4 mg Q6HRS PO ; Start 06/16/21 at 12:00; Stop 06/17/21 at 06:01; Status DC Ondansetron HCl (Zofran) 4 mg PRN Q6HRS PRN IVP Nausea/vomiting, 1st choice; Start 06/17/21 at 12:00 Ondansetron HCl (Zofran Odt) 4 mg PRN Q6HRS PRN PO Nausea/vomiting, 1st choice; Start 06/17/21 at 12:00 Oxycodone HCl (Roxicodone) 5 mg PRN Q4HRS PRN PO Pain score 4-6 Last administered on 06/17/21at 10:02; Start 06/16/21 at 09:45 Dextrose (Dextrose 50%-Water Syringe) 12.5 gm PRN Q15MIN PRN IV SEE COMMENTS; Start 06/16/21 at 09:45 Dextrose (Iv Dextrose 5%) 250 ml PRN Q15MIN PRN IV SEE COMMENTS; Start 06/16/21 at 09:45 Acetaminophen (Tylenol) 500 mg QID PO Last administered on 06/17/21at 08:54; Start 06/16/21 at 17:00 Losartan Potassium (Cozaar) 50 mg DAILY PO ; Start 06/17/21 at 09:00 Metoprolol Succinate (Toprol Xl) 50 mg DAILY PO ; Start 06/17/21 at 09:00 Polyethylene Glycol (miraLAX PACKET) 17 gm DAILY PO Last administered on 06/17/21at 08:54; Start 06/16/21 at 15:00 Pantoprazole Sodium (Protonix) 40 mg DAILYAC PO Last administered on 06/17/21at 05:34; Start 06/17/21 at 07:30 Atorvastatin Calcium (Lipitor) 20 mg QHS PO Last administered on 06/16/21at 21:07; Start 06/16/21 at 21:00 Senna/Docusate Sodium (Senna Plus) 2 tab QHS PO Last administered on 06/16/21at 21:07; Start 06/16/21 at 21:00 Diazepam (Valium) 5 mg PRN QHS PRN PO ANXIETY OR INSOMNIA; Start 06/16/21 at 14:15 Vitamin D (Vitamin D3) 1,000 unit DAILY PO Last administered on 06/17/21at 08:55; Start 06/17/21 at 09:00 Amlodipine Besylate (Norvasc) 5 mg DAILY PO ; Start 06/17/21 at 09:00 Propofol (Diprivan) 200 mg STK-MED ONCE IV ; Start 06/16/21 at 08:12; Stop 06/16/21 at 14:59; Status DC Dexamethasone Sodium Phosphate (Decadron) 4 mg STK-MED ONCE .ROUTE ; Start 06/16/21 at 08:12; Stop 06/16/21 at 14:59; Status DC Famotidine (Pepcid Vial) 20 mg STK-MED ONCE .ROUTE ; Start 06/16/21 at 08:12; Stop 06/16/21 at 14:59; Status DC Ondansetron HCl (Zofran) 4 mg STK-MED ONCE .ROUTE ; Start 06/16/21 at 08:12; Stop 06/16/21 at 14:59; Status DC Fentanyl Citrate (Fentanyl 2ml Vial) 100 mcg STK-MED ONCE .ROUTE ; Start 06/16/21 at 08:12; Stop 06/16/21 at 14:59; Status DC Midazolam HCl (Versed) 2 mg STK-MED ONCE .ROUTE ; Start 06/16/21 at 08:13; Stop 06/16/21 at 14:59; Status DC Lidocaine HCl (Lidocaine Pf 2% Vial) 5 ml STK-MED ONCE .ROUTE ; Start 06/16/21 at 08:13; Stop 06/16/21 at 14:59; Status DC Phenylephrine HCl (PHENYLEPHRINE in 0.9% NACL PF) 1 mg STK-MED ONCE IV ; Start 06/16/21 at 09:42; Stop 06/16/21 at 15:01; Status DC Tranexamic Acid 50 ml @ As Directed STK-MED ONCE .ROUTE ; Start 06/16/21 at 10:23; Stop 06/16/21 at 15:02; Status DC Fentanyl Citrate (Fentanyl 2ml Vial) 100 mcg STK-MED ONCE .ROUTE ; Start 06/16/21 at 11:11; Stop 06/16/21 at 15:03; Status DC Aspirin (Ecotrin) 325 mg BID PO ; Start 06/17/21 at 09:00 Active Scripts Active Tessalon Perle (Benzonatate) 100 Mg Capsule 1 Cap PO TID Diazepam 5 Mg Tablet 5 Mg PO PRN QHS PRN Reported Aspirin Ec (Aspirin) 325 Mg Tablet.dr 1 Tab PO BID 30 Days Miralax (Polyethylene Glycol 3350) 119 Gm Powder 1 Tbs PO DAILY Stool Softener (Docusate Sodium) 50 Mg Capsule 50 Mg PO DAILY [prevagen] 1 Tab PO DAILY Preservision Areds Softgel (Vit A/Vit C/Vit E/Zinc/Copper) 1 Each Capsule 1 Each PO DAILY Biotin 5,000 Mcg Tab.rapdis 5,000 Mcg PO DAILY Calcium Carbonate 600 Mg Tablet 1 Tab PO DAILY 30 Days Metoprolol Succinate ( Xl ) (Metoprolol Succinate) 25 Mg Tab.er.24h 50 Mg PO DAILY PRN Hydrocodone-Apap 5-325 (Hydrocodone Bit/Acetaminophen) 1 Tab Tablet 1 Tab PO PRN Q6HRS PRN [place]-3 ([place]-3 Fatty Acids) 1,000 Mg Capsule 1,000 Mg PO DAILY Proair Hfa (Albuterol Sulfate) 8.5 Gm Hfa.aer.ad 2 Puff INH PRN Q6HRS PRN One Daily Complete (Multivitamin With Minerals) 1 Each Tablet 1 Each PO DAILY Nexium Capsule (Esomeprazole Magnesium) 40 Mg Capsule.dr 40 Mg PO DAILY Amlodipine Besylate 5 Mg Tablet 5 Mg PO DAILY Crestor (Rosuvastatin Calcium) 10 Mg Tablet 10 Mg PO DAILY Losartan Potassium 50 Mg Tablet 50 Mg PO DAILY Vitamin D3 1,000 Unit Tablet (Ca Cmb No.1/Vit D3/B-6/Fa/B12) 1 Each Tablet 1 Each PO DAILY Vitals/I & O Vital Sign - Last 24 Hours 06/16/21 06/16/21 06/16/21 06/16/21 11:00 11:00 11:13 11:15 Temp 97.7 97.7 Pulse 69 64 Resp 16 16 16 B/P (MAP) 120/66 133/77 Pulse Ox 99 99 100 O2 Delivery Simple Mask Mask Simple Mask Simple Mask O2 Flow Rate 10 10 10.0 10 06/16/21 06/16/21 06/16/21 06/16/21 11:30 11:36 11:45 11:48 Pulse 64 63 Resp 16 16 16 16 B/P (MAP) 137/72 132/74 Pulse Ox 99 100 89 93 O2 Delivery Simple Mask Simple Mask Room Air Nasal Cannula O2 Flow Rate 10 10.0 3 06/16/21 06/16/21 06/16/21 06/16/21 11:59 12:00 12:12 12:15 Temp 97.3 97.3 Pulse 62 67 Resp 16 16 16 18 B/P (MAP) 140/77 122/73 (89) Pulse Ox 98 99 99 97 O2 Delivery Nasal Cannula Nasal Cannula Nasal Cannula Nasal Cannula O2 Flow Rate 3.0 3 3.0 2.0 06/16/21 06/16/21 06/16/21 06/16/21 12:15 12:45 12:47 13:15 Temp 97.6 97.6 Pulse 69 77 Resp 20 B/P (MAP) 126/71 (89) 119/73 (88) Pulse Ox 98 O2 Delivery Nasal Cannula Nasal Cannula Nasal Cannula O2 Flow Rate 3 3.0 2.0 06/16/21 06/16/21 06/16/21 06/16/21 13:30 14:30 15:45 18:01 Temp 98.0 97.7 98.0 97.7 Pulse 80 72 77 Resp 18 18 20 B/P (MAP) 122/64 (83) 129/71 (90) 122/73 (89) Pulse Ox 96 98 98 O2 Delivery Nasal Cannula Nasal Cannula Nasal Cannula Room Air O2 Flow Rate 2.0 2.0 2.0 06/16/21 06/16/21 06/16/21 06/16/21 18:50 19:45 19:50 22:50 Temp 98.0 98.0 Pulse 66 Resp 18 20 B/P (MAP) 106/63 (77) Pulse Ox 96 96 96 O2 Delivery Room Air Nasal Cannula Room Air Nasal Cannula O2 Flow Rate 3.0 3.0 06/16/21 06/16/21 06/17/21 06/17/21 23:20 23:20 03:04 06:04 Temp 97.5 98.1 97.5 98.1 Pulse 63 64 Resp 18 16 18 B/P (MAP) 100/61 (74) 118/61 (80) Pulse Ox 96 96 94 94 O2 Delivery Nasal Cannula Room Air Room Air Nasal Cannula O2 Flow Rate 3.0 3.0 06/17/21 06/17/21 06/17/21 06/17/21 06:14 06:34 08:00 09:00 Temp 97.9 97.9 Pulse 63 66 Resp 20 20 B/P (MAP) 125/69 (87) 110/66 (81) Pulse Ox 98 98 O2 Delivery Room Air Nasal Cannula Room Air O2 Flow Rate 3.0 Intake and Output 06/16/21 06/16/21 06/17/21 15:00 23:00 07:00 Intake Total 1820 ml 240 ml 940 ml Output Total 650 ml 400 ml 800 ml Balance 1170 ml -160 ml 140 ml Justifications for Admission Other Justification ANNE LUNA MD Jun 17, 2021 10:11
[2021-06-17] MEDS ORDERED: ONDANSETRON PF 4 MG/2 ML VIAL. IVP PRN (12:00)
[2021-06-17] MEDS ORDERED: ONDANSETRON ODT 4 MG TAB.RAPDIS. PO PRN (12:00)
[2021-06-17] MEDS: ASPIRIN ENTERIC COATED 325 MG TABLET.DR. PO SCH ×2 (13:17→20:32)
[2021-06-17] MEDS: LACTULOSE 20 GM/30 ML SOLUTION. PO SCH ×2 (14:57→20:32)
[2021-06-17] MEDS ORDERED: BISACODYL 10 MG SUPP.RECT. PR PRN (16:00)
[2021-06-17] MEDS: ATORVASTATIN CALCIUM 20 MG TABLET PO SCH (20:32)
[2021-06-18] MEDS: oxyCODONE IR 5 MG TABLET PO PRN ×6 (00:10→21:59)
[2021-06-18 04:21] LABS: HEMATOCRIT 32.4 % (36.0-47.0); HEMOGLOBIN 10.8 g/dL (12.0-15.5)
[2021-06-18] MEDS: ACETAMINOPHEN 500 MG TABLET PO SCH ×4 (04:39→17:57)
[2021-06-18] MEDS: GABAPENTIN 100 MG CAPSULE. PO SCH ×3 (06:00→21:58)
[2021-06-18 06:49] VITALS: BP 112/58
[2021-06-18] MEDS: PANTOPRAZOLE 40 MG TABLET.DR. PO SCH (07:36)
[2021-06-18] MEDS: SENNOSIDES/DOCUSATE 8.6/50MG TABLET. PO SCH ×2 (07:38→21:29)
[2021-06-18] MEDS: MELOXICAM 7.5 MG TABLET PO SCH (07:38)
[2021-06-18] MEDS: CHOLECALCIFEROL (VITAMIN D3) 1,000 UNIT TABLET PO SCH (07:38)
[2021-06-18] MEDS: MULTIVITAMIN with MINERAL TABLET. PO SCH (07:38)
[2021-06-18] MEDS: METOPROLOL SUCC 24HR ER 50 MG TAB.ER.24H. PO SCH ×2 (09:00→17:57)
[2021-06-18] MEDS: IV NORMAL SALINE 1000ML BAG 1,000 ML IV SCH (09:45)
--- NOTE | 2021-06-18 10:07 | PDOC ---
PROGRESS NOTES Date of Service DATE: 06/18/21 TIME: 10:04 Subjective Subjective feels okay. pain controlled,. she had a BM. systolic bp 112 and bp has been on low side of normal. will d/c losartan and amlodipine. hgb 10.8 Objective Objective Vital Signs Date Time Temp Pulse Resp B/P (MAP) Pulse Ox O2 Delivery O2 Flow Rate FiO2 06/18/21 08:02 Room Air 06/18/21 06:49 98.7 76 16 112/58 (76) 94 98.7 06/17/21 06:34 3.0 Intake and Output 06/18/21 07:00 Intake Total 480 ml Output Total 300 ml Balance 180 ml Intake Oral 480 ml Output Urine Total 300 ml # Voids 5 # Bowel Movements 2 Physical Exam Abdomen: Soft Heart: Regular rate, Normal S1, Normal S2 Extremities: No edema, Other (wound vac knee) General: Alert HEENT: Atraumatic Lungs: Clear to auscultation Neuro: Normal speech Psych/Mental Status: Mental status NL Skin: No rashes Assessment Assessment 1. Right total knee arthroplasty for osteoarthritis. 2. Osteoarthritis. 3. Hypertension. bp on low side of normal 4. Hyperlipidemia. 5. Fibromyalgia. 6. History of adenocarcinoma of the right upper lobe, treated with radiation therapy. Currently, in remission. 7. History of non-Hodgkin's lymphoma in the past, treated with chemo and radiation therapy, currently in remission. Plan Plan of Care d/c losartan and amlodipine continue metoprolol continue prn analgesics continue miralax and senna-s PT anticipate dismissal to SNF tomrrow Comment Review of Relevant I have reviewed the following items bernard (where applicable) has been applied. Labs Laboratory Tests Test 06/17/21 05:50 06/18/21 03:50 White Blood Count 8.7 x10^3/uL (4.0-11.0) Red Blood Count 3.86 x10^6/uL (3.50-5.40) Hemoglobin 11.8 g/dL (12.0-15.5) 10.8 g/dL (12.0-15.5) Hematocrit 35.7 % (36.0-47.0) 32.4 % (36.0-47.0) Mean Corpuscular Volume 92 fL (79-100) Mean Corpuscular Hemoglobin 31 pg (25-35) Mean Corpuscular Hemoglobin Concent 33 g/dL (31-37) 33 g/dL (31-37) Red Cell Distribution Width 14.7 % (11.5-14.5) Platelet Count 199 x10^3/uL (140-400) Neutrophils (%) (Auto) 70 % (31-73) Lymphocytes (%) (Auto) 21 % (24-48) Monocytes (%) (Auto) 9 % (0-9) Eosinophils (%) (Auto) 0 % (0-3) Basophils (%) (Auto) 0 % (0-3) Neutrophils # (Auto) 6.1 x10^3/uL (1.8-7.7) Lymphocytes # (Auto) 1.9 x10^3/uL (1.0-4.8) Monocytes # (Auto) 0.8 x10^3/uL (0.0-1.1) Eosinophils # (Auto) 0.0 x10^3/uL (0.0-0.7) Basophils # (Auto) 0.0 x10^3/uL (0.0-0.2) Sodium Level 140 mmol/L (136-145) Potassium Level 3.6 mmol/L (3.5-5.1) Chloride Level 101 mmol/L (98-107) Carbon Dioxide Level 32 mmol/L (21-32) Anion Gap 7 (6-14) Blood Urea Nitrogen 14 mg/dL (7-20) Creatinine 0.7 mg/dL (0.6-1.0) Estimated GFR (Cockcroft-Gault) 98.4 Glucose Level 96 mg/dL (70-99) Calcium Level 7.9 mg/dL (8.5-10.1) Laboratory Tests Test 06/18/21 03:50 Hemoglobin 10.8 g/dL (12.0-15.5) Hematocrit 32.4 % (36.0-47.0) Mean Corpuscular Hemoglobin Concent 33 g/dL (31-37) Medications Current Medications Fentanyl Citrate (Fentanyl 2ml Vial) 25 mcg PRN Q5MIN PRN IVP MILD PAIN 1-3; Start 06/16/21 at 06:00; Stop 06/16/21 at 14:35; Status DC Fentanyl Citrate (Fentanyl 2ml Vial) 50 mcg PRN Q5MIN PRN IVP MODERATE PAIN 4-6 Last administered on 06/16/21at 11:36; Start 06/16/21 at 06:00; Stop 06/16/21 at 14:35; Status DC Morphine Sulfate (Morphine Sulfate) 1 mg PRN Q10MIN PRN IVP SEVERE PAIN 7-10 Last administered on 06/16/21at 12:12; Start 06/16/21 at 06:00; Stop 06/16/21 at 14:35; Status DC Ringer's Solution 1,000 ml @ 30 mls/hr Q24H IV Last administered on 06/16/21at 06:45; Start 06/16/21 at 06:00; Stop 06/16/21 at 17:59; Status DC Hydromorphone HCl (Dilaudid) 0.5 mg PRN Q10MIN PRN IVP SEVERE PAIN 7-10, 2nd CHOICE; Start 06/16/21 at 06:00; Stop 06/16/21 at 14:35; Status DC Prochlorperazine Edisylate (Compazine) 5 mg PACU PRN PRN IVP NAUSEA, MRX1; Start 06/16/21 at 06:00; Stop 06/16/21 at 14:35; Status DC Morphine Sulfate 5 mg/Ketorolac Tromethamine 30 mg/Ropivacaine 60 ml/Epinephrine HCl 0.5 mg/ Miscellaneous 63 ml @ 63 mls/hr 1X PERIOP ONCE INT ART Last administered on 06/16/21at 09:57; Start 06/16/21 at 06:00; Stop 06/16/21 at 06:59; Status DC Meloxicam (Mobic) 15 mg 1X PREOP PRN PO PRIOR TO PROCEDURE Last administered on 06/16/21at 06:45; Start 06/16/21 at 06:00; Stop 06/16/21 at 14:36; Status DC Gabapentin (Neurontin) 300 mg 1X PREOP PRN PO PRIOR TO PROCEDURE Last admi nistered on 06/16/21at 06:45; Start 06/16/21 at 06:00; Stop 06/16/21 at 14:36; Status DC Acetaminophen (Tylenol) 1,000 mg 1X PREOP PRN PO PRIOR TO PROCEDURE Last administered on 06/16/21at 06:45; Start 06/16/21 at 06:00; Stop 06/16/21 at 14:36; Status DC Clindamycin Phosphate 50 ml @ 100 mls/hr 1X PREOP PRN IV PRIOR TO PROCEDURE; Start 06/16/21 at 06:00; Stop 06/16/21 at 14:26; Status DC Tranexamic Acid 50 ml @ 50 mls/hr 1X PERIOP ONCE INJ ; Start 06/16/21 at 06:00; Stop 06/16/21 at 06:59; Status DC Tranexamic Acid 50 ml @ 50 mls/hr 1X PERIOP ONCE INJ Last administered on 06/16/21at 10:28; Start 06/16/21 at 08:00; Stop 06/16/21 at 08:59; Status DC Morphine Sulfate (Morphine Sulfate) 2 mg PRN Q1HR PRN IVP PAIN-SEE COMMENTS Last administered on 06/16/21at 14:32; Start 06/16/21 at 09:45 Fentanyl Citrate (Fentanyl 2ml Vial) 25 mcg PRN Q1HR PRN IVP PAIN, 2nd CHOICE; Start 06/16/21 at 09:45 Diphenhydramine HCl (Benadryl) 25 mg PRN Q6HRS PRN IVP ITCHING; Start 06/16/21 at 09:45 Multivitamins (Thera M Plus) 1 tab DAILY PO Last administered on 06/18/21at 07:38; Start 06/17/21 at 09:00 Senna/Docusate Sodium (Senna Plus) 1 tab DAILY PO Last administered on 06/18/21at 07:38; Start 06/16/21 at 12:00 Sodium Chloride 1,000 ml @ 40 mls/hr Q24H IV Last administered on 06/16/21at 18:04; Start 06/16/21 at 09:45 Clindamycin Phosphate 50 ml @ 100 mls/hr Q6H IV Last administered on 06/17/21at 03:03; Start 06/16/21 at 15:00; Stop 06/17/21 at 03:29; Status DC Prochlorperazine Maleate (Compazine) 10 mg PRN Q4HRS PRN PO Nausea/vomiting, 2nd choice; Start 06/16/21 at 09:45 Metoclopramide HCl (Reglan Vial) 10 mg PRN Q4HRS PRN IVP NAUSEA/VOMITING, 3rd CHOICE; Start 06/16/21 at 09:45 Magnesium Hydroxide (Milk Of Magnesia) 2,400 mg 1X PRN PRN PO CONSTIPATION; Start 06/17/21 at 06:00; Stop 06/18/21 at 05:59; Status DC Bisacodyl (Dulcolax Supp) [address] CONSTIPATION; Start 06/17/21 at 16:00; Stop 06/18/21 at 15:59 Zolpidem Tartrate (Ambien) 5 mg PRN QHS PRN PO INSOMNIA, MAY REPEAT IN 1HR; Start 06/16/21 at 09:45; Stop 06/16/21 at 14:21; Status DC Calcium Carbonate/ Glycine (Tums) 500 mg PRN QID PRN PO INDIGESTION Last administered on 06/17/21at 19:08; Start 06/16/21 at 09:45 Sodium Chloride (Normal Saline Flush) 10 ml QSHIFT PRN IV AFTER MEDS AND BLOOD DRAWS; Start 06/16/21 at 09:45 Acetaminophen (Tylenol) 1,000 mg Q6H PO ; Start 06/17/21 at 09:00; Stop 06/16/21 at 14:21; Status DC Meloxicam (Mobic) 15 mg DAILY PO Last administered on 06/18/21at 07:38; Start 06/17/21 at 09:00 Gabapentin (Neurontin) 100 mg Q8HRS PO Last administered on 06/18/21at 06:00; St art 06/17/21 at 06:00 Ondansetron HCl (Zofran) 4 mg Q6HRS IVP Last administered on 06/16/21at 18:01; Start 06/16/21 at 12:00; Stop 06/17/21 at 06:01; Status DC Ondansetron HCl (Zofran Odt) 4 mg Q6HRS PO ; Start 06/16/21 at 12:00; Stop 06/17/21 at 06:01; Status DC Ondansetron HCl (Zofran) 4 mg PRN Q6HRS PRN IVP Nausea/vomiting, 1st choice; Start 06/17/21 at 12:00 Ondansetron HCl (Zofran Odt) 4 mg PRN Q6HRS PRN PO Nausea/vomiting, 1st choice; Start 06/17/21 at 12:00 Oxycodone HCl (Roxicodone) 5 mg PRN Q4HRS PRN PO Pain score 4-6 Last administered on 06/18/21at 07:37; Start 06/16/21 at 09:45 Dextrose (Dextrose 50%-Water Syringe) 12.5 gm PRN Q15MIN PRN IV SEE COMMENTS; Start 06/16/21 at 09:45 Dextrose (Iv Dextrose 5%) 250 ml PRN Q15MIN PRN IV SEE COMMENTS; Start 06/16/21 at 09:45 Acetaminophen (Tylenol) 500 mg QID PO Last administered on 06/18/21at 07:36; Start 06/16/21 at 17:00 Losartan Potassium (Cozaar) 50 mg DAILY PO ; Start 06/17/21 at 09:00; Stop 06/18/21 at 09:49; Status DC Metoprolol Succinate (Toprol Xl) 50 mg DAILY PO ; Start 06/17/21 at 09:00 Polyethylene Glycol (miraLAX PACKET) 17 gm DAILY PO Last administered on 06/17/21at 08:54; Start 06/16/21 at 15:00 Pantoprazole Sodium (Protonix) 40 mg DAILYAC PO Last administered on 06/18/21at 07:36; Start 06/17/21 at 07:30 Atorvastatin Calcium (Lipitor) 20 mg QHS PO Last administered on 06/17/21at 20:32; Start 06/16/21 at 21:00 Senna/Docusate Sodium (Senna Plus) 2 tab QHS PO Last administered on 06/17/21at 20:32; Start 06/16/21 at 21:00 Diazepam (Valium) 5 mg PRN QHS PRN PO ANXIETY OR INSOMNIA; Start 06/16/21 at 14:15 Vitamin D (Vitamin D3) 1,000 unit DAILY PO Last administered on 06/18/21at 07:38; Start 06/17/21 at 09:00 Amlodipine Besylate (Norvasc) 5 mg DAILY PO ; Start 06/17/21 at 09:00; Stop 06/18/21 at 09:49; Status DC Propofol (Diprivan) 200 mg STK-MED ONCE IV ; Start 06/16/21 at 08:12; Stop 06/16/21 at 14:59; Status DC Dexamethasone Sodium Phosphate (Decadron) 4 mg STK-MED ONCE .ROUTE ; Start 06/16/21 at 08:12; Stop 06/16/21 at 14:59; Status DC Famotidine (Pepcid Vial) 20 mg STK-MED ONCE .ROUTE ; Start 06/16/21 at 08:12; Stop 06/16/21 at 14:59; Status DC Ondansetron HCl (Zofran) 4 mg STK-MED ONCE .ROUTE ; Start 06/16/21 at 08:12; Stop 06/16/21 at 14:59; Status DC Fentanyl Citrate (Fentanyl 2ml Vial) 100 mcg STK-MED ONCE .ROUTE ; Start 06/16/21 at 08:12; Stop 06/16/21 at 14:59; Status DC Midazolam HCl (Versed) 2 mg STK-MED ONCE .ROUTE ; Start 06/16/21 at 08:13; Stop 06/16/21 at 14:59; Status DC Lidocaine HCl (Lidocaine Pf 2% Vial) 5 ml STK-MED ONCE .ROUTE ; Start 06/16/21 at 08:13; Stop 06/16/21 at 14:59; Status DC Phenylephrine HCl (PHENYLEPHRINE in 0.9% NACL PF) 1 mg STK-MED ONCE IV ; Start 06/16/21 at 09:42; Stop 06/16/21 at 15:01; Status DC Tranexamic Acid 50 ml @ As Directed STK-MED ONCE .ROUTE ; Start 06/16/21 at 10:23; Stop 06/16/21 at 15:02; Status DC Fentanyl Citrate (Fentanyl 2ml Vial) 100 mcg STK-MED ONCE .ROUTE ; Start 06/16/21 at 11:11; Stop 06/16/21 at 15:03; Status DC Aspirin (Ecotrin) 325 mg BID PO Last administered on 06/17/21at 20:32; Start 06/17/21 at 09:00 Lactulose (Lactulose) 20 gm BID PO Last administered on 06/17/21at 20:32; Start 06/17/21 at 16:00; Stop 06/17/21 at 21:00; Status DC Clindamycin Phosphate (Cleocin 900mg Premix) 900 mg STK-MED ONCE IV ; Start 06/16/21 at 08:00; Stop 06/17/21 at 13:05; Status DC Active Scripts Active Tessalon Perle (Benzonatate) 100 Mg Capsule 1 Cap PO TID Diazepam 5 Mg Tablet 5 Mg PO PRN QHS PRN Reported Aspirin Ec (Aspirin) 325 Mg Tablet.dr 1 Tab PO BID 30 Days Miralax (Polyethylene Glycol 3350) 119 Gm Powder 1 Tbs PO DAILY Stool Softener (Docusate Sodium) 50 Mg Capsule 50 Mg PO DAILY [prevagen] 1 Tab PO DAILY Preservision Areds Softgel (Vit A/Vit C/Vit E/Zinc/Copper) 1 Each Capsule 1 Each PO DAILY Biotin 5,000 Mcg Tab.rapdis 5,000 Mcg PO DAILY Calcium Carbonate 600 Mg Tablet 1 Tab PO DAILY 30 Days Metoprolol Succinate ( Xl ) (Metoprolol Succinate) 25 Mg Tab.er.24h 50 Mg PO DAILY PRN Hydrocodone-Apap 5-325 (Hydrocodone Bit/Acetaminophen) 1 Tab Tablet 1 Tab PO PRN Q6HRS PRN Angela-3 (Angela-3 Fatty Acids) 1,000 Mg Capsule 1,000 Mg PO DAILY Proair Hfa (Albuterol Sulfate) 8.5 Gm Hfa.aer.ad 2 Puff INH PRN Q6HRS PRN One Daily Complete (Multivitamin With Minerals) 1 Each Tablet 1 Each PO DAILY Nexium Capsule (Esomeprazole Magnesium) 40 Mg Capsule. 40 Mg PO DAILY Amlodipine Besylate 5 Mg Tablet 5 Mg PO DAILY Crestor (Rosuvastatin Calcium) 10 Mg Tablet 10 Mg PO DAILY Losartan Potassium 50 Mg Tablet 50 Mg PO DAILY Vitamin D3 1,000 Unit Tablet (Ca Cmb No.1/Vit D3/B-6/Fa/B12) 1 Each Tablet 1 Each PO DAILY Vitals/I & O Vital Sign - Last 24 Hours 06/17/21 06/17/21 06/17/21 06/17/21 11:00 13:17 15:03 18:33 Temp 98.0 98.0 Pulse 79 64 Resp 20 20 20 B/P (MAP) 131/59 (83) 104/63 (77) Pulse Ox 98 O2 Delivery Room Air Room Air Room Air 06/17/21 06/17/21 06/17/21 06/18/21 19:47 20:00 23:32 03:00 Temp 98.6 98.2 98.6 98.2 Pulse 71 67 Resp 18 18 18 B/P (MAP) 101/50 (67) 94/55 (68) Pulse Ox 95 93 O2 Delivery Room Air Room Air Room Air 06/18/21 06/18/21 06:49 08:02 Temp 98.7 98.7 Pulse 76 Resp 16 B/P (MAP) 112/58 (76) Pulse Ox 94 O2 Delivery Room Air Room Air Intake and Output 06/17/21 06/17/21 06/18/21 15:00 23:00 07:00 Intake Total 480 ml Output Total 300 ml Balance -300 ml 480 ml Justifications for Admission Other Justification ANNE LUNA MD Jun 18, 2021 10:07
[2021-06-18 10:56] VITALS: BP 105/56
[2021-06-18] MEDS: POLYETHYLENE GLYCOL 3350 17 GM PACKET. PO SCH (11:40)
[2021-06-18] MEDS: ASPIRIN ENTERIC COATED 325 MG TABLET.DR. PO SCH ×2 (11:44→21:29)
[2021-06-18 15:00] VITALS: BP 102/58
[2021-06-18 17:59] VITALS: BP 179/71
--- NOTE | 2021-06-18 19:04 | PN ---
DATE: 06/18/2021 She was seen on postoperative day #1 and postoperative day #2. Postoperative day #1, we are getting her pain under control throughout the day. There are no significant issues as far as her therapy progress for motion as well as some quad activities. No signs or symptoms of infection or DVT with no significant drainage from the wound whatsoever. She is progressing well and is anticipating discharge within the next day or 2 at that point. She was also seen this morning for continued physical and occupational therapy. Continue DVT prophylaxis. She has no signs or symptoms of infection or DVT. The dressing is clean at this point. Her range of motion is already up to almost 90 degrees of flexion and full extension as possible today. According to physical therapy, she is progressing well with physical therapy and she is doing well enough that she would like to go to an extended facility tomorrow. We will continue with her physical therapy and strengthening, range of motion exercises and DVT prophylaxis. Obviously, they will keep the pain under control and I will reevaluate her in a couple of weeks in the office. They will call if there are any issues or problems, but she is progressing well enough that I think she has already made it through the toughest part for her at this point. ROBERTO DR: Gina TID: [id number]
[2021-06-18 19:29] VITALS: BP 90/48
[2021-06-18] MEDS: ATORVASTATIN CALCIUM 20 MG TABLET PO SCH (21:24)
[2021-06-18 23:33] VITALS: BP 96/61
[2021-06-19] MEDS: oxyCODONE IR 5 MG TABLET PO PRN ×3 (04:46→13:09)
[2021-06-19 04:53] LABS: HEMOGLOBIN 9.9 g/dL (12.0-15.5)
[2021-06-19] MEDS: PANTOPRAZOLE 40 MG TABLET.DR. PO SCH (05:30)
[2021-06-19] MEDS: GABAPENTIN 100 MG CAPSULE. PO SCH ×2 (05:30→13:19)
[2021-06-19 06:45] VITALS: BP 112/60
[2021-06-19] MEDS: SENNOSIDES/DOCUSATE 8.6/50MG TABLET. PO SCH (07:40)
[2021-06-19] MEDS: ASPIRIN ENTERIC COATED 325 MG TABLET.DR. PO SCH (07:40)
[2021-06-19] MEDS: POLYETHYLENE GLYCOL 3350 17 GM PACKET. PO SCH (07:40)
[2021-06-19] MEDS: METOPROLOL SUCC 24HR ER 50 MG TAB.ER.24H. PO SCH (07:40)
[2021-06-19] MEDS: MULTIVITAMIN with MINERAL TABLET. PO SCH (07:40)
[2021-06-19] MEDS: CHOLECALCIFEROL (VITAMIN D3) 1,000 UNIT TABLET PO SCH (07:40)
[2021-06-19] MEDS: ACETAMINOPHEN 500 MG TABLET PO SCH ×2 (07:41→13:09)
[2021-06-19] MEDS: MELOXICAM 7.5 MG TABLET PO SCH (07:41)
[2021-06-19] MEDS: IV NORMAL SALINE 1000ML BAG 1,000 ML IV SCH (08:21)
--- NOTE | 2021-06-19 10:31 | PDOC ---
PROGRESS NOTES Date of Service DATE: 06/19/21 TIME: 10:30 Subjective Subjective pain controlled. lab reviewed. feels well. Objective Objective Vital Signs Date Time Temp Pulse Resp B/P (MAP) Pulse Ox O2 Delivery O2 Flow Rate FiO2 06/19/21 09:59 93 Room Air 06/19/21 07:40 73 112/60 06/19/21 06:45 99.3 16 99.3 06/17/21 06:34 3.0 Intake and Output 06/19/21 07:00 Intake Total 1600 ml Balance 1600 ml Intake Oral 1600 ml # Voids 6 Physical Exam Abdomen: Soft Heart: Regular rate, Normal S1, Normal S2 Extremities: No edema General: Alert HEENT: Atraumatic Lungs: Clear to auscultation Neuro: Normal speech Psych/Mental Status: Mental status NL Skin: No rashes, Other (dry dressing right knee) Assessment Assessment 1. Right total knee arthroplasty for osteoarthritis. 2. Osteoarthritis. 3. Hypertension. bp on low side of normal 4. Hyperlipidemia. 5. Fibromyalgia. 6. History of adenocarcinoma of the right upper lobe, treated with radiation therapy. Currently, in remission. 7. History of non-Hodgkin's lymphoma in the past, treated with chemo and radiation therapy, currently in remission. Plan Plan of Care dismiss today snf Comment Review of Relevant I have reviewed the following items bernard (where applicable) has been applied. Labs Laboratory Tests Test 06/18/21 03:50 06/18/21 10:00 06/19/21 04:25 Hemoglobin 10.8 g/dL (12.0-15.5) 9.9 g/dL (12.0-15.5) Hematocrit 32.4 % (36.0-47.0) 30.0 % (36.0-47.0) Mean Corpuscular Hemoglobin Concent 33 g/dL (31-37) 33 g/dL (31-37) Coronavirus (COVID-19)(PCR) Not detected (NOT DETECTD) Laboratory Tests Test 06/19/21 04:25 Hemoglobin 9.9 g/dL (12.0-15.5) Hematocrit 30.0 % (36.0-47.0) Mean Corpuscular Hemoglobin Concent 33 g/dL (31-37) Medications Current Medications Fentanyl Citrate (Fentanyl 2ml Vial) 25 mcg PRN Q5MIN PRN IVP MILD PAIN 1-3; Start 06/16/21 at 06:00; Stop 06/16/21 at 14:35; Status DC Fentanyl Citrate (Fentanyl 2ml Vial) 50 mcg PRN Q5MIN PRN IVP MODERATE PAIN 4-6 Last administered on 06/16/21at 11:36; Start 06/16/21 at 06:00; Stop 06/16/21 at 14:35; Status DC Morphine Sulfate (Morphine Sulfate) 1 mg PRN Q10MIN PRN IVP SEVERE PAIN 7-10 Last administered on 06/16/21at 12:12; Start 06/16/21 at 06:00; Stop 06/16/21 at 14:35; Status DC Ringer's Solution 1,000 ml @ 30 mls/hr Q24H IV Last administered on 06/16/21at 06:45; Start 06/16/21 at 06:00; Stop 06/16/21 at 17:59; Status DC Hydromorphone HCl (Dilaudid) 0.5 mg PRN Q10MIN PRN IVP SEVERE PAIN 7-10, 2nd CHOICE; Start 06/16/21 at 06:00; Stop 06/16/21 at 14:35; Status DC Prochlorperazine Edisylate (Compazine) 5 mg PACU PRN PRN IVP NAUSEA, MRX1; Start 06/16/21 at 06:00; Stop 06/16/21 at 14:35; Status DC Morphine Sulfate 5 mg/Ketorolac Tromethamine 30 mg/Ropivacaine 60 ml/Epinephrine HCl 0.5 mg/ Miscellaneous 63 ml @ 63 mls/hr 1X PERIOP ONCE INT ART Last administered on 06/16/21at 09:57; Start 06/16/21 at 06:00; Stop 06/16/21 at 06:59; Status DC Meloxicam (Mobic) 15 mg 1X PREOP PRN PO PRIOR TO PROCEDURE Last administered on 06/16/21at 06:45; Start 06/16/21 at 06:00; Stop 06/16/21 at 14:36; Status DC Gabapentin (Neurontin) 300 mg 1X PREOP PRN PO PRIOR TO PROCEDURE Last administered on 06/16/21at 06:45; Start 06/16/21 at 06:00; Stop 06/16/21 at 14:36; Status DC Acetaminophen (Tylenol) 1,000 mg 1X PREOP PRN PO PRIOR TO PROCEDURE Last administered on 06/16/21at 06:45; Start 06/16/21 at 06:00; Stop 06/16/21 at 14:36; Status DC Clindamycin Phosphate 50 ml @ 100 mls/hr 1X PREOP PRN IV PRIOR TO PROCEDURE; Start 06/16/21 at 06:00; Stop 06/16/21 at 14:26; Status DC Tranexamic Acid 50 ml @ 50 mls/hr 1X PERIOP ONCE INJ ; Start 06/16/21 at 06:00; Stop 06/16/21 at 06:59; Status DC Tranexamic Acid 50 ml @ 50 mls/hr 1X PERIOP ONCE INJ Last administered on 06/16/21at 10:28; Start 06/16/21 at 08:00; Stop 06/16/21 at 08:59; Status DC Morphine Sulfate (Morphine Sulfate) 2 mg PRN Q1HR PRN IVP PAIN-SEE COMMENTS Last administered on 06/16/21at 14:32; Start 06/16/21 at 09:45 Fentanyl Citrate (Fentanyl 2ml Vial) 25 mcg PRN Q1HR PRN IVP PAIN, 2nd CHOICE; Start 06/16/21 at 09:45 Diphenhydramine HCl (Benadryl) 25 mg PRN Q6HRS PRN IVP ITCHING; Start 06/16/21 at 09:45 Multivitamins (Thera M Plus) 1 tab DAILY PO Last administered on 06/19/21at 07:40; Start 06/17/21 at 09:00 Senna/Docusate Sodium (Senna Plus) 1 tab DAILY PO Last administered on 06/19/21at 07:40; Start 06/16/21 at 12:00 Sodium Chloride 1,000 ml @ 40 mls/hr Q24H IV Last administered on 06/16/21at 18:04; Start 06/16/21 at 09:45 Clindamycin Phosphate 50 ml @ 100 mls/hr Q6H IV Last administered on 06/17/21at 03:03; Start 06/16/21 at 15:00; Stop 06/17/21 at 03:29; Status DC Prochlorperazine Maleate (Compazine) 10 mg PRN Q4HRS PRN PO Nausea/vomiting, 2nd choice; Start 06/16/21 at 09:45 Metoclopramide HCl (Reglan Vial) 10 mg PRN Q4HRS PRN IVP NAUSEA/VOMITING, 3rd CHOICE; Start 06/16/21 at 09:45 Magnesium Hydroxide (Milk Of Magnesia) 2,400 mg 1X PRN PRN PO CONSTIPATION; Start 06/17/21 at 06:00; Stop 06/18/21 at 05:59; Status DC Bisacodyl (Dulcolax Supp) 10 mg 1X PRN PRN MA CONSTIPATION; Start 06/17/21 at 16:00; Stop 06/18/21 at 15:59; Status DC Zolpidem Tartrate (Ambien) 5 mg PRN QHS PRN PO INSOMNIA, MAY REPEAT IN 1HR; Start 06/16/21 at 09:45; Stop 06/16/21 at 14:21; Status DC Calcium Carbonate/ Glycine (Tums) 500 mg PRN QID PRN PO INDIGESTION Last administered on 06/17/21at 19:08; Start 06/16/21 at 09:45 Sodium Chloride (Normal Saline Flush) 10 ml QSHIFT PRN IV AFTER MEDS AND BLOOD DRAWS; Start 06/16/21 at 09:45 Acetaminophen (Tylenol) 1,000 mg Q6H PO ; Start 06/17/21 at 09:00; Stop 06/16/21 at 14:21; Status DC Meloxicam (Mobic) 15 mg DAILY PO Last administered on 06/19/21at 07:41; Start 06/17/21 at 09:00 Gabapentin (Neurontin) 100 mg Q8HRS PO Last administered on 06/19/21at 05:30; Start 06/17/21 at 06:00 Ondansetron HCl (Zofran) 4 mg Q6HRS IVP Last administered on 06/16/21at 18:01; S tart 06/16/21 at 12:00; Stop 06/17/21 at 06:01; Status DC Ondansetron HCl (Zofran Odt) 4 mg Q6HRS PO ; Start 06/16/21 at 12:00; Stop 06/17/21 at 06:01; Status DC Ondansetron HCl (Zofran) 4 mg PRN Q6HRS PRN IVP Nausea/vomiting, 1st choice; Start 06/17/21 at 12:00 Ondansetron HCl (Zofran Odt) 4 mg PRN Q6HRS PRN PO Nausea/vomiting, 1st choice Last administered on 06/18/21 11:43; Start 06/17/21 at 12:00 Oxycodone HCl (Roxicodone) 5 mg PRN Q4HRS PRN PO Pain score 4-6 Last administered on 06/19/21 09:29; Start 06/16/21 at 09:45 Dextrose (Dextrose 50%-Water Syringe) 12.5 gm PRN Q15MIN PRN IV SEE COMMENTS; Start 06/16/21 at 09:45 Dextrose (Iv Dextrose 5%) 250 ml PRN Q15MIN PRN IV SEE COMMENTS; Start 06/16/21 at 09:45 Acetaminophen (Tylenol) 500 mg QID PO Last administered on 06/19/21 07:41; Start 06/16/21 at 17:00 Losartan Potassium (Cozaar) 50 mg DAILY PO ; Start 06/17/21 at 09:00; Stop at 09:49; Status DC Metoprolol Succinate (Toprol Xl) 50 mg DAILY PO Last administered on 06/19/21 07:40; Start 06/17/21 at 09:00 Polyethylene Glycol (miraLAX PACKET) 17 gm DAILY PO Last administered on 06/19/21 07:40; Start 06/16/21 at 15:00 Pantoprazole Sodium (Protonix) 40 mg DAILYAC PO Last administered on 06/19/21 05:30; Start 06/17/21 at 07:30 Atorvastatin Calcium (Lipitor) 20 mg QHS PO Last administered on 06/18/21 21:24; Start 06/16/21 at 21:00 Senna/Docusate Sodium (Senna Plus) 2 tab QHS PO Last administered on 06/18/21 21:29; Start 06/16/21 at 21:00 Diazepam (Valium) 5 mg PRN QHS PRN PO ANXIETY OR INSOMNIA; Start 06/16/21 at 14:15 Vitamin D (Vitamin D3) 1,000 unit DAILY PO Last administered on 06/19/21 07:40; Start 06/17/21 at 09:00 Amlodipine Besylate (Norvasc) 5 mg DAILY PO ; Start 06/17/21 at 09:00; Stop 06/18/21 at 09:49; Status DC Propofol (Diprivan) 200 mg STK-MED ONCE IV ; Start 06/16/21 at 08:12; Stop 06/16/21 at 14:59; Status DC Dexamethasone Sodium Phosphate (Decadron) 4 mg STK-MED ONCE .ROUTE ; Start 06/16/21 at 08:12; Stop 06/16/21 at 14:59; Status DC Famotidine (Pepcid Vial) 20 mg STK-MED ONCE .ROUTE ; Start 06/16/21 at 08:12; Stop 06/16/21 at 14:59; Status DC Ondansetron HCl (Zofran) 4 mg STK-MED ONCE .ROUTE ; Start 06/16/21 at 08:12; Stop 06/16/21 at 14:59; Status DC Fentanyl Citrate (Fentanyl 2ml Vial) 100 mcg STK-MED ONCE .ROUTE ; Start 06/16/21 at 08:12; Stop 06/16/21 at 14:59; Status DC Midazolam HCl (Versed) 2 mg STK-MED ONCE .ROUTE ; Start 06/16/21 at 08:13; Stop 06/16/21 at 14:59; Status DC Lidocaine HCl (Lidocaine Pf 2% Vial) 5 ml STK-MED ONCE .ROUTE ; Start 06/16/21 at 08:13; Stop 06/16/21 at 14:59; Status DC Phenylephrine HCl (PHENYLEPHRINE in 0.9% NACL PF) 1 mg STK-MED ONCE IV ; Start 06/16/21 at 09:42; Stop 06/16/21 at 15:01; Status DC Tranexamic Acid 50 ml @ As Directed STK-MED ONCE .ROUTE ; Start 06/16/21 at 10:23; Stop 06/16/21 at 15:02; Status DC Fentanyl Citrate (Fentanyl 2ml Vial) 100 mcg STK-MED ONCE .ROUTE ; Start 06/16/21 at 11:11; Stop 06/16/21 at 15:03; Status DC Aspirin (Ecotrin) 325 mg BID PO Last administered on 06/19/21at 07:40; Start 06/17/21 at 09:00 Lactulose (Lactulose) 20 gm BID PO Last administered on 06/17/21at 20:32; Start 06/17/21 at 16:00; Stop 06/17/21 at 21:00; Status DC Clindamycin Phosphate (Cleocin 900mg Premix) 900 mg STK-MED ONCE IV ; Start 06/16/21 at 08:00; Stop 06/17/21 at 13:05; Status DC Active Scripts Active Tessalon Perle (Benzonatate) 100 Mg Capsule 1 Cap PO TID Diazepam 5 Mg Tablet 5 Mg PO PRN QHS PRN Reported Aspirin Ec (Aspirin) 325 Mg Tablet.dr 1 Tab PO BID 30 Days Miralax (Polyethylene Glycol 3350) 119 Gm Powder 1 Tbs PO DAILY Stool Softener (Docusate Sodium) 50 Mg Capsule 50 Mg PO DAILY [prevagen] 1 Tab PO DAILY Preservision Areds Softgel (Vit A/Vit C/Vit E/Zinc/Copper) 1 Each Capsule 1 Each PO DAILY Biotin 5,000 Mcg Tab.rapdis 5,000 Mcg PO DAILY Calcium Carbonate 600 Mg Tablet 1 Tab PO DAILY 30 Days Metoprolol Succinate ( Xl ) (Metoprolol Succinate) 25 Mg Tab.er.24h 50 Mg PO DAILY PRN Hydrocodone-Apap 5-325 (Hydrocodone Bit/Acetaminophen) 1 Tab Tablet 1 Tab PO PRN Q6HRS PRN Spooner-3 (Spooner-3 Fatty Acids) 1,000 Mg Capsule 1,000 Mg PO DAILY Proair Hfa (Albuterol Sulfate) 8.5 Gm Hfa.aer.ad 2 Puff INH PRN Q6HRS PRN One Daily Complete (Multivitamin With Minerals) 1 Each Tablet 1 Each PO DAILY Nexium Capsule (Esomeprazole Magnesium) 40 Mg Capsule.dr 40 Mg PO DAILY Amlodipine Besylate 5 Mg Tablet 5 Mg PO DAILY Crestor (Rosuvastatin Calcium) 10 Mg Tablet 10 Mg PO DAILY Losartan Potassium 50 Mg Tablet 50 Mg PO DAILY Vitamin D3 1,000 Unit Tablet (Ca Cmb No.1/Vit D3/B-6/Fa/B12) 1 Each Tablet 1 Each PO DAILY Vitals/I & O Vital Sign - Last 24 Hours 06/18/21 06/18/21 06/18/21 06/18/21 10:56 11:40 12:15 15:00 Temp 98.8 98.8 Pulse 84 89 Resp 20 20 18 20 B/P (MAP) 105/56 (72) 102/58 (73) Pulse Ox 96 O2 Delivery Room Air Room Air 06/18/21 06/18/21 06/18/21 06/18/21 17:57 17:59 19:29 20:10 Temp 98.2 98.0 98.2 98.0 Pulse 103 103 84 Resp 20 18 B/P (MAP) 179/71 179/71 (107) 90/48 (62) Pulse Ox 95 93 O2 Delivery Room Air Room Air Room Air 06/18/21 06/18/21 06/18/21 06/19/21 21:59 22:29 23:33 03:00 Temp 99.4 99.4 Pulse 75 Resp 18 18 B/P (MAP) 96/61 (73) Pulse Ox 93 93 O2 Delivery Room Air Room Air Room Air Room Air 06/19/21 06/19/21 06/19/21 06/19/21 04:46 05:17 06:45 07:40 Temp 99.3 99.3 Pulse 73 73 Resp 20 16 B/P (MAP) 112/60 (77) 112/60 Pulse Ox 93 93 O2 Delivery Room Air Room Air Room Air 06/19/21 06/19/21 06/19/21 07:45 09:29 09:59 Pulse Ox 93 93 O2 Delivery Room Air Room Air Room Air Intake and Output 06/18/21 06/18/21 06/19/21 15:00 23:00 07:00 Intake Total 700 ml 900 ml Balance 700 ml 900 ml Justifications for Admission Other Justification ANNE LUNA MD Jun 19, 2021 10:31
[2021-06-19] MEDS ORDERED: SENN-209 PO (10:40)
[2021-06-19] MEDS ORDERED: CHOL10004 PO (10:40)
[2021-06-19] MEDS ORDERED: METO50TA4 PO (10:40)
[2021-06-19] MEDS ORDERED: ACET500T68 PO (10:40)
[2021-06-19] MEDS ORDERED: OXYC5TAB4 PO (10:40)
--- NOTE | 2021-06-19 10:41 | SNU/HH DC ---
DISCHARGE ORDERS DISCHARGE INFORMATION: DISCHARGE DATE: Jun 19, 2021 CONDITION ON DISCHARGE: Stable CODE STATUS: Code Status: Full PRISON: SNF STAY <30 DAYS: Yes POST DISCHARGE ORDERS: ACTIVITY ORDERS: Activity as tolerated, Avoid exertion, Progressive ambulation WEIGHT BEARING STATUS: No restrictions BATHING ORDERS: Shower-keep dressing dry, No Tub Bath until see Dr. TONY AFTER DISCHARGE: Regular WOUND/INCISION CARE: Ice to area for comfort, Keep wound/cast CDI, Do not change dressing, Reinforce dressing PRN, No wound care needed OTHER WOUND INSTRUCTIONS: DO NOT change ZENON dressing. It remains in place till your follow up appt CHECKS AFTER DISCHARGE: CHECKS AFTER DISCHARGE: Check blood press - daily FOLLOW-UP: PHYSICIAN FOLLOW-UP: dr. mccann the week following dismissal from SNF ADDITIONAL FOLLOW-UP: MARTHA Almaraz on June 30 at 9am. [phone] TREATMENT/EQUIPMENT ORDERS: ADAPTIVE EQUIPMENT NEEDED: None Physical Therapy For: Evalulation/Treatment Occupational Therapy For: Evaluation/Treatment DISCHARGE MEDICATIONS: Home Meds Active Scripts Cholecalciferol (Vitamin D3) (Vitamin D3 ) 25 Mcg Tablet, 1000 UNIT PO DAILY for vitamin d supplement, #30 TAB Prov:ANNE MCCANN MD 06/19/21 Sennosides/Docusate Sodium (Stool Softener-Stimulant Lax) 1 Each Tablet, 2 TAB PO QHS for prevent constipation, #60 TAB Prov:ANNE MCCANN MD 06/19/21 Acetaminophen (ACETAMINOPHEN) 500 Mg Tablet, 500 MG PO QID for pain, #28 TAB Prov:ANNE MCCANN MD 06/19/21 Oxycodone Hcl (OXYCODONE HCL IMMED.RELEASE ) 5 Mg Tablet, 5 MG PO PRN Q4HRS PRN for pain score 7-10, #28 TAB Prov:ANNE MCCANN MD 06/19/21 Metoprolol Succinate (Toprol XL) 50 Mg Tab.er.24h, 50 MG PO DAILY for hypertension, #30 TAB.SR Prov:ANNE MCCANN MD 06/19/21 Diazepam (DIAZEPAM) 5 Mg Tablet, 5 MG PO PRN QHS PRN for ANXIETY, #30 TAB Prov:ANNE MCCANN MD 07/19/18 Reported Medications Aspirin (ASPIRIN EC) 325 Mg Tablet.dr, 1 TAB PO BID for blood thinner for 30 Days, #60 TAB 0 Refills 06/16/21 Polyethylene Glycol 3350 (MIRALAX) 119 Gm Powder, 1 TBS PO DAILY for prevent constipation, GM 06/04/21 Vit A/Vit C/Vit E/Zinc/Copper (PRESERVISION AREDS SOFTGEL) 1 Each Capsule, 1 EACH PO DAILY for eye supplement, CAP 06/04/21 Lamoni-3 Fatty Acids (OMEGA-3) 1,000 Mg Capsule, 1000 MG PO DAILY for heart health, CAP 08/22/19 Albuterol Sulfate (Proair Hfa) 8.5 Gm Hfa.aer.ad, 2 PUFF INH PRN Q6HRS PRN for SHORTNESS OF BREATH 08/23/18 Multivitamin With Minerals (ONE DAILY COMPLETE) 1 Each Tablet, 1 EACH PO DAILY for supplement, TAB 07/17/18 Esomeprazole Magnesium (NEXIUM CAPSULE) 40 Mg Capsule.dr, 40 MG PO DAILY for gerd 05/12/13 Rosuvastatin Calcium (CRESTOR) 10 Mg Tablet, 10 MG PO DAILY for HLD 05/12/13 Ca Cmb No.1/Vit D3/B-6/Fa/B12 (VITAMIN D3 1,000 UNIT TABLET) 1 Each Tablet, 1 EA CH PO DAILY 05/12/13 Discontinued Reported Medications Docusate Sodium (STOOL SOFTENER) 50 Mg Capsule, 50 MG PO DAILY for prevent constipation, CAP 06/04/21 [prevagen] No Conflict Check, 1 TAB PO DAILY for memory supplement 06/04/21 Biotin (Biotin) 5,000 Mcg Tab.rapdis, 5000 MCG PO DAILY for hair skin and nail supplement, TAB 06/04/21 Calcium Carbonate (CALCIUM CARBONATE) 600 Mg Tablet, 1 TAB PO DAILY for Supplement for 30 Days, #30 TAB 0 Refills 08/22/19 Metoprolol Succinate (METOPROLOL SUCCINATE ( XL )) 25 Mg Tab.er.24h, 50 MG PO DAILY PRN for HYPERTENSION, #30 TAB 0 Refills 08/22/19 Hydrocodone Bit/Acetaminophen (HYDROCODONE-APAP 5-325 ) 1 Tab Tablet, 1 TAB PO PRN Q6HRS PRN for PAIN, TAB 0 Refills 08/22/19 Amlodipine Besylate (AMLODIPINE BESYLATE) 5 Mg Tablet, 5 MG PO DAILY for hypertension 05/12/13 Losartan Potassium (LOSARTAN POTASSIUM) 50 Mg Tablet, 50 MG PO DAILY for HTN 05/12/13 Discontinued Scripts Benzonatate (TESSALON PERLE) 100 Mg Capsule, 1 CAP PO TID for cough, #21 CAP Prov:MEGAN CRUZ MD 10/27/20 ANNE MCCANN MD Jun 19, 2021 10:41
--- NOTE | 2021-06-19 10:47 | PDOC ---
Provider Note Date of Service: DATE: 06/19/21 TIME: 10:46 Provider Note discharge summary dictated # [id number] Justifications for Admission Other Justification ANNE LUNA MD Jun 19, 2021 10:47
[2021-06-19] MEDS ORDERED: OXYC5CAP PO (10:54)
[2021-06-19] MEDS ORDERED: DIAZ5TAB PO (10:54)
--- NOTE | 2021-06-19 12:28 | DS ---
DATE OF DISCHARGE: 06/19/2021 LOCATION: The patient is in room 460. ATTENDING PHYSICIAN: Dr. Khanh Fuentes Jr. CONSULTANTS: Andres Fernández MD FINAL DIAGNOSES: 1. Right total knee arthroplasty for osteoarthritis. 2. Osteoarthritis. 3. Hypertension. 4. Hyperlipidemia. 5. Fibromyalgia. 6. History of adenocarcinoma of the right upper lobe of the lung, treated with radiation therapy, in remission. 7. History of non-Hodgkin's lymphoma in the past, treated with chemo and radiation therapy, in remission. 8. Acute blood loss anemia. HOSPITAL COURSE: The patient is a 76-year-old -[place] female, admitted to [facility] on June 16, 2021 for a same day right total knee arthroplasty for osteoarthritis and tolerated surgery well. She was given lactulose and had good results and was taking Senokot and MiraLax to prevent constipation. Her amlodipine and losartan were discontinued as her blood pressure is on the low side of normal, but metoprolol was continued. She did participate in therapy and will be dismissed later today to a assisted facility for physical and occupational therapy. She will be dismissed on oxycodone 5 mg every 4 hours p.r.n., 20 tablets dispensed, no refill; Valium 5 mg at bedtime p.r.n., 7 tablets, no refill; MiraLax 17 grams daily; Senokot-S 2 tablets every day; Nexium 20 mg every day; Crestor to 10 mg every day and vitamin D at 1000 units every day. She will also be dismissed on the aspirin 325 mg b.i.d. for 30 days for DVT prophylaxis. She will continue her fish oil 1 gram daily and multiple vitamin every day. GLORIA/SHASHI SMALLWOOD: ALBAN/josé TID: [id number]
[2021-06-19 13:15] VITALS: BP 116/62
--- NOTE | 2021-06-19 14:40 | NUR ---
Patient left around 1355 to [facility]. Report called to Zainab at [facility] around 1246 and paperwork given to their transportation. Discharge education gone over with the facility and with the patient. NO IV access present. ZENON Dressing CDI and working properly. Patient left with all her belongings. NO concerns noted at discharge.
--- NOTE | 2021-06-19 16:28 | PN ---
DATE: 06/19/2021 BRIEF NOTE The patient is seen and examined as a courtesy per Dr. Fernández's request. He was having problems with the computer system getting the prescriptions over to her rehab unit at the [facility]. I did put in prescriptions for oxycodone 5 mg q.6 hours p.r.n. with 30 tablets, no refills and Valium 5 mg at bedtime with 10 tablets, no refills. SINA/SHASHI DR: Cris TID: [id number]
--- NOTE | 2021-06-23 11:08 | PDOC4 ---
OPERATIVE NOTE Date: Date: Jun 16, 2021 Pre-Op Diagnosis: Severe degenerative joint disease right knee Post-Op Diagnosis: Same Procedure Performed: Right total knee arthroplasty Surgeon: Alfredo Anesthesia Type: General Blood Loss: 50 cc Specimans Obtained: Bone and soft tissue right knee Findings: See dictation Jacy 4 tibia size 4 femur 29 patella 11 mm tibial polyethylene insert Complications: None STEVE THOMAS Jr. DO Jun 23, 2021 11:08
== END 2021-06-19 14:00 ==
LOC: SURG 05:56 → 4 SOUTHEST 09:36 → INTOOBSV 09:36
PROVIDERS: ADMIT Orthopaedic Surgery; ATTEND Orthopaedic Surgery
DX: M17.11 Unilateral primary osteoarthritis, right knee (principal); Z20.822 Contact with and (suspected) exposure to COVID-19; I10 Essential (primary) hypertension; E78.5 Hyperlipidemia, unspecified; D62 Acute posthemorrhagic anemia; M79.7 Fibromyalgia; Z90.710 Acquired absence of both cervix and uterus; Z85.118 Personal history of other malignant neoplasm of bronchus and lung; Z85.72 Personal history of non-Hodgkin lymphomas; Z92.21 Personal history of antineoplastic chemotherapy; Z92.3 Personal history of irradiation
CPT/HCPCS: 27447; 36415; 73560; 80048; 85014; 85018; 85025; 86850; 86900; 86901; 96365; 96366; 96375; 97110; 97116; 97150; 97162; 97165; 97530; 97535; A4213; A4930; A6253; A6258; A6450; A6550; C1713; C1776; G0378; G0379; J0171; J1100; J1885; J2250; J2270; J2370; J2405; J2704; J2795; J3010; J3490; J7030; U0003